=== PATIENT | male | born 1950 | race Caucasian/White ===

== ENCOUNTER 2019-07-07 12:21 | Emergency (ER) | payer MEDICARE, SELFPAY ==
--- NOTE | 2019-07-07 12:23 | ERPHSYRPT ---
- History of Present Illness Time Seen by Provider: 07/07/19 12:23 Physician History: This 68-year-old white gentleman who has a history of hypertension but has not been taking his medications for at least 2 months. In the last 5 to 6 days he had noticed some pain in the back of his head. He has had no trauma. He has had no visual changes. He has had bilateral earaches over the same 5 to 6 days. No flulike symptoms. His blood pressure on arrival was systolic over 170 and diastolic over 100. Patient denies shortness of breath, he denies chest pain, he denies abdominal pain. He is active and walks often. Allergies/Adverse Reactions: No Known Drug Allergies Allergy (Unverified 07/26/11 12:04) Hx Tetanus, Diphtheria Vaccination/Date Given: Yes Hx Influenza Vaccination/Date Given: No (2010) Hx Pneumococcal Vaccination/Date Given: No Travel Risk - International Travel Have you traveled outside of the country in past 3 weeks: No Have you or anyone close to you been diagnosed with or: No Do your reside in a community with a known COVID-19 case?: Yes If Yes where:: [facility] - Coronavirus Screening Has patient experienced Coronavirus symptoms: No - Review of Systems Constitutional: No Symptoms Eyes: No Symptoms Ears, Nose, & Throat: No Symptoms Respiratory: No Symptoms Cardiac: No Symptoms Abdominal/Gastrointestinal: No Symptoms Genitourinary Symptoms: No Symptoms Musculoskeletal: No Symptoms Skin: No Symptoms Neurological: Headache Psychological: No Symptoms Endocrine: No Symptoms Hematologic/Lymphatic: No Symptoms Immunological/Allergic: No Symptoms All Other Systems: Reviewed and Negative - Past Medical History Pertinent Past Medical History: Yes Neurological History: No Pertinent History ENT History: Macular Degeneration Cardiac History: Other Respiratory History: No Pertinent History Endocrine Medical History: No Pertinent History Musculoskeletal History: Arthritis GI Medical History: Diverticulitis, Diverticulosis History: Other Psycho-Social History: No Pertinent History Male Reproductive Disorders: No Pertinent History Other Medical History: kidney stone - Past Surgical History Past Surgical History: Yes Neuro Surgical History: No Pertinent History Cardiac: No Pertinent History Respiratory: No Pertinent History Gastrointestinal: Bowel Surgery Genitourinary: No Pertinent History Musculoskeletal: No Pertinent History, Orthopedic Surgery Male Surgical History: No Pertinent History Other Surgical History: CYSTOSCOPY TO REMOVE KIDNEY STONE. RIGHT BELOW ELBOW AMPUTEE. RIGHT LEG SURGERY - Social History Smoking Status: Current every day smoker How long have you smoked: 40 Exposure to second hand smoke: Yes Alcohol Use: Socially Drug Use: none Patient Lives Alone: No Significant Family History: no pertinent family hx - Nursing Vital Signs Nursing Vital Signs: Initial Vital Signs Temperature 97.8 F 07/07/19 12:26 Pulse Rate 66 07/07/19 12:26 Respiratory Rate 20 07/07/19 12:26 Blood Pressure 176/101 07/07/19 12:26 O2 Sat by Pulse Oximetry 99 07/07/19 12:26 Pain Scale Pain Intensity 8 - Physical Exam General Appearance: no apparent distress, alert, anxiety Eye Exam: PERRL/EOMI, eyes nml inspection Ears, Nose, Throat Exam: normal ENT inspection, moist mucous membranes Neck Exam: normal inspection, non-tender, supple, full range of motion Respiratory Exam: normal breath sounds, lungs clear, airway intact, No chest tenderness, No respiratory distress Cardiovascular Exam: regular rate/rhythm, normal heart sounds, normal peripheral pulses Gastrointestinal/Abdominal Exam: soft, No normal bowel sounds, No tenderness, No guarding, No rebound Back Exam: normal inspection, normal range of motion, No CVA tenderness Extremity Exam: normal inspection, normal range of motion, pelvis stable Mental Status Exam: alert, oriented x 3, 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 Exam: normal hearing, normal speech, PERRL, tongue midline Coordination/Gait Exam: normal finger to nose, normal gait, normal cerebellar function Motor/Sensory Exam: no motor deficit, no sensory deficit Skin Exam: normal color, warm, dry Lymphatic Exam: No adenopathy SpO2 Interpretation: normal O2 Delivery: Room Air - Course Nursing assessment & vital signs reviewed: Yes Ordered Tests: Active Orders 24 hr Category Date Time Status HEAD WITHOUT CONTRAST [CT] Stat Exams 07/07/19 12:41 Completed Medication Summary Discontinued Medications Generic Name Dose Route Start Last Admin Trade Name Freq PRN Reason Stop Dose Admin Hydrocodone Bitart/Acetaminophen 1 tab 07/07/19 12:41 07/07/19 12:55 [place] 7.5/325 Mg Tab PO 07/07/19 12:42 1 tab STAT ONE Administration Clonidine 0.1 mg 07/07/19 12:41 07/07/19 12:55 [place] 0.1 Mg PO 07/07/19 12:42 0.1 mg STAT ONE Administration Clonidine Confirm 07/07/19 12:48 [place]ap[place] 0.1 Mg Administered 07/07/19 12:49 Dose 0.1 mg .ROUTE .STK-MED ONE - Progress Progress: improved, re-examined Air Movement: good Progress Note: 07/07/19 13:24 CAT scan of his head reveals no evidence of any acute intracranial process. Patient symptoms have improved. His blood pressure at the time of discharge is 146/87. Blood Culture(s) Obtained: No Antibiotics given: No Counseled pt/family regarding: diagnosis, need for follow-up, rad results - Departure Departure Disposition: Home Clinical Impression: Hypertension, Headache Condition: Stable Critical Care Time: No Referrals: JONATHAN BOOGIE [Primary Care Provider] - Additional Instructions: Take your medication as prescribed. Follow-up with your primary care for persistent symptoms. Keep twice a day log of your blood pressure. Prescriptions: Hydrocodone/APAP 5-325 Tab^^^ [[place] 5-325 Tablet^^^] 1 tab PO Q12H PRN PRN #4 tablet MDD 2 PRN Reason: Pain
[2019-07-07] MEDS ORDERED: Catapres 0.1 MG PO ONE (12:41)
[2019-07-07] MEDS ORDERED: NORCO 7.5/325 MG TAB PO ONE (12:41)
[2019-07-07] MEDS ORDERED: Catapres 0.1 MG ONE (12:48)
--- NOTE | 2019-07-07 13:08 | XRAY ---
Indication: Occipital headache for 5-6 days. No known injury. Multiple contiguous axial images obtained through the head without contrast. Comparison: October 09, 2012. Again normal appearing brain parenchyma, ventricles, and bony calvarium. Incompletely visualized 1 cm right maxillary sinus polyp/retention cyst not previously imaged. Remaining visualized paranasal sinuses and mastoid air cells are clear. Impression: Small right maxillary sinus polyp/retention cyst. Remaining CT head without contrast exam is normal.
[2019-07-07 13:30] VITALS: BP 146/87; PULSE 56; O2SAT 98
== END 2019-07-07 13:45 | disposition home or self-care (01) ==
LOC: ED 12:21
DX: I10 Essential (primary) hypertension (principal); R51 Headache; Z91.14 Patient's other noncompliance with medication regimen; Z87.442 Personal history of urinary calculi
CPT/HCPCS: 70450; 99283; A9270-GY

== ENCOUNTER 2020-10-28 07:22 | Day surgery (SDC) | payer MEDICARE ==
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
[2020-10-28] MEDS ORDERED: Lactated Ringers 1,000 ML IV SCH (07:30)
[2020-10-28] MEDS ORDERED: Lactated Ringers 1,000 ML IV ONE (07:49)
[2020-10-28] MEDS ORDERED: DIPRIVAN 200 MG/20 ML IV ONE ×3 (10:42→11:01)
[2020-10-28 11:51] VITALS: BP 143/90; PULSE 62; O2SAT 98
--- NOTE | 2020-10-28 14:07 | OP ---
SURGERY DATE/TIME: 10/28/2020 1042 PREOPERATIVE DIAGNOSIS: Anemia. POSTOPERATIVE DIAGNOSES: 1) Mild antritis with very minimal blood loss. 2) Satisfactory colon with no blood loss. PROCEDURES: 1) EGD with antral biopsy. 2) Colonoscopy complete to the cecum with findings of moderate hemorrhoids. SURGEON: Marvel Aviles M.D. ANESTHESIA: MAC. COMPLICATIONS: None. CONDITION: Stable. INDICATION: The patient is anemic and presents for both upper and lower scope. DESCRIPTION OF PROCEDURE: Taken to endoscopy. Pharyngoesophageal junction normal. Esophagus normal down to gastroesophageal junction. Gastroesophageal junction Grade 2/4 gastroesophageal reflux disease. There is some antritis. Mid Level Business Analyst biopsy of the antritis. Duodenal bulb, second portion of duodenum satisfactory. Scope looped upon itself. There was some hiatal hernia. The scope was withdrawn. Anal digital examination satisfactory. Scope advanced to the cecum. There were moderate internal hemorrhoids. There was one prolapsing hemorrhoid/polyp looked totally benign. Circumferential withdrawal moderate internal and external hemorrhoids present. The patient tolerated the procedure satisfactorily.
== END 2020-10-28 12:06 | disposition home or self-care (01) ==
LOC: SDC 07:22
PROVIDERS: ATTEND Surgery
DX: K29.61 Other gastritis with bleeding (principal); D64.9 Anemia, unspecified; K64.8 Other hemorrhoids; Z79.899 Other long term (current) drug therapy
CPT/HCPCS: 99100; J2704

== ENCOUNTER 2021-03-20 11:33 | Observation (INO) | payer MEDICARE, SELFPAY ==
[2021-03-20] MEDS: Sodium Chloride 0.9% 1000 ML 1,000 ML IV SCH ×2 (11:57→18:38)
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
[2021-03-20 13:00] LABS: Hemoglobin 8.5 gm/dl (12.5-18.0); Mean Cell Volume 72.6 fl (78-100); Mean Corpuscular Hemoglobin 20.6 pg (26-32); Mean Corpuscular Hgb Concent. 28.3 g/dl (32-36); Mean Platelet Volume 9.6 fl (7.5-11.0); Platelet Count 164 K/mm3 (150-450); Red Blood Count 4.13 M/mm3 (4.1-5.6); Red Cell Distribution Width 17.2 % (11.5-14.0); White Blood Count 2.8 K/mm3 (4.0-10.5)
[2021-03-20 13:01] LABS: INR 1.1 (0.8-3.0)
[2021-03-20 13:11] LABS: COVID AG -BINAX NOW RAPID TEST NEGATIVE (NEGATIVE)
[2021-03-20 13:14] LABS: ALBUMIN 4.1 g/dL (3.5-5.0); ALKALINE PHOSPHATASE 60 U/L (38-126); AMYLASE 73 U/L (30-110); ANION GAP 10.4 MEQ/L (5-15); BLOOD UREA NITROGEN 22 mg/dL (9-20); CHLORIDE 109 mmol/L (98-107); Carbon Dioxide 27 mmol/L (22-30); Creatinine 1 0.82 mg/dL (0.66-1.25); EST GLOMERULAR FILTRATION RATE > 60.0 ML/MIN; Glucose 86 mg/dL (74-106); LIPASE 98 U/L (23-300); MAGNESIUM 1.9 mg/dL (1.6-2.3); NT PRO BNP 166 pg/mL (0-900); Potassium 4.5 mmol/L (3.5-5.1); SGOT/AST 23 U/L (17-59); SGPT/ALT 16 U/L (0-50); SODIUM 142 mmol/L (137-145); Total Protein 6.8 g/dL (6.3-8.2)
[2021-03-20 13:40] LABS: INFLUENZA A NEGATIVE (NEGATIVE); INFLUENZA B NEGATIVE (NEGATIVE)
[2021-03-20 15:23] LABS: Appearance CLEAR (CLEAR); Bilirubin NEGATIVE (NEGATIVE); Blood SMALL Ery/ul (0-5); Glucose NEGATIVE (NEGATIVE); Ketones NEGATIVE (NEGATIVE); Leukocyte Esterase NEGATIVE (NEGATIVE); Nitrite NEGATIVE (NEGATIVE); Protein,Urine Dip NEGATIVE (Negative); Urobilinogen NEGATIVE mg/dL (0-1)
[2021-03-20 15:23] LABS: Eosinophil 2 % (0.00-3.0); Lymphocytes 20 % (24-44); Monocyte 10 % (0.0-12.0); Neutrophils 68 % (36.-66.); Total Cells Counted 100
[2021-03-20 15:24] LABS: ANISOCYTOSIS 1+; Hypochromia 1+; Platelet Estimate NORMAL (NORMAL)
[2021-03-20] MEDS ORDERED: ROCEPHIN 1 Gm-D5w 50 ml Bag** 1 G/50 ML IVPB IV ONE (18:15)
[2021-03-20] MEDS ORDERED: solu-MEDROL ONE ×2 (18:15→23:25)
[2021-03-20] MEDS: solu-MEDROL 125 MG, Sterile H2O 10 ml 2 ML IV SCH ×4 (18:38→23:33)
[2021-03-20] MEDS: ROCEPHIN 1 Gm-D5w 50 ml Bag** 1 G/50 ML IVPB IV SCH (18:38)
--- NOTE | 2021-03-20 19:12 | XRAY ---
Indication: Short of breath. D-dimer 331. History emphysema. Multiple contiguous axial images obtained through the chest using 80 cc Isovue 370 contrast and PE protocol. Comparison: November 05, 2020. There is good opacification of the pulmonary arteries to include the lobar and segmental branches. No pulmonary embolus. Heart not enlarged. Aorta is normal in course and caliber without aneurysm. Stable chunky mediastinal and right hilar calcified nodes. No pathologic mediastinal/hilar lymphadenopathy. Stable small hiatal hernia. Lungs again demonstrates mild interstitial alveolar opacities in the peripheral right lower and lesser degree right upper lobes less than before. There is again moderate right pleural effusion more than before. Remaining lungs again demonstrates pulmonary emphysema and bilateral tiny calcified granulomas. Stable tiny metallic shrapnel in the right chest wall and right lower lobe. Bony thorax intact. Limited upper abdomen again demonstrates tiny calcified splenic granulomas. Impression: 1. Negative pulmonary embolus. 2. Right upper and right lower lobe interstitial alveolar opacities less than before. Increasing moderate right effusion. 3. Again incidental pulmonary emphysema, small hiatal hernia, metallic shrapnel, and old granulomatous disease. Comment: Preliminary interpretation made by [facility]. No critical discrepancy.
--- NOTE | 2021-03-20 19:14 | XRAY ---
Indication: Short of breath. History emphysema. Comparison: September 23, 2020. Portable chest again hyperinflated with CT proven small right effusion and mediastinal/hilar calcified nodes. Remaining heart and lungs are unremarkable. Bony thorax intact again with numerous right chest radiopaque foreign bodies.
[2021-03-20] MEDS ORDERED: Sterile H2O 10 ml IJ ONE (23:25)
[2021-03-20] MEDS: TYLENOL EXTRA STRENGTH 500 MG PO PRN (23:58)
[2021-03-21] MEDS ORDERED: Sterile H2O 10 ml IJ ONE (05:23)
[2021-03-21] MEDS ORDERED: solu-MEDROL ONE (05:23)
[2021-03-21] MEDS: solu-MEDROL 125 MG, Sterile H2O 10 ml 2 ML IV SCH ×2 (05:30)
[2021-03-21 05:56] LABS: Hematocrit 29.1 % (42-50); Hemoglobin 8.4 gm/dl (12.5-18.0); Mean Cell Volume 72.9 fl (78-100); Mean Corpuscular Hemoglobin 21.1 pg (26-32); Mean Corpuscular Hgb Concent. 28.9 g/dl (32-36); Mean Platelet Volume 10.6 fl (7.5-11.0); Platelet Count 169 K/mm3 (150-450); Red Blood Count 3.99 M/mm3 (4.1-5.6); Red Cell Distribution Width 16.8 % (11.5-14.0); White Blood Count 3.4 K/mm3 (4.0-10.5)
[2021-03-21 06:05] LABS: ALBUMIN 3.7 g/dL (3.5-5.0); ALKALINE PHOSPHATASE 51 U/L (38-126); ANION GAP 11.7 MEQ/L (5-15); BLOOD UREA NITROGEN 21 mg/dL (9-20); CHLORIDE 109 mmol/L (98-107); Calcium 8.4 mg/dL (8.4-10.2); Carbon Dioxide 22 mmol/L (22-30); Creatinine 1 0.66 mg/dL (0.66-1.25); EST GLOMERULAR FILTRATION RATE > 60.0 ML/MIN; Glucose 177 mg/dL (74-106); Potassium 4.1 mmol/L (3.5-5.1); SGOT/AST 27 U/L (17-59); SGPT/ALT 15 U/L (0-50); SODIUM 139 mmol/L (137-145); Total Protein 6.6 g/dL (6.3-8.2)
[2021-03-21 07:45] LABS: Slide Review YES
--- NOTE | 2021-03-21 08:50 | PCM.SSS ---
History of Present Illness - Chief Complaint Chief Complaint: COPD EXACERBATION History of Present Illness: is a 70 year old male pt of mined from [facility] with CAD, COPD, hx traumatic amputation who came in with STOREY and chest pain to ER. The CTA chest was neg for PE; did show some worsening R pleural effusion. Pt is a poor historian; he had increasing STOREY and [place], walked perhaps 1000 feet and when he came back was more short of breath than usual. He did c/o some chest pain recently, substernal and L sided with some radiation into the R shoulder. Says it was "just a soreness" then rates it 6-09/04. He attributes this to picking up large pieces of metal recently. Has not required O2. His hgb was 8.5 on admission; is 8.4 this morning. He denies any melena or hematochezia. Apparently he had an EGD/colonoscopy not long ago although I cannot find it in the EMR. Pt has a management aide, Dr. Pugh, but he has cancelled appointments with him and does not see him regularly. Pt c/o bilat LE pain worsening for the past 5 mo or so. - Review of Systems Cardiac: Chest Pain, Edema (chronic, LE bilat), Palpitations Musculoskeletal: Other (bilat calf pain, worsening over past 5 mo) Neurological: Dizziness (he says x 1 about 3 mo ago; says intermittently regardless of activity) All Other Systems: Reviewed and Negative Medications & Allergies Home Medications: Home Medication List No Reportable Medications [No Reported Medications] 03/20/21 [History Confirmed 03/20/21] Allergies/Adverse Reactions: Allergies Allergy/AdvReac Type Severity Reaction Status Date / Time No Known Drug Allergies Allergy Verified 03/20/21 11:55 - Past Medical History Past Medical History: Yes Neurological History: No Pertinent History ENT History: Macular Degeneration Cardiac History: Other Respiratory History: COPD Endocrine Medical History: No Pertinent History Musculoskelatal History: Arthritis GI Medical History: Diverticulitis, Diverticulosis History: Other Pyscho-Social History: No Pertinent History Male Reproductive Disorders: Prostate Problems Comment: kidney stone, mitral valve prolapse, heart starting to enlarge possibly from a bleed, anemia - Past Surgical History Past Surgical History: Yes Neuro Surgical History: No Pertinent History Cardiac History: No Pertinent History Respiratory Surgery: No Pertinent History GI Surgical History: Bowel Surgery Genitourinary Surgical Hx: No Pertinent History Musculskeletal Surgical Hx: Orthopedic Surgery Male Surgical History: No Pertinent History Other Surgical History: CYSTOSCOPY TO REMOVE KIDNEY STONE. RIGHT BELOW ELBOW AMPUTEE. RIGHT LEG SURGERY. portion of bowel and stomach removed - Social History Smoking Status: Current every day smoker How long have you smoked: 50 YEARS Exposure to second hand smoke: Yes Alcohol: None Drug Use: none Significant Family History: no pertinent family hx - Physical Exam Vital Signs: Vital Signs - 24 hr Temp Pulse Resp BP Pulse Ox 03/21/21 07:53 97.0 F 63 19 125/66 93 L 03/21/21 04:00 98.3 F 60 16 131/79 93 L 03/21/21 00:00 97.5 F 68 16 151/72 96 03/20/21 20:00 97.7 F 64 20 151/77 94 L 03/20/21 18:21 100 03/20/21 18:19 72 18 100 03/20/21 17:38 97.7 F 72 20 161/80 100 03/20/21 16:02 97 03/20/21 15:16 59 L 16 150/88 98 03/20/21 11:40 97.8 F 64 18 152/94 97 General Appearance: no apparent distress, alert Neurologic Exam: oriented x 3, cooperative Eye Exam: eyes nml inspection Ears, Nose, Throat Exam: moist mucous membranes Neck Exam: normal inspection, non-tender, No lymphadenopathy Respiratory Exam: lungs clear, diminished breath sounds (good air exchange), No crackles/rales, No rhonchi, No wheezing Cardiovascular Exam: regular rate/rhythm, normal heart sounds, No murmur Gastrointestinal/Abdomen Exam: soft, normal bowel sounds, No tenderness, No distention, No mass, No guarding, No rebound Back Exam: normal inspection, No CVA tenderness, No rash Extremity Exam: normal inspection, No pedal edema, No swelling Skin Exam: normal color, warm, dry, No rash Results - Labs Lab/Micro Results: Lab Results-Last 24 Hours 03/20/21 03/20/21 03/20/21 Range/Units 12:15 12:19 12:19 WBC (4.0-10.5) K/mm3 RBC (4.1-5.6) M/mm3 Hgb (12.5-18.0) gm/dl Hct (42-50) % MCV (78-100) fl MCH (26-32) pg MCHC (32-36) g/dl RDW (11.5-14.0) % Plt Count (150-450) K/mm3 MPV (7.5-11.0) fl Segmented Neutrophils (36.-66.) % Lymphocytes (Manual) (24-44) % Monocytes (Manual) (0.0-12.0) % Eosinophils (Manual) (0.00-3.0) % Hypochromia Platelet Estimate (NORMAL) RBC Morphology Anisocytosis PT (9.4-12.5) SECONDS INR (0.8-3.0) D-Dimer (215-500) ng/mL Sodium (137-145) mmol/L Potassium (3.5-5.1) mmol/L Chloride (98-107) mmol/L Carbon Dioxide (22-30) mmol/L Anion Gap (5-15) MEQ/L BUN (9-20) mg/dL Creatinine (0.66-1.25) mg/dL Estimated GFR ML/MIN Glucose (74-106) mg/dL Lactic Acid (0.4-2.0) Calcium (8.4-10.2) mg/dL Magnesium (1.6-2.3) mg/dL Total Bilirubin (0.2-1.3) mg/dL AST (17-59) U/L ALT (0-50) U/L Alkaline Phosphatase (38-126) U/L Troponin I (0.000-0.034) ng/mL NT-Pro-B Natriuret Pep (0-900) pg/mL Serum Total Protein (6.3-8.2) g/dL Albumin (3.5-5.0) g/dL Amylase (30-110) U/L Lipase (23-300) U/L Procalcitonin (0.030-0.080) ng/mL Urine Color YELLOW (YELLOW) Urine Appearance CLEAR (CLEAR) Urine pH 6.0 (5-6) Ur Specific [place] 1.020 (1.005-1.025) Urine Protein NEGATIVE (Negative) Urine Ketones NEGATIVE (NEGATIVE) Urine Blood SMALL (0-5) Juli[place]esar/ul Urine Nitrite NEGATIVE (NEGATIVE) Urine Bilirubin NEGATIVE (NEGATIVE) Urine Urobilinogen NEGATIVE (0-1) mg/dL Ur Leukocyte Esterase NEGATIVE (NEGATIVE) Urine WBC (Auto) NONE (0-5) /HPF Urine RBC (Auto) NONE (0-2) /HPF U Epithel Cells (Auto) NONE (FEW) /HPF Urine Bacteria (Auto) NONE (NEGATIVE) /HPF Urine Culture Reflexed NO (NO) Urine Glucose NEGATIVE (NEGATIVE) mg/dL Influenza Type A Ag NEGATIVE (NEGATIVE) Influenza Type B Ag NEGATIVE (NEGATIVE) SARS-CoV-2 Ag (Rapid) NEGATIVE (NEGATIVE) Slides for Path Review 03/20/21 03/20/21 03/20/21 Range/Units 12:29 12:29 12:29 WBC 2.8 L (4.0-10.5) K/mm3 RBC 4.13 (4.1-5.6) M/mm3 Hgb 8.5 L (12.5-18.0) gm/dl Hct 30.0 L (42-50) % MCV 72.6 L (78-100) fl MCH 20.6 L (26-32) pg MCHC 28.3 L (32-36) g/dl RDW 17.2 H (11.5-14.0) % Plt Count 164 (150-450) K/mm3 MPV 9.6 (7.5-11.0) fl Segmented Neutrophils 68 H (36.-66.) % Lymphocytes (Manual) 20 L (24-44) % Monocytes (Manual) 10 (0.0-12.0) % Eosinophils (Manual) 2 (0.00-3.0) % Hypochromia 1+ Platelet Estimate NORMAL (NORMAL) RBC Morphology ABNORMAL Anisocytosis 1+ PT 13.0 H (9.4-12.5) SECONDS INR 1.10 (0.8-3.0) D-Dimer 331 (215-500) ng/mL Sodium 142 (137-145) mmol/L Potassium 4.5 (3.5-5.1) mmol/L Chloride 109 H (98-107) mmol/L Carbon Dioxide 27 (22-30) mmol/L Anion Gap 10.4 (5-15) MEQ/L BUN 22 H (9-20) mg/dL Creatinine 0.82 (0.66-1.25) mg/dL Estimated GFR > 60.0 ML/MIN Glucose 86 (74-106) mg/dL Lactic Acid (0.4-2.0) Calcium 9.0 (8.4-10.2) mg/dL Magnesium 1.9 (1.6-2.3) mg/dL Total Bilirubin 0.60 (0.2-1.3) mg/dL AST 23 (17-59) U/L ALT 16 (0-50) U/L Alkaline Phosphatase 60 (38-126) U/L Troponin I (0.000-0.034) ng/mL NT-Pro-B Natriuret Pep 166 (0-900) pg/mL Serum Total Protein 6.8 (6.3-8.2) g/dL Albumin 4.1 (3.5-5.0) g/dL Amylase 73 (30-110) U/L Lipase 98 (23-300) U/L Procalcitonin (0.030-0.080) ng/mL Urine Color (YELLOW) Urine Appearance (CLEAR) Urine pH (5-6) Ur Specific [place] (1.005-1.025) Urine Protein (Negative) Urine Ketones (NEGATIVE) Urine Blood (0-5) Juliocesar/ul Urine Nitrite (NEGATIVE) Urine Bilirubin (NEGATIVE) Urine Urobilinogen (0-1) mg/dL Ur Leukocyte Esterase (NEGATIVE) Urine WBC (Auto) (0-5) /HPF Urine RBC (Auto) (0-2) /HPF U Epithel Cells (Auto) (FEW) /HPF Urine Bacteria (Auto) (NEGATIVE) /HPF Urine Culture Reflexed (NO) Urine Glucose (NEGATIVE) mg/dL Influenza Type A Ag (NEGATIVE) Influenza Type B Ag (NEGATIVE) SARS-CoV-2 Ag (Rapid) (NEGATIVE) Slides for Path Review 03/20/21 03/20/21 03/20/21 Range/Units 12:29 12:29 12:40 WBC (4.0-10.5) K/mm3 RBC (4.1-5.6) M/mm3 Hgb (12.5-18.0) gm/dl Hct (42-50) % MCV (78-100) fl MCH (26-32) pg MCHC (32-36) g/dl RDW (11.5-14.0) % Plt Count (150-450) K/mm3 MPV (7.5-11.0) fl Segmented Neutrophils (36.-66.) % Lymphocytes (Manual) (24-44) % Monocytes (Manual) (0.0-12.0) % Eosinophils (Manual) (0.00-3.0) % Hypochromia Platelet Estimate (NORMAL) RBC Morphology Anisocytosis PT (9.4-12.5) SECONDS INR (0.8-3.0) D-Dimer (215-500) ng/mL Sodium (137-145) mmol/L Potassium (3.5-5.1) mmol/L Chloride (98-107) mmol/L Carbon Dioxide (22-30) mmol/L Anion Gap (5-15) MEQ/L BUN (9-20) mg/dL Creatinine (0.66-1.25) mg/dL Estimated GFR ML/MIN Glucose (74-106) mg/dL Lactic Acid 0.7 (0.4-2.0) Calcium (8.4-10.2) mg/dL Magnesium (1.6-2.3) mg/dL Total Bilirubin (0.2-1.3) mg/dL AST (17-59) U/L ALT (0-50) U/L Alkaline Phosphatase (38-126) U/L Troponin I < 0.012 (0.000-0.034) ng/mL NT-Pro-B Natriuret Pep (0-900) pg/mL Serum Total Protein (6.3-8.2) g/dL Albumin (3.5-5.0) g/dL Amylase (30-110) U/L Lipase (23-300) U/L Procalcitonin 0.038 (0.030-0.080) ng/mL Urine Color (YELLOW) Urine Appearance (CLEAR) Urine pH (5-6) Ur Specific [place] (1.005-1.025) Urine Protein (Negative) Urine Ketones (NEGATIVE) Urine Blood (0-5) Juliocesar/ul Urine Nitrite (NEGATIVE) Urine Bilirubin (NEGATIVE) Urine Urobilinogen (0-1) mg/dL Ur Leukocyte Esterase (NEGATIVE) Urine WBC (Auto) (0-5) /HPF Urine RBC (Auto) (0-2) /HPF U Epithel Cells (Auto) (FEW) /HPF Urine Bacteria (Auto) (NEGATIVE) /HPF Urine Culture Reflexed (NO) Urine Glucose (NEGATIVE) mg/dL Influenza Type A Ag (NEGATIVE) Influenza Type B Ag (NEGATIVE) SARS-CoV-2 Ag (Rapid) (NEGATIVE) Slides for Path Review 03/20/21 03/20/21 03/21/21 Range/Units 14:16 18:45 04:30 WBC 3.4 L (4.0-10.5) K/mm3 RBC 3.99 L (4.1-5.6) M/mm3 Hgb 8.4 L (12.5-18.0) gm/dl Hct 29.1 L (42-50) % MCV 72.9 L (78-100) fl MCH 21.1 L (26-32) pg MCHC 28.9 L (32-36) g/dl RDW 16.8 H (11.5-14.0) % Plt Count 169 (150-450) K/mm3 MPV 10.6 (7.5-11.0) fl Segmented Neutrophils (36.-66.) % Lymphocytes (Manual) (24-44) % Monocytes (Manual) (0.0-12.0) % Eosinophils (Manual) (0.00-3.0) % Hypochromia Platelet Estimate (NORMAL) RBC Morphology Anisocytosis PT (9.4-12.5) SECONDS INR (0.8-3.0) D-Dimer (215-500) ng/mL Sodium (137-145) mmol/L Potassium (3.5-5.1) mmol/L Chloride (98-107) mmol/L Carbon Dioxide (22-30) mmol/L Anion Gap (5-15) MEQ/L BUN (9-20) mg/dL Creatinine (0.66-1.25) mg/dL Estimated GFR ML/MIN Glucose (74-106) mg/dL Lactic Acid (0.4-2.0) Calcium (8.4-10.2) mg/dL Magnesium (1.6-2.3) mg/dL Total Bilirubin (0.2-1.3) mg/dL AST (17-59) U/L ALT (0-50) U/L Alkaline Phosphatase (38-126) U/L Troponin I < 0.012 < 0.012 (0.000-0.034) ng/mL NT-Pro-B Natriuret Pep (0-900) pg/mL Serum Total Protein (6.3-8.2) g/dL Albumin (3.5-5.0) g/dL Amylase (30-110) U/L Lipase (23-300) U/L Procalcitonin (0.030-0.080) ng/mL Urine Color (YELLOW) Urine Appearance (CLEAR) Urine pH (5-6) Ur Specific [place] (1.005-1.025) Urine Protein (Negative) Urine Ketones (NEGATIVE) Urine Blood (0-5) Juliocesar/ul Urine Nitrite (NEGATIVE) Urine Bilirubin (NEGATIVE) Urine Urobilinogen (0-1) mg/dL Ur Leukocyte Esterase (NEGATIVE) Urine WBC (Auto) (0-5) /HPF Urine RBC (Auto) (0-2) /HPF U Epithel Cells (Auto) (FEW) /HPF Urine Bacteria (Auto) (NEGATIVE) /HPF Urine Culture Reflexed (NO) Urine Glucose (NEGATIVE) mg/dL Influenza Type A Ag (NEGATIVE) Influenza Type B Ag (NEGATIVE) SARS-CoV-2 Ag (Rapid) (NEGATIVE) Slides for Path Review YES 03/21/21 Range/Units 04:30 WBC (4.0-10.5) K/mm3 RBC (4.1-5.6) M/mm3 Hgb (12.5-18.0) gm/dl Hct (42-50) % MCV (78-100) fl MCH (26-32) pg MCHC (32-36) g/dl RDW (11.5-14.0) % Plt Count (150-450) K/mm3 MPV (7.5-11.0) fl Segmented Neutrophils (36.-66.) % Lymphocytes (Manual) (24-44) % Monocytes (Manual) (0.0-12.0) % Eosinophils (Manual) (0.00-3.0) % Hypochromia Platelet Estimate (NORMAL) RBC Morphology Anisocytosis PT (9.4-12.5) SECONDS INR (0.8-3.0) D-Dimer (215-500) ng/mL Sodium 139 (137-145) mmol/L Potassium 4.1 (3.5-5.1) mmol/L Chloride 109 H (98-107) mmol/L Carbon Dioxide 22 (22-30) mmol/L Anion Gap 11.7 (5-15) MEQ/L BUN 21 H (9-20) mg/dL Creatinine 0.66 (0.66-1.25) mg/dL Estimated GFR > 60.0 ML/MIN Glucose 177 H (74-106) mg/dL Lactic Acid (0.4-2.0) Calcium 8.4 (8.4-10.2) mg/dL Magnesium (1.6-2.3) mg/dL Total Bilirubin 0.60 (0.2-1.3) mg/dL AST 27 (17-59) U/L ALT 15 (0-50) U/L Alkaline Phosphatase 51 (38-126) U/L Troponin I (0.000-0.034) ng/mL NT-Pro-B Natriuret Pep (0-900) pg/mL Serum Total Protein 6.6 (6.3-8.2) g/dL Albumin 3.7 (3.5-5.0) g/dL Amylase (30-110) U/L Lipase (23-300) U/L Procalcitonin (0.030-0.080) ng/mL Urine Color (YELLOW) Urine Appearance (CLEAR) Urine pH (5-6) Ur Specific [place] (1.005-1.025) Urine Protein (Negative) Urine Ketones (NEGATIVE) Urine Blood (0-5) Juliocesar/ul Urine Nitrite (NEGATIVE) Urine Bilirubin (NEGATIVE) Urine Urobilinogen (0-1) mg/dL Ur Leukocyte Esterase (NEGATIVE) Urine WBC (Auto) (0-5) /HPF Urine RBC (Auto) (0-2) /HPF U Epithel Cells (Auto) (FEW) /HPF Urine Bacteria (Auto) (NEGATIVE) /HPF Urine Culture Reflexed (NO) Urine Glucose (NEGATIVE) mg/dL Influenza Type A Ag (NEGATIVE) Influenza Type B Ag (NEGATIVE) SARS-CoV-2 Ag (Rapid) (NEGATIVE) Slides for Path Review - Radiology Impressions Radiology Exams & Impressions: Radiology Procedures Category Date Time Status CHEST 1 VIEW (PORTABLE) Stat Exams 03/20/21 12:02 Completed CHEST WITH CONTRAST [CT] Stat Exams 03/20/21 14:38 Completed Assessment/Plan (1) Chest pain Current Visit: Yes Status: Acute Qualifiers: Chest pain type: other chest pain Qualified Code(s): R07.89 - Other chest pain; R07.8 - Other chest pain Assessment & Plan: Unsure if cardiac, but will have him do outpatient stress test. If troponins neg x 5, can d/c to home. Code(s): R07.9 - CHEST PAIN, UNSPECIFIED (2) COPD (chronic obstructive pulmonary disease) Current Visit: Yes Status: Chronic Qualifiers: COPD type: chronic bronchitis Chronic bronchitis type: unspecified Qualified Code(s): J42 - Unspecified chronic bronchitis Assessment & Plan: He was started on rocephin and IV steroids in ER. He does not endorse much improvement since then. Imaging does not support infectious process, so will stop IV rocephin but will continue steroid but po. He certainly does have COPD and although his lung exam is benign now, may be improved from ER exam due to steroids in the interim. (3) Anemia Current Visit: Yes Status: Acute Qualifiers: Anemia type: unspecified type Qualified Code(s): D64.9 - Anemia, unspecified Assessment & Plan: will f/u with hematology Code(s): D64.9 - ANEMIA, UNSPECIFIED (4) Leukopenia Current Visit: Yes Status: Acute Qualifiers: Leukopenia type: other Qualified Code(s): D72.818 - Other decreased white blood cell count Code(s): D72.819 - DECREASED WHITE BLOOD CELL COUNT, UNSPECIFIED (5) Bilateral leg pain Current Visit: Yes Status: Chronic Assessment & Plan: arterial and venous doppler today Code(s): M79.604 - PAIN IN RIGHT LEG; M79.605 - PAIN IN LEFT LEG (6) Tobacco abuse Current Visit: Yes Status: Acute Assessment & Plan: Says he currently smokes 1/2 PPD but "I don't even need to smoke." Discussed that he MUST stop smoking. Code(s): Z72.0 - TOBACCO USE Hospital Summary - Hospital Course Hospital Course: Pt is 70 yo male with COPD and CAD, TOB user, who was admitted through ER with CP/STOREY. His troponins are neg x 3; if all neg, will be discharged to home and will f/u outpatient with stress test. His CTA chest was neg for PE. He will be having arterial and venous dopplers of LE bilat for worsening bilat leg pain. He is also anemic, hgb at 8.5, with low WBC (3.4) - normal platelets - and will f/u outpatient with hematology. Joon and look at recent colonoscopy/EGD. F/u with me in 1 week. - Vitals & Intake/Output Vital Signs: Vital Signs Temperature 97.0 F 03/21/21 07:53 Pulse Rate 63 03/21/21 07:53 Respiratory Rate 19 03/21/21 07:53 Blood Pressure 125/66 03/21/21 07:53 O2 Sat by Pulse Oximetry 93 L 03/21/21 07:53 Intake & Output: Intake & Output 03/18/21 03/19/21 03/20/21 03/21/21 11:59 11:59 11:59 11:59 Intake Total 1296 Balance 1296 Weight 58.967 kg 62 kg - Lab Result Diagrams: 03/21/21 04:30 03/21/21 04:30 Lab Results-Last 24 Hrs: Lab Results-Last 24 Hours 03/20/21 03/20/21 03/20/21 Range/Units 12:15 12:19 12:19 WBC (4.0-10.5) K/mm3 RBC (4.1-5.6) M/mm3 Hgb (12.5-18.0) gm/dl Hct (42-50) % MCV (78-100) fl MCH (26-32) pg MCHC (32-36) g/dl RDW (11.5-14.0) % Plt Count (150-450) K/mm3 MPV (7.5-11.0) fl Segmented Neutrophils (36.-66.) % Lymphocytes (Manual) (24-44) % Monocytes (Manual) (0.0-12.0) % Eosinophils (Manual) (0.00-3.0) % Hypochromia Platelet Estimate (NORMAL) RBC Morphology Anisocytosis PT (9.4-12.5) SECONDS INR (0.8-3.0) D-Dimer (215-500) ng/mL Sodium (137-145) mmol/L Potassium (3.5-5.1) mmol/L Chloride (98-107) mmol/L Carbon Dioxide (22-30) mmol/L Anion Gap (5-15) MEQ/L BUN (9-20) mg/dL Creatinine (0.66-1.25) mg/dL Estimated GFR ML/MIN Glucose (74-106) mg/dL Lactic Acid (0.4-2.0) Calcium (8.4-10.2) mg/dL Magnesium (1.6-2.3) mg/dL Total Bilirubin (0.2-1.3) mg/dL AST (17-59) U/L ALT (0-50) U/L Alkaline Phosphatase (38-126) U/L Troponin I (0.000-0.034) ng/mL NT-Pro-B Natriuret Pep (0-900) pg/mL Serum Total Protein (6.3-8.2) g/dL Albumin (3.5-5.0) g/dL Amylase (30-110) U/L Lipase (23-300) U/L Procalcitonin (0.030-0.080) ng/mL Urine Color YELLOW (YELLOW) Urine Appearance CLEAR (CLEAR) Urine pH 6.0 (5-6) Ur Specific [place] 1.020 (1.005-1.025) Urine Protein NEGATIVE (Negative) Urine Ketones NEGATIVE (NEGATIVE) Urine Blood SMALL (0-5) Juliocesar/ul Urine Nitrite NEGATIVE (NEGATIVE) Urine Bilirubin NEGATIVE (NEGATIVE) Urine Urobilinogen NEGATIVE (0-1) mg/dL Ur Leukocyte Esterase NEGATIVE (NEGATIVE) Urine WBC (Auto) NONE (0-5) /HPF Urine RBC (Auto) NONE (0-2) /HPF U Epithel Cells (Auto) NONE (FEW) /HPF Urine Bacteria (Auto) NONE (NEGATIVE) /HPF Urine Culture Reflexed NO (NO) Urine Glucose NEGATIVE (NEGATIVE) mg/dL Influenza Type A Ag NEGATIVE (NEGATIVE) Influenza Type B Ag NEGATIVE (NEGATIVE) SARS-CoV-2 Ag (Rapid) NEGATIVE (NEGATIVE) Slides for Path Review 03/20/21 03/20/21 03/20/21 Range/Units 12:29 12:29 12:29 WBC 2.8 L (4.0-10.5) K/mm3 RBC 4.13 (4.1-5.6) M/mm3 Hgb 8.5 L (12.5-18.0) gm/dl Hct 30.0 L (42-50) % MCV 72.6 L (78-100) fl MCH 20.6 L (26-32) pg MCHC 28.3 L (32-36) g/dl RDW 17.2 H (11.5-14.0) % Plt Count 164 (150-450) K/mm3 MPV 9.6 (7.5-11.0) fl Segmented Neutrophils 68 H (36.-66.) % Lymphocytes (Manual) 20 L (24-44) % Monocytes (Manual) 10 (0.0-12.0) % Eosinophils (Manual) 2 (0.00-3.0) % Hypochromia 1+ Platelet Estimate NORMAL (NORMAL) RBC Morphology ABNORMAL Anisocytosis 1+ PT 13.0 H (9.4-12.5) SECONDS INR 1.10 (0.8-3.0) D-Dimer 331 (215-500) ng/mL Sodium 142 (137-145) mmol/L Potassium 4.5 (3.5-5.1) mmol/L Chloride 109 H (98-107) mmol/L Carbon Dioxide 27 (22-30) mmol/L Anion Gap 10.4 (5-15) MEQ/L BUN 22 H (9-20) mg/dL Creatinine 0.82 (0.66-1.25) mg/dL Estimated GFR > 60.0 ML/MIN Glucose 86 (74-106) mg/dL Lactic Acid (0.4-2.0) Calcium 9.0 (8.4-10.2) mg/dL Magnesium 1.9 (1.6-2.3) mg/dL Total Bilirubin 0.60 (0.2-1.3) mg/dL AST 23 (17-59) U/L ALT 16 (0-50) U/L Alkaline Phosphatase 60 (38-126) U/L Troponin I (0.000-0.034) ng/mL NT-Pro-B Natriuret Pep 166 (0-900) pg/mL Serum Total Protein 6.8 (6.3-8.2) g/dL Albumin 4.1 (3.5-5.0) g/dL Amylase 73 (30-110) U/L Lipase 98 (23-300) U/L Procalcitonin (0.030-0.080) ng/mL Urine Color (YELLOW) Urine Appearance (CLEAR) Urine pH (5-6) Ur Specific [place] (1.005-1.025) Urine Protein (Negative) Urine Ketones (NEGATIVE) Urine Blood (0-5) Juliocesar/ul Urine Nitrite (NEGATIVE) Urine Bilirubin (NEGATIVE) Urine Urobilinogen (0-1) mg/dL Ur Leukocyte Esterase (NEGATIVE) Urine WBC (Auto) (0-5) /HPF Urine RBC (Auto) (0-2) /HPF U Epithel Cells (Auto) (FEW) /HPF Urine Bacteria (Auto) (NEGATIVE) /HPF Urine Culture Reflexed (NO) Urine Glucose (NEGATIVE) mg/dL Influenza Type A Ag (NEGATIVE) Influenza Type B Ag (NEGATIVE) SARS-CoV-2 Ag (Rapid) (NEGATIVE) Slides for Path Review 03/20/21 03/20/21 03/20/21 Range/Units 12:29 12:29 12:40 WBC (4.0-10.5) K/mm3 RBC (4.1-5.6) M/mm3 Hgb (12.5-18.0) gm/dl Hct (42-50) % MCV (78-100) fl MCH (26-32) pg MCHC (32-36) g/dl RDW (11.5-14.0) % Plt Count (150-450) K/mm3 MPV (7.5-11.0) fl Segmented Neutrophils (36.-66.) % Lymphocytes (Manual) (24-44) % Monocytes (Manual) (0.0-12.0) % Eosinophils (Manual) (0.00-3.0) % Hypochromia Platelet Estimate (NORMAL) RBC Morphology Anisocytosis PT (9.4-12.5) SECONDS INR (0.8-3.0) D-Dimer (215-500) ng/mL Sodium (137-145) mmol/L Potassium (3.5-5.1) mmol/L Chloride (98-107) mmol/L Carbon Dioxide (22-30) mmol/L Anion Gap (5-15) MEQ/L BUN (9-20) mg/dL Creatinine (0.66-1.25) mg/dL Estimated GFR ML/MIN Glucose (74-106) mg/dL Lactic Acid 0.7 (0.4-2.0) Calcium (8.4-10.2) mg/dL Magnesium (1.6-2.3) mg/dL Total Bilirubin (0.2-1.3) mg/dL AST (17-59) U/L ALT (0-50) U/L Alkaline Phosphatase (38-126) U/L Troponin I < 0.012 (0.000-0.034) ng/mL NT-Pro-B Natriuret Pep (0-900) pg/mL Serum Total Protein (6.3-8.2) g/dL Albumin (3.5-5.0) g/dL Amylase (30-110) U/L Lipase (23-300) U/L Procalcitonin 0.038 (0.030-0.080) ng/mL Urine Color (YELLOW) Urine Appearance (CLEAR) Urine pH (5-6) Ur Specific [place] (1.005-1.025) Urine Protein (Negative) Urine Ketones (NEGATIVE) Urine Blood (0-5) [place]/ul Urine Nitrite (NEGATIVE) Urine Bilirubin (NEGATIVE) Urine Urobilinogen (0-1) mg/dL Ur Leukocyte Esterase (NEGATIVE) Urine WBC (Auto) (0-5) /HPF Urine RBC (Auto) (0-2) /HPF U Epithel Cells (Auto) (FEW) /HPF Urine Bacteria (Auto) (NEGATIVE) /HPF Urine Culture Reflexed (NO) Urine Glucose (NEGATIVE) mg/dL Influenza Type A Ag (NEGATIVE) Influenza Type B Ag (NEGATIVE) SARS-CoV-2 Ag (Rapid) (NEGATIVE) Slides for Path Review 03/20/21 03/20/21 03/21/21 Range/Units 14:16 18:45 04:30 WBC 3.4 L (4.0-10.5) K/mm3 RBC 3.99 L (4.1-5.6) M/mm3 Hgb 8.4 L (12.5-18.0) gm/dl Hct 29.1 L (42-50) % MCV 72.9 L (78-100) fl MCH 21.1 L (26-32) pg MCHC 28.9 L (32-36) g/dl RDW 16.8 H (11.5-14.0) % Plt Count 169 (150-450) K/mm3 MPV 10.6 (7.5-11.0) fl Segmented Neutrophils (36.-66.) % Lymphocytes (Manual) (24-44) % Monocytes (Manual) (0.0-12.0) % Eosinophils (Manual) (0.00-3.0) % Hypochromia Platelet Estimate (NORMAL) RBC Morphology Anisocytosis PT (9.4-12.5) SECONDS INR (0.8-3.0) D-Dimer (215-500) ng/mL Sodium (137-145) mmol/L Potassium (3.5-5.1) mmol/L Chloride (98-107) mmol/L Carbon Dioxide (22-30) mmol/L Anion Gap (5-15) MEQ/L BUN (9-20) mg/dL Creatinine (0.66-1.25) mg/dL Estimated GFR ML/MIN Glucose (74-106) mg/dL Lactic Acid (0.4-2.0) Calcium (8.4-10.2) mg/dL Magnesium (1.6-2.3) mg/dL Total Bilirubin (0.2-1.3) mg/dL AST (17-59) U/L ALT (0-50) U/L Alkaline Phosphatase (38-126) U/L Troponin I < 0.012 < 0.012 (0.000-0.034) ng/mL NT-Pro-B Natriuret Pep (0-900) pg/mL Serum Total Protein (6.3-8.2) g/dL Albumin (3.5-5.0) g/dL Amylase (30-110) U/L Lipase (23-300) U/L Procalcitonin (0.030-0.080) ng/mL Urine Color (YELLOW) Urine Appearance (CLEAR) Urine pH (5-6) Ur Specific [place] (1.005-1.025) Urine Protein (Negative) Urine Ketones (NEGATIVE) Urine Blood (0-5) [place]/ul Urine Nitrite (NEGATIVE) Urine Bilirubin (NEGATIVE) Urine Urobilinogen (0-1) mg/dL Ur Leukocyte Esterase (NEGATIVE) Urine WBC (Auto) (0-5) /HPF Urine RBC (Auto) (0-2) /HPF U Epithel Cells (Auto) (FEW) /HPF Urine Bacteria (Auto) (NEGATIVE) /HPF Urine Culture Reflexed (NO) Urine Glucose (NEGATIVE) mg/dL Influenza Type A Ag (NEGATIVE) Influenza Type B Ag (NEGATIVE) SARS-CoV-2 Ag (Rapid) (NEGATIVE) Slides for Path Review YES 03/21/21 Range/Units 04:30 WBC (4.0-10.5) K/mm3 RBC (4.1-5.6) M/mm3 Hgb (12.5-18.0) gm/dl Hct (42-50) % MCV (78-100) fl MCH (26-32) pg MCHC (32-36) g/dl RDW (11.5-14.0) % Plt Count (150-450) K/mm3 MPV (7.5-11.0) fl Segmented Neutrophils (36.-66.) % Lymphocytes (Manual) (24-44) % Monocytes (Manual) (0.0-12.0) % Eosinophils (Manual) (0.00-3.0) % Hypochromia Platelet Estimate (NORMAL) RBC Morphology Anisocytosis PT (9.4-12.5) SECONDS INR (0.8-3.0) D-Dimer (215-500) ng/mL Sodium 139 (137-145) mmol/L Potassium 4.1 (3.5-5.1) mmol/L Chloride 109 H (98-107) mmol/L Carbon Dioxide 22 (22-30) mmol/L Anion Gap 11.7 (5-15) MEQ/L BUN 21 H (9-20) mg/dL Creatinine 0.66 (0.66-1.25) mg/dL Estimated GFR > 60.0 ML/MIN Glucose 177 H (74-106) mg/dL Lactic Acid (0.4-2.0) Calcium 8.4 (8.4-10.2) mg/dL Magnesium (1.6-2.3) mg/dL Total Bilirubin 0.60 (0.2-1.3) mg/dL AST 27 (17-59) U/L ALT 15 (0-50) U/L Alkaline Phosphatase 51 (38-126) U/L Troponin I (0.000-0.034) ng/mL NT-Pro-B Natriuret Pep (0-900) pg/mL Serum Total Protein 6.6 (6.3-8.2) g/dL Albumin 3.7 (3.5-5.0) g/dL Amylase (30-110) U/L Lipase (23-300) U/L Procalcitonin (0.030-0.080) ng/mL Urine Color (YELLOW) Urine Appearance (CLEAR) Urine pH (5-6) Ur Specific [place] (1.005-1.025) Urine Protein (Negative) Urine Ketones (NEGATIVE) Urine Blood (0-5) [place]/ul Urine Nitrite (NEGATIVE) Urine Bilirubin (NEGATIVE) Urine Urobilinogen (0-1) mg/dL Ur Leukocyte Esterase (NEGATIVE) Urine WBC (Auto) (0-5) /HPF Urine RBC (Auto) (0-2) /HPF U Epithel Cells (Auto) (FEW) /HPF Urine Bacteria (Auto) (NEGATIVE) /HPF Urine Culture Reflexed (NO) Urine Glucose (NEGATIVE) mg/dL Influenza Type A Ag (NEGATIVE) Influenza Type B Ag (NEGATIVE) SARS-CoV-2 Ag (Rapid) (NEGATIVE) Slides for Path Review - Radiology Exams Ordered Rad Exams-Entire Visit: Radiology Procedures Category Date Time Status CHEST 1 VIEW (PORTABLE) Stat Exams 03/20/21 12:02 Completed CHEST WITH CONTRAST [CT] Stat Exams 03/20/21 14:38 Completed - Procedures and Test Procedures and Tests throughout Hospitalization: Therapy Orders & Screens 03/20/21 18:19 Respiratory Therapy Assessment DAILY Comment: Diagnosis: COPD EXACERBATION - Discharge Disposition: Home, Self-Care Condition: Stable Prescriptions: No Action No Reportable Medications [No Reported Medications] Follow up with: JONATHAN GOMEZ [Primary Care Provider] -
[2021-03-21] MEDS ORDERED: DELTASONE 20 MG PO SCH (10:00)
[2021-03-21] MEDS: ROCEPHIN 1 Gm-D5w 50 ml Bag** 1 G/50 ML IVPB IV SCH (10:13)
[2021-03-21] MEDS: TYLENOL EXTRA STRENGTH 500 MG PO PRN (10:26)
--- NOTE | 2021-03-21 10:58 | XRAY ---
Indication: Leg pain. Two-dimensional sonogram and color Doppler imaging of the major venous vessels of the left and right leg performed. Comparison: None No thrombus seen in the examined deep venous vessels of the left and right leg including greater saphenous vein. Veins demonstrate normal compressibility. Venous waveforms are normal with and without augmentation. Impression: Left and right legs negative for DVT.
--- NOTE | 2021-03-21 11:00 | XRAY ---
Indication: Leg pain. Two-dimensional sonogram and color Doppler imaging of the major arteries vessels of the left and right leg performed. Comparison: None Examination of the left leg demonstrates widely patent common femoral, deep femoral, superficial femoral, popliteal, posterior tibial, and dorsal pedal arteries. Arterial waveforms are multiphasic throughout the left leg. Left arm brachial pressure is 131. Left ankle pressure is 151. Ankle brachial index is 1.15, normal. Examination of the right leg demonstrates widely patent common femoral, deep femoral, superficial femoral, popliteal, posterior tibial, and dorsal pedal arteries. Arterial waveforms are multiphasic throughout the right leg. Right arm brachial pressure is 130. Right ankle pressure is 140. Ankle brachial index is 1.07, normal. Impression: Left and right leg arterial sonogram negative for critical stenosis/objection. Left and right ABIs are normal.
[2021-03-21 11:56] VITALS: PULSE 66
[2021-03-21 16:37] VITALS: BP 146/65; O2SAT 90
== END 2021-03-21 16:30 | disposition home or self-care (01) ==
LOC: ED 11:33 → MED SURG 17:15
PROVIDERS: ADMIT Family Medicine; ATTEND Family Medicine
DX: R07.89 Other chest pain (principal); J44.9 Chronic obstructive pulmonary disease, unspecified; D64.9 Anemia, unspecified; D72.819 Decreased white blood cell count, unspecified; M79.605 Pain in left leg; M79.604 Pain in right leg; Z72.0 Tobacco use; I25.10 Atherosclerotic heart disease of native coronary artery without angina pectoris; Z89.9 Acquired absence of limb, unspecified
CPT/HCPCS: 36000; 36415; 71045; 71260; 80053; 81001; 82150; 83605; 83690; 83735; 83880; 84145; 84484; 85025; 85027; 85379; 85610; 87040; 87400; 93005; 93041; 93268; 93925; 93970; 94760; 99000; 99285; G0378; J0696; J2930; A9270-GY

== ENCOUNTER 2021-05-06 08:54 | Observation (INO) | payer MEDICARE, SELFPAY ==
[2021-05-06] MEDS ORDERED: BABY ASPIRIN 81 MG CHEW PO ONE (09:05)
[2021-05-06] MEDS ORDERED: BABY ASPIRIN 81 MG CHEW ONE (09:12)
--- NOTE | 2021-05-06 09:32 | ERPHSYRPT ---
- History of Present Illness Historian: patient Exam Limitations: no limitations Patient Subjective Stated Complaint: pt c/o of burning in his left chest that began night which is causing some SOB, pain in his head and pain in his left arm and has some nausea Triage Nursing Assessment: Pt brought to the ER by his , hypertensive, rates the burning in his chest as 9/10, denies vomiting but feels nauseous, pulses normal, skin n/w/d, denies any diaphoresis, doesn't appear to be in any distress Physician History: 70 yo wm w L sub-sternal chest burning since 00:00 w radiation to L olecranon/neck accompanied by dyspnea/Nausea wo vomiting/diaphoresis. He denies h/o CAD/TX/HTN/DM/hyperlipidemia but does smoke 1/2 ppd. Pain rated 8/10 on scale. Timing/Duration: other (00:00) Activities at Onset: sleep Quality: burning Location: substernal (L sub-sternal) Chest Pain Radiation: neck, arm Severity of Pain-Max: severe Severity of Pain-Current: severe Modifying Factors: Improves With: nothing Associated Symptoms: nausea, shortness of breath, No vomiting, No palpitations, No heartburn, No abdominal pain, No cough, No hurts to breathe, No diaphoresis, No chills, No fever, No fatigue, No weakness, No swelling/lump in chest, No syncope, No rash, No headache, No dizziness, No edema, No back pain Prior Chest Pain/Cardiac Workup: no prior chest pain Nitro Today/Relief: no nitro taken today Aspirin Treatment Today: 81 mg x 4, provided by ED Allergies/Adverse Reactions: No Known Drug Allergies Allergy (Verified 05/06/21 09:07) Home Medications: Finasteride 5 mg [Proscar 5 MG] 5 mg PO DAILY 05/06/21 [History] Hx Tetanus, Diphtheria Vaccination/Date Given: Yes Hx Influenza Vaccination/Date Given: No (2010) Hx Pneumococcal Vaccination/Date Given: No Travel Risk - International Travel Have you traveled outside of the country in past 3 weeks: No - Coronavirus Screening Are you exhibiting any of the following symptoms?: No - Vaccine Status Have you recieved a Covid-19 vaccination: No - Review of Systems Constitutional: No Symptoms Eyes: No Symptoms Ears, Nose, & Throat: No Symptoms Respiratory: No Symptoms, Dyspnea Cardiac: No Symptoms, Chest Pain Abdominal/Gastrointestinal: No Symptoms, Nausea Genitourinary Symptoms: No Symptoms Musculoskeletal: No Symptoms Skin: No Symptoms Neurological: No Symptoms Psychological: No Symptoms Endocrine: No Symptoms Hematologic/Lymphatic: No Symptoms, Easy Bruising - Past Medical History Pertinent Past Medical History: Yes Neurological History: No Pertinent History ENT History: Macular Degeneration Cardiac History: Other Respiratory History: No Pertinent History Endocrine Medical History: No Pertinent History Musculoskeletal History: Arthritis GI Medical History: Diverticulitis, Diverticulosis History: Other Psycho-Social History: No Pertinent History Male Reproductive Disorders: Prostate Problems Other Medical History: kidney stone, mitral valve prolapse, heart starting to enlarge possibly from a bleed, anemia - Past Surgical History Past Surgical History: Yes Neuro Surgical History: No Pertinent History Cardiac: No Pertinent History Respiratory: No Pertinent History Gastrointestinal: Bowel Surgery Genitourinary: No Pertinent History Musculoskeletal: Orthopedic Surgery Male Surgical History: No Pertinent History Other Surgical History: CYSTOSCOPY TO REMOVE KIDNEY STONE. RIGHT BELOW ELBOW AMPUTEE. RIGHT LEG SURGERY. portion of bowel and stomach removed - Social History Smoking Status: Current every day smoker How long have you smoked: 50 YEARS Exposure to second hand smoke: Yes Alcohol Use: Socially Drug Use: none Patient Lives Alone: No Significant Family History: no pertinent family hx - Nursing Vital Signs Nursing Vital Signs: Initial Vital Signs Temperature 98.0 F 05/06/21 08:56 Pulse Rate 60 05/06/21 08:56 Respiratory Rate 18 05/06/21 08:56 Blood Pressure 178/109 05/06/21 08:56 O2 Sat by Pulse Oximetry 99 05/06/21 08:56 Pain Scale Pain Intensity 0 Hypertensive - Physical Exam General Appearance: no apparent distress Eye Exam: PERRL/EOMI, eyes nml inspection Ears, Nose, Throat Exam: normal ENT inspection, TMs normal, pharynx normal, moist mucous membranes Neck Exam: normal inspection, non-tender, supple, No full range of motion, No meningismus, No mass, No Brudzinski, No Kernig's Respiratory Exam: airway intact, rhonchi (Occ B but overall clear) Cardiovascular Exam: regular rate/rhythm, normal heart sounds, normal peripheral pulses Gastrointestinal/Abdomen Exam: soft, normal bowel sounds, No tenderness Back Exam: normal inspection, normal range of motion, No CVA tenderness, No vertebral tenderness Extremity Exam: normal inspection, normal range of motion Neurologic Exam: alert, oriented x 3, cooperative, equine intern II-XII nml as tested, normal mood/affect, nml cerebellar function, nml station & gait, sensation nml, No motor deficits, No sensory deficit Skin Exam: normal color, warm, dry Lymphatic Exam: No adenopathy SpO2 Interpretation: normal SpO2: 66 O2 Delivery: Room Air - Course Nursing assessment & vital signs reviewed: Yes EKG Interpreted by Me: RATE (NSR/R61/PVC's/Normal QT-QTc/RBBB/[place]/No acute ST segment changes/EKG#2 NSR/PAC's/PVC's/RBBB/[place]ornal QT-QTc) - Radiology Exams Chest X-ray Interpretation: Discussed w/ radiologist (Small R pleural effusion- thickening/Shrapnel/hyperinflation) Ordered Tests: Active Orders 24 hr Category Date Time Status EKG-ER Only STAT Care 05/06/21 08:59 Completed Heart-Healthy Diet Diet 05/06/21 Dinner Active CHEST 1 VIEW (PORTABLE) Stat Exams 05/06/21 09:00 Completed CBC W DIFF Stat Lab 05/06/21 09:15 Completed CMP Stat Lab 05/06/21 09:15 Completed LIPID PROFILE AM.LAB Lab 05/07/21 04:00 Ordered NT PRO BNP Stat Lab 05/06/21 09:15 Completed PROTIME WITH INR Stat Lab 05/06/21 09:15 Completed PTT Stat Lab 05/06/21 09:15 Completed TROPONIN Q3H Lab 05/06/21 09:15 Completed TROPONIN Q3H Lab 05/06/21 12:00 Completed TROPONIN Q3H Lab 05/06/21 14:30 Completed TROPONIN Q3H Lab 05/06/21 18:00 Ordered TROPONIN Q3H Lab 05/06/21 21:00 Ordered Transfer Order Routine Transfer 05/06/21 Completed Medication Summary Generic Name Dose Route Start Last Admin Trade Name Freq PRN Reason Stop Dose Admin Acetaminophen 650 mg 05/06/21 14:44 Acetaminophen 325 Mg Tablet PO 06/05/21 14:43 Q4H PRN PRN PAIN AND/OR FEVER Al Hydrox/Mg Hydrox/Simethicone 30 ml 05/06/21 14:44 Mag Hydrox/Al Hydrox/Simeth 30 Ml Udcup PO 06/05/21 14:43 Q4H PRN PRN INDIGESTION Aspirin 325 mg 05/07/21 10:00 Aspirin 325 Mg Tablet.Ec PO 06/06/21 09:59 DAILY [facility] Enoxaparin Sodium 40 mg 05/06/21 17:00 Enoxaparin Sodium 40 Mg/0.4 Ml Syringe SQ 06/05/21 16:59 DAILY [facility] Magnesium Hydroxide 30 - 60 ml 05/06/21 14:44 Magnesium Hydroxide 30 Ml Udcup PO 06/05/21 14:43 QDP PRN CONSTIPATION Nitroglycerin 0.4 mg 05/06/21 14:44 Nitroglycerin 0.4 Mg Tablet Bottle SL 06/05/21 14:43 .Q5MIN PRN CHEST PAIN Ondansetron HCl 4 mg 05/06/21 14:44 Ondansetron Hcl 4 Mg/2 Ml Vial IV 06/05/21 14:43 Q4H PRN PRN NAUSEA/VOMITING Senna/Docusate Sodium 2 udtab 05/06/21 14:44 Senna/Docusate Sodium 1 Udtab Tablet PO 06/05/21 14:43 BID PRN PRN CONSTIPATION Discontinued Medications Generic Name Dose Route Start Last Admin Trade Name Freq PRN Reason Stop Dose Admin Aspirin 324 mg 05/06/21 09:05 05/06/21 09:12 Aspirin 81 Mg Tab.Chew PO 05/06/21 09:06 324 mg STAT ONE Administration Aspirin Confirm 05/06/21 09:12 Aspirin 81 Mg Tab.Chew Administered 05/06/21 09:13 Dose 324 mg .ROUTE .STK-MED ONE Lisinopril 10 mg 05/06/21 14:49 05/06/21 14:59 Lisinopril 10 Mg Tablet PO 05/06/21 14:50 10 mg STAT STA Administration Metoprolol Tartrate 25 mg 05/06/21 22:00 Metoprolol Tartrate 25 Mg Tab PO 06/05/21 21:59 BID [facility] Nitroglycerin 0.4 mg 05/06/21 09:34 05/06/21 09:36 Nitroglycerin 0.4 Mg Tablet Bottle SL 06/05/21 09:33 0.4 mg PRN PRN Administration CHEST PAIN Lab/Rad Data: Laboratory Result Diagrams 05/06/21 09:15 05/06/21 09:15 Laboratory Results 05/06/21 05/06/21 05/06/21 Range/Units 14:44 14:30 12:00 WBC (4.0-10.5) K/mm3 RBC (4.1-5.6) M/mm3 Hgb (12.5-18.0) gm/dl Hct (42-50) % MCV (78-100) fl MCH (26-32) pg MCHC (32-36) g/dl Plt Count (150-450) K/mm3 MPV (7.5-11.0) fl Gran % (36.0-66.0) % Eos # (Auto) (0-0.5) Absolute Lymphs (auto) (1.0-4.6) Absolute Monos (auto) (0.0-1.3) Lymphocytes % (24.0-44.0) % Monocytes % (0.0-12.0) % Eosinophils % (0.00-5.0) % Basophils % (0.0-0.4) % Absolute Granulocytes (1.4-6.9) Basophils # (0-0.4) PT (9.4-12.5) SECONDS INR (0.8-3.0) APTT (25.1-36.5) SECONDS Sodium (137-145) mmol/L Potassium (3.5-5.1) mmol/L Chloride (98-107) mmol/L Carbon Dioxide (22-30) mmol/L Anion Gap (5-15) MEQ/L BUN (9-20) mg/dL Creatinine (0.66-1.25) mg/dL Estimated GFR ML/MIN Glucose (74-106) mg/dL Calcium (8.4-10.2) mg/dL Total Bilirubin (0.2-1.3) mg/dL AST (17-59) U/L ALT (0-50) U/L Alkaline Phosphatase (38-126) U/L Troponin I < 0.012 < 0.012 (0.000-0.034) ng/mL NT-Pro-B Natriuret Pep (0-900) pg/mL Serum Total Protein (6.3-8.2) g/dL Albumin (3.5-5.0) g/dL Influenza Type A Ag NEGATIVE (NEGATIVE) Influenza Type B Ag NEGATIVE (NEGATIVE) RSV (PCR) NEGATIVE (Negative) SARS-CoV-2 (PCR) NEGATIVE (NEGATIVE) Slides for Path Review 05/06/21 05/06/21 05/06/21 Range/Units 09:15 09:15 09:15 WBC (4.0-10.5) K/mm3 RBC (4.1-5.6) M/mm3 Hgb (12.5-18.0) gm/dl Hct (42-50) % MCV (78-100) fl MCH (26-32) pg MCHC (32-36) g/dl Plt Count (150-450) K/mm3 MPV (7.5-11.0) fl Gran % (36.0-66.0) % Eos # (Auto) (0-0.5) Absolute Lymphs (auto) (1.0-4.6) Absolute Monos (auto) (0.0-1.3) Lymphocytes % (24.0-44.0) % Monocytes % (0.0-12.0) % Eosinophils % (0.00-5.0) % Basophils % (0.0-0.4) % Absolute Granulocytes (1.4-6.9) Basophils # (0-0.4) PT 13.3 H (9.4-12.5) SECONDS INR 1.13 (0.8-3.0) APTT 34.6 (25.1-36.5) SECONDS Sodium 142 (137-145) mmol/L Potassium 4.1 (3.5-5.1) mmol/L Chloride 108 H (98-107) mmol/L Carbon Dioxide 28 (22-30) mmol/L Anion Gap 9.9 (5-15) MEQ/L BUN 17 (9-20) mg/dL Creatinine 0.74 (0.66-1.25) mg/dL Estimated GFR > 60.0 ML/MIN Glucose 88 (74-106) mg/dL Calcium 8.9 (8.4-10.2) mg/dL Total Bilirubin 0.60 (0.2-1.3) mg/dL AST 26 (17-59) U/L ALT 24 (0-50) U/L Alkaline Phosphatase 58 (38-126) U/L Troponin I < 0.012 (0.000-0.034) ng/mL NT-Pro-B Natriuret Pep 260 (0-900) pg/mL Serum Total Protein 6.8 (6.3-8.2) g/dL Albumin 4.1 (3.5-5.0) g/dL Influenza Type A Ag (NEGATIVE) Influenza Type B Ag (NEGATIVE) RSV (PCR) (Negative) SARS-CoV-2 (PCR) (NEGATIVE) Slides for Path Review 05/06/21 Range/Units 09:15 WBC 3.4 L (4.0-10.5) K/mm3 RBC 5.15 (4.1-5.6) M/mm3 Hgb 12.5 (12.5-18.0) gm/dl Hct 41.4 L (42-50) % MCV 80.4 (78-100) fl MCH 24.3 L (26-32) pg MCHC 30.2 L (32-36) g/dl Plt Count 131 L (150-450) K/mm3 MPV 9.9 (7.5-11.0) fl Gran % 67.3 H (36.0-66.0) % Eos # (Auto) 0.07 (0-0.5) Absolute Lymphs (auto) 0.68 L (1.0-4.6) Absolute Monos (auto) 0.34 (0.0-1.3) Lymphocytes % 20.2 L (24.0-44.0) % Monocytes % 10.1 (0.0-12.0) % Eosinophils % 2.1 (0.00-5.0) % Basophils % 0.3 (0.0-0.4) % Absolute Granulocytes 2.27 (1.4-6.9) Basophils # 0.01 (0-0.4) PT (9.4-12.5) SECONDS INR (0.8-3.0) APTT (25.1-36.5) SECONDS Sodium (137-145) mmol/L Potassium (3.5-5.1) mmol/L Chloride (98-107) mmol/L Carbon Dioxide (22-30) mmol/L Anion Gap (5-15) MEQ/L BUN (9-20) mg/dL Creatinine (0.66-1.25) mg/dL Estimated GFR ML/MIN Glucose (74-106) mg/dL Calcium (8.4-10.2) mg/dL Total Bilirubin (0.2-1.3) mg/dL AST (17-59) U/L ALT (0-50) U/L Alkaline Phosphatase (38-126) U/L Troponin I (0.000-0.034) ng/mL NT-Pro-B Natriuret Pep (0-900) pg/mL Serum Total Protein (6.3-8.2) g/dL Albumin (3.5-5.0) g/dL Influenza Type A Ag (NEGATIVE) Influenza Type B Ag (NEGATIVE) RSV (PCR) (Negative) SARS-CoV-2 (PCR) (NEGATIVE) Slides for Path Review YES - Progress Progress: improved Progress Note: 05/06/21 17:20 325mg ASA po SL NTG x 1 w improvement in pain/blood pressure Admit per Dr. Larson Discussed with : Chandan Counseled pt/family regarding: lab results, diagnosis, need for follow-up, rad results - Departure Departure Disposition: Observation Clinical Impression: Chest pain Condition: Stable Critical Care Time: No
[2021-05-06 09:33] LABS: INR 1.13 (0.8-3.0); PROTIME 13.3 SECONDS (9.4-12.5)
--- NOTE | 2021-05-06 09:33 | XRAY ---
Indication: Chest pain. Short of breath. Comparison: March 20, 2021. Portable chest unchanged again hyperinflated with mild right base pleural effusion/thickening, old granulomatous disease, and numerous right chest/abdomen radiopaque foreign bodies. Heart not enlarged. Bony thorax intact. No new/acute findings.
[2021-05-06] MEDS ORDERED: Nitrostat 0.4 MG Tablet SL PRN ×2 (09:34→14:44)
[2021-05-06 09:36] LABS: PTT 34.6 SECONDS (25.1-36.5)
[2021-05-06 09:46] LABS: ALBUMIN 4.1 g/dL (3.5-5.0); ALKALINE PHOSPHATASE 58 U/L (38-126); ANION GAP 9.9 MEQ/L (5-15); BLOOD UREA NITROGEN 17 mg/dL (9-20); CHLORIDE 108 mmol/L (98-107); Calcium 8.9 mg/dL (8.4-10.2); Carbon Dioxide 28 mmol/L (22-30); Creatinine 1 0.74 mg/dL (0.66-1.25); EST GLOMERULAR FILTRATION RATE > 60.0 ML/MIN; Glucose 88 mg/dL (74-106); NT PRO BNP 260 pg/mL (0-900); Potassium 4.1 mmol/L (3.5-5.1); SGOT/AST 26 U/L (17-59); SGPT/ALT 24 U/L (0-50); SODIUM 142 mmol/L (137-145); Total Protein 6.8 g/dL (6.3-8.2)
[2021-05-06 09:53] LABS: Absolute Neutrophil Ct (ANC) 2.27 (1.4-6.9); Basophil (Absolute #) 0.01 (0-0.4); Eosinophil % 2.1 % (0.00-5.0); Eosinophil (Absolute #) 0.07 (0-0.5); Hematocrit 41.4 % (42-50); Hemoglobin 12.5 gm/dl (12.5-18.0); Lymphocyte (Absolute #) 0.68 (1.0-4.6); Lymphocytes % 20.2 % (24.0-44.0); Mean Cell Volume 80.4 fl (78-100); Mean Corpuscular Hemoglobin 24.3 pg (26-32); Mean Corpuscular Hgb Concent. 30.2 g/dl (32-36); Mean Platelet Volume 9.9 fl (7.5-11.0); Monocyte (Absolute #) 0.34 (0.0-1.3); Monocytes % 10.1 % (0.0-12.0); Neutrophil % 67.3 % (36.0-66.0); Platelet Count 131 K/mm3 (150-450); Red Blood Count 5.15 M/mm3 (4.1-5.6); White Blood Count 3.4 K/mm3 (4.0-10.5)
[2021-05-06 10:31] LABS: Slide Review 1 YES
[2021-05-06] MEDS ORDERED: MILK OF MAGNESIA 30 ML PO PRN (14:44)
[2021-05-06] MEDS ORDERED: MAALOX ES 30 ML UNIT DOSE PO PRN (14:44)
[2021-05-06] MEDS ORDERED: Senokot-S Tablet PO PRN (14:44)
[2021-05-06] MEDS ORDERED: Zofran 4 MG/2 ML VIAL IV PRN (14:44)
[2021-05-06] MEDS ORDERED: Zestril 10 MG PO STA (14:49)
[2021-05-06 15:41] LABS: INFLUENZA A NEGATIVE (NEGATIVE); INFLUENZA B NEGATIVE (NEGATIVE); RESPIRATORY SYNCTIAL VIRUS NEGATIVE (Negative); SARS-CoV-2 Xpert Express NEGATIVE (NEGATIVE)
[2021-05-06] MEDS: ENOXAPARIN SODIUM SQ SCH (17:33)
[2021-05-06] MEDS: TYLENOL 325 MG PO PRN (17:33)
[2021-05-06] MEDS: Proscar 5 MG PO SCH (18:58)
[2021-05-06] MEDS ORDERED: Lopressor 25MG Tab PO SCH (22:00)
[2021-05-07] MEDS: TYLENOL 325 MG PO PRN ×2 (01:41→07:48)
[2021-05-07 06:47] LABS: Risk Ratio 3.3
[2021-05-07] MEDS ORDERED: Ecotrin 325 MG PO SCH (10:00)
[2021-05-07] MEDS ORDERED: Robaxin 500 MG PO PRN (10:43)
[2021-05-07] MEDS: Proscar 5 MG PO SCH (11:04)
[2021-05-07] MEDS: ENOXAPARIN SODIUM SQ SCH (11:06)
[2021-05-07 12:15] VITALS: BP 141/76; O2SAT 96
[2021-05-07] MEDS: PROVENTIL 2.5 MG/3 ML NEB IH SCH ×2 (12:48→12:51)
[2021-05-07 12:56] VITALS: PULSE 66
--- NOTE | 2021-05-07 15:01 | PCM.DCORD ---
- Discharge Disposition: Home, Self-Care Condition: Good Prescriptions: New Methocarbamol 500 mg [Robaxin 500 MG] 500 mg PO QHS #30 tablet No Action Finasteride 5 mg [Proscar 5 MG] 5 mg PO DAILY Additional Instructions: discuss Cardiology referral with Dr Soni Follow up with: LISHA WELLS [CONSULTING PHYSICIAN] - JONATHAN GOMEZ [Primary Care Provider] -
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
[2021-05-07 15:37] LABS: AMYLASE 84 U/L (30-110); LIPASE 63 U/L (23-300)
--- NOTE | 2021-05-07 20:08 | XRAY ---
Indication: Headache. No known injury. Comparison: None 3 view cervical spine demonstrates mild osteopenia, mild lordotic reversal centered at C3, and mild C3-C7 degenerative disc disease. No other bony, articular, or soft tissue abnormalities. Comment: Preliminary interpretation made by C. No critical discrepancy.
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
== END 2021-05-07 15:24 | disposition home or self-care (01) ==
LOC: ED 08:54 → MED SURG 16:25
PROVIDERS: ADMIT Family Medicine; ATTEND Family Medicine
DX: R07.9 Chest pain, unspecified (principal); R03.0 Elevated blood-pressure reading, without diagnosis of hypertension; J44.9 Chronic obstructive pulmonary disease, unspecified; M54.2 Cervicalgia; M47.812 Spondylosis without myelopathy or radiculopathy, cervical region; Z72.0 Tobacco use; Z79.899 Other long term (current) drug therapy; Z20.828 Contact with and (suspected) exposure to other viral communicable diseases
CPT/HCPCS: 0241U; 36415; 71045; 72040; 80053; 80061; 82150; 83690; 83721; 83880; 84484; 85025; 85610; 85730; 93005; 93268; 94640; 94760; 99285; G0378; J1650; J7609; A9270-GY

== ENCOUNTER 2021-07-09 01:26 | Emergency (ER) | payer MEDICARE ==
--- NOTE | 2021-07-09 01:51 | ERPHSYRPT ---
- History of Present Illness Time Seen by Provider: 07/09/21 01:50 Historian: patient Exam Limitations: no limitations Physician History: This is a 70-year-old white male who has a history of nephrolithiasis and ureterolithiasis in the past and 4 hours ago, he had sudden onset of right flank pain which radiated into his right lower quadrant and right groin area. The p ain is significant pain. He had associated nausea because of the pain. Patient denies chest pain. He denies shortness of breath. Timing/Duration: hour(s) (4) Activities at Onset: none Quality: aching, sharpness Abdominal Pain Onset Location: flank (Right flank) Pain Radiation: RLQ, groin (Right) Severity of Pain-Max: moderate Severity of Pain-Current: moderate Modifying Factors: Improves With: nothing Associated Symptoms: denies symptoms Previous symptoms: same symptoms as today, no recent treatment Allergies/Adverse Reactions: No Known Drug Allergies Allergy (Verified 07/09/21 02:43) Home Medications: Finasteride 5 mg [Proscar 5 MG] 5 mg PO DAILY 05/06/21 [History] Hx Tetanus, Diphtheria Vaccination/Date Given: Yes Hx Influenza Vaccination/Date Given: No (2010) Hx Pneumococcal Vaccination/Date Given: No Travel Risk - International Travel Have you traveled outside of the country in past 3 weeks: No - Coronavirus Screening Are you exhibiting any of the following symptoms?: No Close contact with a COVID-19 positive Pt in past 14-21 Days: No - Vaccine Status Have you recieved a Covid-19 vaccination: No - Review of Systems Constitutional: No Symptoms Eyes: No Symptoms Ears, Nose, & Throat: No Symptoms Respiratory: No Symptoms Cardiac: No Symptoms Genitourinary Symptoms: Flank Pain (Right flank) Musculoskeletal: No Symptoms Skin: No Symptoms Neurological: No Symptoms Psychological: No Symptoms Endocrine: No Symptoms Hematologic/Lymphatic: No Symptoms Immunological/Allergic: No Symptoms All Other Systems: Reviewed and Negative - Past Medical History Pertinent Past Medical History: Yes Neurological History: No Pertinent History ENT History: Macular Degeneration Cardiac History: Other Respiratory History: No Pertinent History Endocrine Medical History: No Pertinent History Musculoskeletal History: Arthritis GI Medical History: Diverticulitis, Diverticulosis History: Other Psycho-Social History: No Pertinent History Male Reproductive Disorders: Prostate Problems Other Medical History: kidney stone, mitral valve prolapse, heart starting to enlarge possibly from a bleed, anemia - Past Surgical History Past Surgical History: Yes Neuro Surgical History: No Pertinent History Cardiac: No Pertinent History Respiratory: No Pertinent History Gastrointestinal: Bowel Surgery Genitourinary: No Pertinent History Musculoskeletal: Orthopedic Surgery Male Surgical History: No Pertinent History Other Surgical History: CYSTOSCOPY TO REMOVE KIDNEY STONE. RIGHT BELOW ELBOW AMPUTEE. RIGHT LEG SURGERY. portion of bowel and stomach removed - Social History Smoking Status: Current every day smoker How long have you smoked: 50 YEARS Exposure to second hand smoke: Yes Alcohol Use: Socially Drug Use: none Patient Lives Alone: No Significant Family History: no pertinent family hx - Nursing Vital Signs Nursing Vital Signs: Initial Vital Signs Temperature 97.3 F 07/09/21 02:44 Pulse Rate 62 07/09/21 02:44 Respiratory Rate 16 07/09/21 02:44 Blood Pressure 167/97 07/09/21 02:44 O2 Sat by Pulse Oximetry 95 07/09/21 02:44 Pain Scale Pain Intensity 5 - Physical Exam General Appearance: no apparent distress, alert, anxiety, thin Eye Exam: PERRL/EOMI, eyes nml inspection Ears, Nose, Throat Exam: normal ENT inspection, moist mucous membranes Neck Exam: normal inspection, non-tender, supple, full range of motion Respiratory Exam: normal breath sounds, lungs clear, airway intact, No chest tenderness, No respiratory distress Cardiovascular Exam: regular rate/rhythm, normal heart sounds, normal peripheral pulses Gastrointestinal/Abdomen Exam: soft, normal bowel sounds, No tenderness Back Exam: normal inspection, normal range of motion, CVA tenderness (Right), No vertebral tenderness Extremity Exam: normal inspection, normal range of motion, pelvis stable Neurologic Exam: alert, oriented x 3, cooperative, smog technician II-XII nml as tested, normal mood/affect, nml cerebellar function, nml station & gait, sensation nml Skin Exam: normal color, warm, dry Lymphatic Exam: No adenopathy SpO2 Interpretation: normal O2 Delivery: Room Air - Course Nursing assessment & vital signs reviewed: Yes Ordered Tests: Active Orders 24 hr Category Date Time Status IV Insertion STAT Care 07/09/21 02:57 Active ABDOMEN AND PELVIS W/0 CONTRAS [CT] Stat Exams 07/09/21 02:58 Taken AMYLASE Stat Lab 07/09/21 03:10 Completed CBC W DIFF Stat Lab 07/09/21 03:10 Completed CMP Stat Lab 07/09/21 03:10 Completed CULTURE,URINE Stat Lab 07/09/21 03:10 Received LIPASE Stat Lab 07/09/21 03:10 Completed Lactic Acid Stat Lab 07/09/21 03:05 Completed UA W/RFX CULTURE Stat Lab 07/09/21 03:10 Completed Medication Summary Discontinued Medications Generic Name Dose Route Start Last Admin Trade Name Freq PRN Reason Stop Dose Admin Hydromorphone HCl 1 mg 07/09/21 02:57 07/09/21 04:08 Hydromorphone 1 Mg/1ml Inj 1 Mg/Ml Syringe IV 07/09/21 02:58 1 mg STAT ONE Administration Hydromorphone HCl Confirm 07/09/21 04:03 Hydromorphone 1 Mg/1ml Inj 1 Mg/Ml Syringe Administered 07/09/21 04:04 Dose 1 mg .ROUTE .STK-MED ONE Sodium Chloride 1,000 mls @ 999 mls/hr 07/09/21 02:57 07/09/21 05:18 Sodium Chloride 0.9% 1000 Ml IV 07/09/21 03:57 Infused .Q1H1M STA Infusion Sodium Chloride Confirm 07/09/21 04:03 Sodium Chloride 0.9% 1000 Ml Administered 07/09/21 04:04 Dose 1,000 mls @ ud .ROUTE .STK-MED ONE Ondansetron HCl 4 mg 07/09/21 02:57 07/09/21 04:05 Ondansetron Hcl 4 Mg/2 Ml Vial IV 07/09/21 02:58 4 mg STAT ONE Administration Ondansetron HCl Confirm 07/09/21 04:03 Ondansetron Hcl 4 Mg/2 Ml Vial Administered 07/09/21 04:04 Dose 4 mg .ROUTE .STK-MED ONE Lab/Rad Data: Laboratory Result Diagrams 07/09/21 03:10 07/09/21 03:10 Laboratory Results 07/09/21 07/09/21 07/09/21 Range/Units 03:10 03:10 03:10 WBC 4.1 (4.0-10.5) K/mm3 RBC 4.55 (4.1-5.6) M/mm3 Hgb 12.8 (12.5-18.0) gm/dl Hct 39.8 L (42-50) % MCV 87.5 (78-100) fl MCH 28.1 (26-32) pg MCHC 32.2 (32-36) g/dl RDW 18.2 H (11.5-14.0) % Plt Count 136 L (150-450) K/mm3 MPV 9.6 (7.5-11.0) fl Gran % 72.4 H (36.0-66.0) % Eos # (Auto) 0.07 (0-0.5) Absolute Lymphs (auto) 0.63 L (1.0-4.6) Absolute Monos (auto) 0.40 (0.0-1.3) Lymphocytes % 15.5 L (24.0-44.0) % Monocytes % 9.9 (0.0-12.0) % Eosinophils % 1.7 (0.00-5.0) % Basophils % 0.5 (0.0-0.4) % Absolute Granulocytes 2.94 (1.4-6.9) Basophils # 0.02 (0-0.4) Sodium 142 (137-145) mmol/L Potassium 4.2 (3.5-5.1) mmol/L Chloride 108 H (98-107) mmol/L Carbon Dioxide 30 (22-30) mmol/L Anion Gap 8.2 (5-15) MEQ/L BUN 29 H (9-20) mg/dL Creatinine 0.93 (0.66-1.25) mg/dL Estimated GFR > 60.0 ML/MIN Glucose 114 H (74-106) mg/dL Lactic Acid (0.4-2.0) Calcium 9.1 (8.4-10.2) mg/dL Total Bilirubin 0.60 (0.2-1.3) mg/dL AST 32 (17-59) U/L ALT 23 (0-50) U/L Alkaline Phosphatase 57 (38-126) U/L Serum Total Protein 6.2 L (6.3-8.2) g/dL Albumin 3.8 (3.5-5.0) g/dL Amylase 86 (30-110) U/L Lipase 171 (23-300) U/L Urinalys Dipstick Clnc MAIN LAB Urine Color YELLOW (YELLOW) Urine Appearance SLIGHTLY CLOUDY (CLEAR) Urine pH 6.0 (5-6) Ur Specific [place] 1.025 (1.005-1.025) POC Urine Protein Conf NEGATIVE (Negative) Urine Ketones NEGATIVE (NEGATIVE) Urine Nitrite NEGATIVE (NEGATIVE) Urine Bilirubin NEGATIVE (NEGATIVE) Urine Urobilinogen 0.2 (0-1) mg/dL Urine Leukocytes NEGATIVE (NEGATIVE) Urine WBC (Auto) 11-15 (0-5) /HPF Urine RBC (Auto) >101 (0-2) /HPF U Hyaline Cast (Auto) 0-2 (0-2) /LPF U Epithel Cells (Auto) NONE (FEW) /HPF Urine Bacteria (Auto) NONE SEEN (NEGATIVE) /HPF Urine RBC LARGE (0-5) Juliocesar/ul Unidentified Crystals 25-50 (NEGATIVE) /HPF Urine Mucus (Auto) SLIGHT (NEGATIVE) /HPF Ur Culture Indicated? YES Urine Glucose NEGATIVE (NEGATIVE) mg/dL 07/09/21 Range/Units 03:05 WBC (4.0-10.5) K/mm3 RBC (4.1-5.6) M/mm3 Hgb (12.5-18.0) gm/dl Hct (42-50) % MCV (78-100) fl MCH (26-32) pg MCHC (32-36) g/dl RDW (11.5-14.0) % Plt Count (150-450) K/mm3 MPV (7.5-11.0) fl Gran % (36.0-66.0) % Eos # (Auto) (0-0.5) Absolute Lymphs (auto) (1.0-4.6) Absolute Monos (auto) (0.0-1.3) Lymphocytes % (24.0-44.0) % Monocytes % (0.0-12.0) % Eosinophils % (0.00-5.0) % Basophils % (0.0-0.4) % Absolute Granulocytes (1.4-6.9) Basophils # (0-0.4) Sodium (137-145) mmol/L Potassium (3.5-5.1) mmol/L Chloride (98-107) mmol/L Carbon Dioxide (22-30) mmol/L Anion Gap (5-15) MEQ/L BUN (9-20) mg/dL Creatinine (0.66-1.25) mg/dL Estimated GFR ML/MIN Glucose (74-106) mg/dL Lactic Acid 0.4 (0.4-2.0) Calcium (8.4-10.2) mg/dL Total Bilirubin (0.2-1.3) mg/dL AST (17-59) U/L ALT (0-50) U/L Alkaline Phosphatase (38-126) U/L Serum Total Protein (6.3-8.2) g/dL Albumin (3.5-5.0) g/dL Amylase (30-110) U/L Lipase (23-300) U/L Urinalys Dipstick Clnc Urine Color (YELLOW) Urine Appearance (CLEAR) Urine pH (5-6) Ur Specific [place] (1.005-1.025) POC Urine Protein Conf (Negative) Urine Ketones (NEGATIVE) Urine Nitrite (NEGATIVE) Urine Bilirubin (NEGATIVE) Urine Urobilinogen (0-1) mg/dL Urine Leukocytes (NEGATIVE) Urine WBC (Auto) (0-5) /HPF Urine RBC (Auto) (0-2) /HPF U Hyaline Cast (Auto) (0-2) /LPF U Epithel Cells (Auto) (FEW) /HPF Urine Bacteria (Auto) (NEGATIVE) /HPF Urine RBC (0-5) Juliocesar/ul Unidentified Crystals (NEGATIVE) /HPF Urine Mucus (Auto) (NEGATIVE) /HPF Ur Culture Indicated? Urine Glucose (NEGATIVE) mg/dL - Progress Progress: improved Progress Note: 07/09/21 05:20 CAT scan of the abdomen and pelvis shows bilateral renal hydronephrosis that is mild. There is a right ureterovesicular stone that measures 2.6 mm in size Counseled pt/family regarding: lab results, diagnosis, need for follow-up, rad results - Departure Departure Disposition: Home Clinical Impression: Ureterolithiasis Condition: Stable Critical Care Time: No Referrals: JONATHAN GOMEZ [Primary Care Provider] - Follow up/PCP as directed Additional Instructions: Drink plenty fluids. Use Tylenol and ibuprofen for pain control. Follow-up with urologist if symptoms persist. Return to the emergency department if symptoms worsen.
[2021-07-09] MEDS ORDERED: Hydromorphone 1 mg/ml Injection IV ONE (02:57)
[2021-07-09] MEDS ORDERED: Zofran 4 MG/2 ML VIAL IV ONE (02:57)
[2021-07-09] MEDS ORDERED: Sodium Chloride 0.9% 1000 ML 1,000 ML IV STA (02:57)
[2021-07-09 03:14] LABS: Absolute Neutrophil Ct (ANC) 2.94 (1.4-6.9); Basophil (Absolute #) 0.02 (0-0.4); Eosinophil % 1.7 % (0.00-5.0); Eosinophil (Absolute #) 0.07 (0-0.5); Hematocrit 39.8 % (42-50); Hemoglobin 12.8 gm/dl (12.5-18.0); Lymphocyte (Absolute #) 0.63 (1.0-4.6); Lymphocytes % 15.5 % (24.0-44.0); Mean Cell Volume 87.5 fl (78-100); Mean Corpuscular Hemoglobin 28.1 pg (26-32); Mean Corpuscular Hgb Concent. 32.2 g/dl (32-36); Mean Platelet Volume 9.6 fl (7.5-11.0); Monocytes % 9.9 % (0.0-12.0); Neutrophil % 72.4 % (36.0-66.0); Platelet Count 136 K/mm3 (150-450); Red Blood Count 4.55 M/mm3 (4.1-5.6); Red Cell Distribution Width 18.2 % (11.5-14.0); White Blood Count 4.1 K/mm3 (4.0-10.5)
[2021-07-09 03:31] LABS: Crystals Unidentified 25-50 /HPF (NEGATIVE); Hyaline Casts 0-2 /LPF (0-2); Mucus SLIGHT /HPF (NEGATIVE)
[2021-07-09 03:32] LABS: ALBUMIN 3.8 g/dL (3.5-5.0); ALKALINE PHOSPHATASE 57 U/L (38-126); AMYLASE 86 U/L (30-110); ANION GAP 8.2 MEQ/L (5-15); Appearance SLIGHTLY CLOUDY (CLEAR); BLOOD UREA NITROGEN 29 mg/dL (9-20); Bilirubin NEGATIVE (NEGATIVE); CHLORIDE 108 mmol/L (98-107); Calcium 9.1 mg/dL (8.4-10.2); Carbon Dioxide 30 mmol/L (22-30); Creatinine 1 0.93 mg/dL (0.66-1.25); EST GLOMERULAR FILTRATION RATE > 60.0 ML/MIN; Glucose 114 mg/dL (74-106); Glucose NEGATIVE (NEGATIVE); Ketones NEGATIVE (NEGATIVE); LIPASE 171 U/L (23-300); Potassium 4.2 mmol/L (3.5-5.1); RBC LARGE Ery/ul (0-5); SGOT/AST 32 U/L (17-59); SGPT/ALT 23 U/L (0-50); SODIUM 142 mmol/L (137-145); Specific Gravity 1.025 (1.005-1.025); Total Protein 6.2 g/dL (6.3-8.2)
[2021-07-09 03:33] LABS: Dipstick done @ ? MAIN LAB; Nitrite NEGATIVE (NEGATIVE); Protein,Urine Dip NEGATIVE (Negative); Urobilinogen 0.2 mg/dL (0-1)
[2021-07-09 03:34] LABS: Bacteria NONE SEEN /HPF (NEGATIVE); RBC >101 /HPF (0-2); Urine Cultured Indicated? YES
[2021-07-09] MEDS ORDERED: Sodium Chloride 0.9% 1000 ML 1,000 ML ONE (04:03)
[2021-07-09] MEDS ORDERED: Zofran 4 MG/2 ML VIAL ONE (04:03)
[2021-07-09] MEDS ORDERED: Hydromorphone 1 mg/ml Injection ONE (04:03)
[2021-07-09] MEDS ORDERED: TORAdol 30 mg Injection IV ONE (05:21)
[2021-07-09] MEDS ORDERED: Sodium Chloride 0.9% 500 ML 500 ML IV ONE ×2 (05:21→05:24)
[2021-07-09] MEDS ORDERED: TORAdol 30 mg Injection ONE (05:24)
[2021-07-09 06:37] VITALS: BP 136/66; PULSE 64; O2SAT 97
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
== END 2021-07-09 06:40 | disposition home or self-care (01) ==
LOC: ED 01:26
DX: N13.2 Hydronephrosis with renal and ureteral calculous obstruction (principal); Z87.442 Personal history of urinary calculi; R10.31 Right lower quadrant pain; R11.0 Nausea; Z79.899 Other long term (current) drug therapy
CPT/HCPCS: 36000; 36415; 74176; 80053; 81015; 82150; 83605; 83690; 85025; 87086; 96360; 96361; 96374; 96375; 99284; J1170; J1885; J2405

== ENCOUNTER 2021-07-11 00:51 | Emergency (ER) | payer MEDICARE ==
[2021-07-11 01:16] VITALS: BP 167/97
[2021-07-11] MEDS ORDERED: TORAdol 30 mg Injection IM ONE (01:31)
[2021-07-11] MEDS ORDERED: Hydromorphone 1 mg/ml Injection IM ONE (01:31)
--- NOTE | 2021-07-11 01:31 | ERPHSYRPT ---
- History of Present Illness Time Seen by Provider: 07/11/21 01:20 Historian: patient Exam Limitations: no limitations Patient Subjective Stated Complaint: pt states he was diagnosed with a kidney stone and has been having increased pain on his rt side since. Triage Nursing Assessment: pt alert and oriented, answers questions approp. pt ambulatory with steady gait noted. respirations nonlabored. skin warm and dry. bowel sounds x4 quads wnl. Physician History: This is a 70-year-old white male who I saw approximately his ago who was diagnosed with a right ureterovesical stone measuring approximately 2-1/2 to 3 mm with mild bilateral hydronephrosis. There is also presence of bilateral renal stones. Patient was discharged to home with good pain relief. There is no evidence of any urinary tract infection. However the next day he began to have increased pain and he received a prescription of [place] by his primary care physician. Late this past evening his pain increased and he could not find pain relief so he read presented to the emergency department. Timing/Duration: yesterday, worse Abdominal Pain Onset Location: RLQ, flank (Right flank) Pain Radiation: flank (Right flank) Severity of Pain-Max: moderate Severity of Pain-Current: moderate Modifying Factors: Improves With: nothing Associated Symptoms: denies symptoms Previous symptoms: same symptoms as today, recently seen, recently treated Allergies/Adverse Reactions: No Known Drug Allergies Allergy (Verified 07/11/21 01:16) Home Medications: Finasteride 5 mg [Proscar 5 MG] 5 mg PO DAILY 05/06/21 [History] Hx Tetanus, Diphtheria Vaccination/Date Given: Yes Hx Influenza Vaccination/Date Given: No Hx Pneumococcal Vaccination/Date Given: No Immunizations Up to Date: Yes Travel Risk - International Travel Have you traveled outside of the country in past 3 weeks: No - Coronavirus Screening Are you exhibiting any of the following symptoms?: No Close contact with a COVID-19 positive Pt in past 14-21 Days: No - Vaccine Status Have you recieved a Covid-19 vaccination: No - Review of Systems Constitutional: No Symptoms Eyes: No Symptoms Ears, Nose, & Throat: No Symptoms Respiratory: No Symptoms Cardiac: No Symptoms Abdominal/Gastrointestinal: Abdominal Pain (Lower quadrant to right flank pain) Genitourinary Symptoms: Flank Pain (Right) Musculoskeletal: No Symptoms Skin: No Symptoms Neurological: No Symptoms Psychological: No Symptoms Endocrine: No Symptoms Hematologic/Lymphatic: No Symptoms Immunological/Allergic: No Symptoms - Past Medical History Pertinent Past Medical History: Yes Neurological History: No Pertinent History ENT History: Macular Degeneration Cardiac History: Other Respiratory History: No Pertinent History Endocrine Medical History: No Pertinent History Musculoskeletal History: Arthritis GI Medical History: Diverticulitis, Diverticulosis History: Other Psycho-Social History: No Pertinent History Male Reproductive Disorders: Prostate Problems Other Medical History: kidney stone, mitral valve prolapse, heart starting to enlarge possibly from a bleed, anemia - Past Surgical History Past Surgical History: Yes Neuro Surgical History: No Pertinent History Cardiac: No Pertinent History Respiratory: No Pertinent History Gastrointestinal: Bowel Surgery Genitourinary: No Pertinent History Musculoskeletal: Orthopedic Surgery Male Surgical History: No Pertinent History Other Surgical History: CYSTOSCOPY TO REMOVE KIDNEY STONE. RIGHT BELOW ELBOW AMPUTEE. RIGHT LEG SURGERY. portion of bowel and stomach removed - Social History Smoking Status: Current every day smoker How long have you smoked: 50 YEARS Exposure to second hand smoke: Yes Alcohol Use: Socially Drug Use: none Patient Lives Alone: No Significant Family History: no pertinent family hx - Nursing Vital Signs Nursing Vital Signs: Initial Vital Signs Temperature 98.8 F 07/11/21 01:04 Pulse Rate 69 07/11/21 01:04 Respiratory Rate 16 07/11/21 01:04 Blood Pressure 167/97 07/11/21 01:04 O2 Sat by Pulse Oximetry 95 07/11/21 01:04 Pain Scale Pain Intensity 5 - Physical Exam General Appearance: mild distress, alert, anxiety, thin Eye Exam: PERRL/EOMI, eyes nml inspection Ears, Nose, Throat Exam: normal ENT inspection, moist mucous membranes Neck Exam: normal inspection, non-tender, supple, full range of motion Respiratory Exam: normal breath sounds, lungs clear, airway intact, No chest tenderness, No respiratory distress Cardiovascular Exam: regular rate/rhythm, normal heart sounds, normal peripheral pulses Gastrointestinal/Abdomen Exam: soft, normal bowel sounds, tenderness (Right lower quadrant) Rectal Exam: not done Back Exam: normal inspection, normal range of motion, CVA tenderness (Right side), No vertebral tenderness Neurologic Exam: alert, oriented x 3, cooperative, supervisor paper coating II-XII nml as tested, normal mood/affect, nml cerebellar function, nml station & gait, sensation nml Skin Exam: normal color, warm, dry Lymphatic Exam: No adenopathy SpO2 Interpretation: normal SpO2: 95 O2 Delivery: Room Air Ordered Tests: Active Orders 24 hr Category Date Time Status ABDOMEN AND PELVIS W/0 CONTRAS [CT] Stat Exams 07/11/21 01:32 Taken Medication Summary Discontinued Medications Generic Name Dose Route Start Last Admin Trade Name Merritt PRN Reason Stop Dose Admin Hydromorphone HCl 1 mg 07/11/21 01:31 07/11/21 01:42 Hydromorphone 1 Mg/1ml Inj 1 Mg/Ml Syringe IM 07/11/21 01:32 1 mg STAT ONE Administration Hydromorphone HCl Confirm 07/11/21 01:37 Hydromorphone 1 Mg/1ml Inj 1 Mg/Ml Syringe Administered 07/11/21 01:38 Dose 1 mg .ROUTE .STK-MED ONE Ketorolac Tromethamine 60 mg 07/11/21 01:31 07/11/21 01:40 Ketorolac Tromethamine 30 Mg/Ml Inj IM 07/11/21 01:32 60 mg STAT ONE Administration Ketorolac Tromethamine Confirm 07/11/21 01:37 Ketorolac Tromethamine 30 Mg/Ml Inj Administered 07/11/21 01:38 Dose 30 mg .ROUTE .STK-MED ONE Ketorolac Tromethamine Confirm 07/11/21 01:40 Ketorolac Tromethamine 30 Mg/Ml Inj Administered 07/11/21 01:41 Dose 30 mg .ROUTE .STK-MED ONE Ondansetron HCl 4 mg 07/11/21 01:32 07/11/21 01:42 Zofran 4 Mg/Udtablet Orally Disintegrating PO 07/11/21 01:33 4 mg STAT ONE Administration Ondansetron HCl Confirm 07/11/21 01:38 Zofran 4 Mg/Udtablet Orally Disintegrating Administered 07/11/21 01:39 Dose 4 mg .ROUTE .STK-MED ONE - Progress Progress: improved, pain not gone completely Progress Note: 07/11/21 02:55 CAT scan of the abdomen pelvis without contrast shows no significant change from a prior CAT scan of the abdomen pelvis. There is a 3 mm ureterovesical junction ureteral stone present. There is mild ureteral dilatation and mild hydronephrosis. There is no other acute intra-abdominal or intrapelvic findings. - Departure Departure Disposition: Home Clinical Impression: Ureteral stone with hydronephrosis Condition: Stable Critical Care Time: No Referrals: JONATHAN GOMEZ [Primary Care Provider] - Follow up/PCP as directed Additional Instructions: Drink plenty of fluids. Use ibuprofen and 600 mg orally with food 3 times a day. Call the urologist this morning (07/11/2021) to make arrangements for further evaluation and management. We will provide you with the phone number. You can continue your [place] and the Flomax as prescribed.
[2021-07-11] MEDS ORDERED: ZOFRAN ODT 4 MG PO ONE (01:32)
[2021-07-11] MEDS ORDERED: Hydromorphone 1 mg/ml Injection ONE (01:37)
[2021-07-11] MEDS ORDERED: TORAdol 30 mg Injection ONE ×2 (01:37→01:40)
[2021-07-11] MEDS ORDERED: ZOFRAN ODT 4 MG ONE (01:38)
[2021-07-11 02:35] VITALS: PULSE 64
[2021-07-11 02:57] VITALS: O2SAT 95
--- NOTE | 2021-07-11 09:05 | XRAY ---
Indication: Right flank and bilateral pelvic pain. Right UVJ calculus seen 2 days ago. Multiple contiguous images obtained through the abdomen and pelvis without contrast using renal stone protocol. Comparison: July 09, 2021. Lung bases again demonstrates pulmonary emphysema an tiny right base calcified granuloma. Heart not enlarged. Stable 3 mm right UVJ calculus with moderate hydronephrosis and hydroureter. No perinephric fluid. Also stable micro-calculus in each kidney and enlarged prostate gland. Noncontrasted stomach and bowel loops remain nonobstructed. Right abdomen again demonstrates multiple metallic shrapnel. No free fluid/air. Stable hepatic/splenic calcified granulomas. Remaining liver, gallbladder, pancreas, spleen, adrenal glands, kidneys, ureters, and bladder are unremarkable for noncontrast exam. Stable mild aortoiliac calcifications without AAA. Impression: 1. Stable 3 mm right UVJ calculus with obstructive uropathy and bilateral renal micro-calculi. 2. Again chronic findings including metallic shrapnel, enlarged prostate gland, and old granulomatous disease. Comment: Preliminary interpretation made by C. No critical discrepancy.
== END 2021-07-11 03:00 | disposition home or self-care (01) ==
LOC: ED 00:51
DX: N13.2 Hydronephrosis with renal and ureteral calculous obstruction (principal); Z87.442 Personal history of urinary calculi; Z72.0 Tobacco use; Z79.899 Other long term (current) drug therapy
CPT/HCPCS: 74176; 96372; 99284; J1170; J1885; Q0162

== ENCOUNTER 2021-11-07 00:31 | Emergency (ER) | payer MEDICARE ==
[2021-11-07 00:38] VITALS: O2SAT 95
[2021-11-07] MEDS ORDERED: solu-MEDROL 125 MG, Sterile H2O 10 ml 2 ML IV ONE ×2 (01:20)
[2021-11-07] MEDS ORDERED: Sterile H2O 10 ml IJ ONE (01:20)
[2021-11-07] MEDS ORDERED: solu-MEDROL ONE (01:20)
[2021-11-07] MEDS ORDERED: DUONEB 0.5-3 MG/3 ml Neb IH ONE ×2 (01:21→01:22)
[2021-11-07 01:24] LABS: Absolute Neutrophil Ct (ANC) 12.47 x10^3/uL (1.4-6.9); Basophil (Absolute #) 0.02 x10^3/uL (0-0.4); Eosinophil % 0.2 % (0.00-5.0); Eosinophil (Absolute #) 0.03 x10^3/uL (0-0.5); Hematocrit 33.7 % (42-50); Hemoglobin 10.5 g/dL (12.5-18.0); Lymphocyte (Absolute #) 0.52 x10^3/uL (1.0-4.6); Lymphocytes % 3.7 % (24.0-44.0); Mean Cell Volume 90.8 fL (78-100); Mean Corpuscular Hemoglobin 28.3 pg (26-32); Mean Corpuscular Hgb Concent. 31.2 g/dL (32-36); Mean Platelet Volume 10.1 fL (7.5-11.0); Monocyte (Absolute #) 0.96 x10^3/uL (0.0-1.3); Monocytes % 6.8 % (0.0-12.0); Neutrophil % 88.8 % (36.0-66.0); Platelet Count 207 x10^3/uL (150-450); Red Blood Count 3.71 x10^6/uL (4.1-5.6); Red Cell Distribution Width 13.1 % (11.5-14.0); White Blood Count 14.1 x10^3/uL (4.0-10.5)
--- NOTE | 2021-11-07 01:30 | ERPHSYRPT ---
- History of Present Illness Time Seen by Provider: 11/07/21 01:06 Source: patient Exam Limitations: no limitations Patient Subjective Stated Complaint: I have felt bad x2 weeks and not getting any better, cough, sob, chest congestion. Triage Nursing Assessment: pt ambulated into ER with his . Pt has been feeling bad x2 weeks and was seen in quick care and given doxyclycline and prednisone. Pt denies feeling any better. Pt has prod cough with thick white sputum, sob, chest congestion and headache. Lung mobley clear, no distress noted. Physician History: 70-year-old male with multiple medical problems including chronic anemia on iron infusions, COPD, tobacco abuse, mitral valve prolapse, hypertension presented in the ER with chief complaint of increasing shortness of breath for the last couple of weeks. Patient was seen at urgent care and has finished a course of steroid and doxycycline few days ago but for the last couple of days again having increasing symptoms. Patient reports cough productive of clear frothy takes sputum with pain on the right side of the chest because of repeated coughing. No fever or chills reported but has decreased/loss of taste and smell with loss of appetite, generalized weakness fatigue and tiredness. Patient states "I feel like crap". Patient is out of his inhalers. Timing/Duration: week(s) (2), gradual onset, worse Activities at Onset: activity, rest Severity of Dyspnea-Max: moderate Severity of Dyspnea-Current: moderate Possible Cause: frequent episodes Modifying Factors: Improves With: albuterol nebulizer. Worsens With: coughing, exertion Associated Symptoms: cough, chest pain/discomfort, edema, loss of appetite, wheezing, ankle swelling, productive cough, No heaviness, No heart racing, No lightheadedness Allergies/Adverse Reactions: No Known Drug Allergies Allergy (Verified 11/07/21 00:49) Hx Tetanus, Diphtheria Vaccination/Date Given: Yes Hx Influenza Vaccination/Date Given: No Hx Pneumococcal Vaccination/Date Given: No Immunizations Up to Date: Yes Travel Risk - International Travel Have you traveled outside of the country in past 3 weeks: No - Coronavirus Screening Symptoms: Cough: New Onset, Shortness of Breath, Headaches/Body Aches/Fatigue Close contact with a COVID-19 positive Pt in past 14-21 Days: No - Vaccine Status Have you recieved a Covid-19 vaccination: No - Review of Systems Constitutional: Fatigue, Weakness Eyes: No Symptoms Ears, Nose, & Throat: No Symptoms Respiratory: Cough, Dyspnea, Wheezing Cardiac: Edema Abdominal/Gastrointestinal: No Symptoms Genitourinary Symptoms: No Symptoms Musculoskeletal: No Symptoms Skin: No Symptoms Neurological: No Symptoms Psychological: No Symptoms Endocrine: No Symptoms Hematologic/Lymphatic: No Symptoms Immunological/Allergic: No Symptoms - Past Medical History Pertinent Past Medical History: Yes Neurological History: No Pertinent History ENT History: Macular Degeneration Cardiac History: Other Respiratory History: No Pertinent History Endocrine Medical History: No Pertinent History Musculoskeletal History: Arthritis GI Medical History: Diverticulitis, Diverticulosis History: Other Psycho-Social History: No Pertinent History Male Reproductive Disorders: Prostate Problems Other Medical History: kidney stone, mitral valve prolapse, heart starting to enlarge possibly from a bleed, anemia - Past Surgical History Past Surgical History: Yes Neuro Surgical History: No Pertinent History Cardiac: No Pertinent History Respiratory: No Pertinent History Gastrointestinal: Bowel Surgery Genitourinary: No Pertinent History Musculoskeletal: Orthopedic Surgery Male Surgical History: No Pertinent History Other Surgical History: CYSTOSCOPY TO REMOVE KIDNEY STONE. RIGHT BELOW ELBOW AMPUTEE. RIGHT LEG SURGERY. portion of bowel and stomach removed - Social History Smoking Status: Current every day smoker How long have you smoked: 50 yrs Exposure to second hand smoke: Yes Alcohol Use: Socially Drug Use: none Patient Lives Alone: No Significant Family History: no pertinent family hx - Nursing Vital Signs Nursing Vital Signs: Initial Vital Signs Temperature 98.4 F 11/07/21 00:32 Pulse Rate 78 11/07/21 00:32 Respiratory Rate 18 11/07/21 00:32 Blood Pressure 149/66 11/07/21 00:32 O2 Sat by Pulse Oximetry 95 11/07/21 00:32 Pain Scale Pain Intensity 8 - Physical Exam General Appearance: no apparent distress, alert Eye Exam: PERRL/EOMI, eyes nml inspection Ears, Nose, Throat Exam: hearing grossly normal, normal ENT inspection, normal pharynx Neck Exam: normal inspection, non-tender, supple, full range of motion Respiratory Exam: diminished breath sounds, crackles/rales, rhonchi, No respiratory distress Cardiovascular/Chest Exam: normal heart sounds, regular rate/rhythm Abdominal/Gastrointestinal Exam: soft, normal bowel sounds, No tenderness Extremity Exam: non-tender, normal range of motion, No normal inspection (Right forearm amputation) Neurologic Exam: alert, oriented x 3, cooperative SpO2 Interpretation: normal SpO2: 95 O2 Delivery: Room Air Ordered Tests: Active Orders 24 hr Category Date Time Status CHEST 1 VIEW (PORTABLE) Stat Exams 11/07/21 00:56 Taken BNP [NT PRO BNP] Stat Lab 11/07/21 01:20 Completed CBC W DIFF Stat Lab 11/07/21 01:20 Completed CMP Stat Lab 11/07/21 01:20 Completed TROPONIN Q4H Lab 11/07/21 01:00 Ordered TROPONIN Q4H Lab 11/07/21 05:00 Ordered TROPONIN Q4H Lab 11/07/21 09:00 Ordered Respiratory Therapy Assessment DAILY RT 11/07/21 01:38 Active Medication Summary Discontinued Medications Generic Name Dose Route Start Last Admin Trade Name Freq PRN Reason Stop Dose Admin Albuterol/Ipratropium 3 ml 11/07/21 01:21 11/07/21 01:23 Ipratropium/Albuterol Sulfate 3 Ml Ampul.Neb IH 11/07/21 01:22 3 ml STAT ONE Administration Albuterol/Ipratropium Confirm 11/07/21 01:22 Ipratropium/Albuterol Sulfate 3 Ml Ampul.Neb Administered 11/07/21 01:23 Dose 3 ml IH .STK-MED ONE Methylprednisolone Sodium 0 mg 11/07/21 01:20 11/07/21 01:22 Succinate 125 mg/ Sterile IV 11/07/21 01:21 125 mg Water 2 ml STAT ONE Administration Levofloxacin 500 mg 11/07/21 02:05 Levofloxacin 500 Mg Tablet PO 11/07/21 02:06 STAT ONE Methylprednisolone Sodium Succinate Confirm 11/07/21 01:20 Methylprednis Sod Succ 125 Mg/2 Ml Vial Administered 11/07/21 01:21 Dose 125 mg .ROUTE .STK-MED ONE Sterile Water Confirm 11/07/21 01:20 Water For Injection,Sterile 10 Ml Vial Administered 11/07/21 01:21 Dose 10 ml IJ .STK-MED ONE Lab/Rad Data: Laboratory Result Diagrams 11/07/21 01:20 11/07/21 01:20 Laboratory Results 11/07/21 11/07/21 11/07/21 Range/Units 01:20 01:20 01:20 WBC 14.1 H (4.0-10.5) x10^3/uL RBC 3.71 L (4.1-5.6) x10^6/uL Hgb 10.5 L (12.5-18.0) g/dL Hct 33.7 L (42-50) % MCV 90.8 (78-100) fL MCH 28.3 (26-32) pg MCHC 31.2 L (32-36) g/dL RDW 13.1 (11.5-14.0) % Plt Count 207 (150-450) x10^3/uL MPV 10.1 (7.5-11.0) fL Gran % 88.8 H (36.0-66.0) % Immature Gran % (Auto) 0.4 (0.00-0.4) % Nucleat RBC Rel Count 0.0 (0.00-0.1) % Eos # (Auto) 0.03 (0-0.5) x10^3/uL Immature Gran # (Auto) 0.05 H (0.00-0.03) x10^3u/L Absolute Lymphs (auto) 0.52 L (1.0-4.6) x10^3/uL Absolute Monos (auto) 0.96 (0.0-1.3) x10^3/uL Absolute Nucleated RBC 0.00 (0.00-0.01) x10^3u/L Lymphocytes % 3.7 L (24.0-44.0) % Monocytes % 6.8 (0.0-12.0) % Eosinophils % 0.2 (0.00-5.0) % Basophils % 0.1 (0.0-0.4) % Absolute Granulocytes 12.47 H (1.4-6.9) x10^3/uL Basophils # 0.02 (0-0.4) x10^3/uL Sodium 138 (137-145) mmol/L Potassium 3.9 (3.5-5.1) mmol/L Chloride 106 (98-107) mmol/L Carbon Dioxide 28 (22-30) mmol/L Anion Gap 7.6 (5-15) MEQ/L BUN 28 H (9-20) mg/dL Creatinine 0.80 (0.66-1.25) mg/dL Estimated GFR > 60.0 ML/MIN Glucose 110 H (74-106) mg/dL Calcium 8.4 (8.4-10.2) mg/dL Total Bilirubin 1.30 (0.2-1.3) mg/dL AST 22 (17-59) U/L ALT 18 (0-50) U/L Alkaline Phosphatase 69 (38-126) U/L NT-Pro-B Natriuret Pep (0-900) pg/mL Serum Total Protein 6.0 L (6.3-8.2) g/dL Albumin 3.4 L (3.5-5.0) g/dL Influenza Type A Ag NEGATIVE (NEGATIVE) Influenza Type B Ag NEGATIVE (NEGATIVE) RSV (PCR) NEGATIVE (Negative) SARS-CoV-2 (PCR) POSITIVE A (NEGATIVE) 11/07/21 Range/Units 01:20 WBC (4.0-10.5) x10^3/uL RBC (4.1-5.6) x10^6/uL Hgb (12.5-18.0) g/dL Hct (42-50) % MCV (78-100) fL MCH (26-32) pg MCHC (32-36) g/dL RDW (11.5-14.0) % Plt Count (150-450) x10^3/uL MPV (7.5-11.0) fL Gran % (36.0-66.0) % Immature Gran % (Auto) (0.00-0.4) % Nucleat RBC Rel Count (0.00-0.1) % Eos # (Auto) (0-0.5) x10^3/uL Immature Gran # (Auto) (0.00-0.03) x10^3u/L Absolute Lymphs (auto) (1.0-4.6) x10^3/uL Absolute Monos (auto) (0.0-1.3) x10^3/uL Absolute Nucleated RBC (0.00-0.01) x10^3u/L Lymphocytes % (24.0-44.0) % Monocytes % (0.0-12.0) % Eosinophils % (0.00-5.0) % Basophils % (0.0-0.4) % Absolute Granulocytes (1.4-6.9) x10^3/uL Basophils # (0-0.4) x10^3/uL Sodium (137-145) mmol/L Potassium (3.5-5.1) mmol/L Chloride (98-107) mmol/L Carbon Dioxide (22-30) mmol/L Anion Gap (5-15) MEQ/L BUN (9-20) mg/dL Creatinine (0.66-1.25) mg/dL Estimated GFR ML/MIN Glucose (74-106) mg/dL Calcium (8.4-10.2) mg/dL Total Bilirubin (0.2-1.3) mg/dL AST (17-59) U/L ALT (0-50) U/L Alkaline Phosphatase (38-126) U/L NT-Pro-B Natriuret Pep 188 (0-900) pg/mL Serum Total Protein (6.3-8.2) g/dL Albumin (3.5-5.0) g/dL Influenza Type A Ag (NEGATIVE) Influenza Type B Ag (NEGATIVE) RSV (PCR) (Negative) SARS-CoV-2 (PCR) (NEGATIVE) - Progress Progress: improved, re-examined Air Movement: good Progress Note: 11/07/21 02:11 70-year-old is evaluated for cough congestion along with other flulike symptoms. Patient is given DuoNeb and Solu-Medrol, on reevaluation feeling some improvement. Chest x-ray showed right-sided infiltrative process and given Levaquin. Has a white count of 14, grossly unremarkable chemistries, negative troponin. COVID-19 is positive. I have discussed with patient and in detail about Paxilovid, went over risk and benefits and he does not want at this point. Patient is not tachypneic or tachycardic and maintaining oxygen saturation around 96% on room air. I would give him albuterol inhaler along with steroids and Levaquin to go home. Outpatient follow-up recommended. Discussed signs symptoms of worsening needing return to ER which she seems understanding. Blood Culture(s) Obtained: No Antibiotics given: Yes Counseled pt/family regarding: lab results, diagnosis, need for follow-up, rad results, smoking cessation - Departure Departure Disposition: Home Clinical Impression: COVID-19, COPD with acute bronchitis Condition: Stable Critical Care Time: No Referrals: JONATHAN GOMEZ [Primary Care Provider] - Follow up/PCP as directed (1-2 days for reevaluation) Instructions: Chronic Obstructive Pulmonary Disease, Exacerbation of COPD (DC), COVID-19 (DC) Additional Instructions: Follow contact/droplet precautions. Do not smoke. Drink plenty of fluids to keep yourself well-hydrated. Follow-up with primary care for reevaluation. Use inhaler as needed for difficulty breathing. Return to ER for worsening difficulty breathing, fever, worsening weakness, chest pain etc. Prescriptions: Albuterol Sulfate [Albuterol Sulfate Hfa] 8.5 gm IH Q6H PRN 7 Days #1 inh PRN Reason: Cough Dexamethasone [Decadron] 6 mg PO DAILY #5 tablet Levofloxacin [Levaquin 500 MG Tablet] 500 mg PO DAILY #7 tablet
[2021-11-07 01:40] LABS: ALBUMIN 3.4 g/dL (3.5-5.0); ALKALINE PHOSPHATASE 69 U/L (38-126); ANION GAP 7.6 MEQ/L (5-15); BLOOD UREA NITROGEN 28 mg/dL (9-20); CHLORIDE 106 mmol/L (98-107); Calcium 8.4 mg/dL (8.4-10.2); Carbon Dioxide 28 mmol/L (22-30); EST GLOMERULAR FILTRATION RATE > 60.0 ML/MIN; Glucose 110 mg/dL (74-106); Potassium 3.9 mmol/L (3.5-5.1); SGOT/AST 22 U/L (17-59); SGPT/ALT 18 U/L (0-50); SODIUM 138 mmol/L (137-145)
[2021-11-07 02:02] LABS: INFLUENZA A NEGATIVE (NEGATIVE); INFLUENZA B NEGATIVE (NEGATIVE); RESPIRATORY SYNCTIAL VIRUS NEGATIVE (Negative)
[2021-11-07] MEDS ORDERED: Levofloxacin 500 MG Tablet PO ONE (02:05)
[2021-11-07 02:07] LABS: SARS-CoV-2 Xpert Express POSITIVE (NEGATIVE)
[2021-11-07 02:15] VITALS: BP 130/72; PULSE 80
[2021-11-07] MEDS ORDERED: Levofloxacin 500 MG Tablet ONE (02:15)
[2021-11-07 02:20] LABS: Slide Review 1 YES
--- NOTE | 2021-11-07 20:03 | XRAY ---
Exam: AP portable chest film from 11/07/2021. Comparison: AP upright portable chest film from 10/26/2021. Indication: Shortness of breath; not feeling well as of late. Findings: The transverse heart size appears borderline to slightly enlarged. Moderate tortuosity of the descending thoracic aorta is seen. Right subcarinal and right perihilar granulomatous calcifications are again seen. Metallic shrapnel is seen projected over the lateral right lower chest. The lungs are mildly hyperinflated. I note some increasing airspace disease at the lateral right lung base and new mild airspace disease at the left lung base, the latter partially obscuring the lateral aspect of the left hemidiaphragm. There is probably a small amount of pleural fluid or pleural scarring blunting the right lateral lung sulcus. This is unchanged. The remainder of the lung mobley appears clear. No acute osseous process is seen. Impression: 1. Bibasilar air space infiltrates, right greater than left, are seen representing an unfavorable change from 10/26/2021. This is suggestive of bibasilar pneumonia. 2. There is again noted to be mild blunting the right lateral lung sulcus consistent with a small amount of pleural fluid or pleural scarring. 3. Borderline to slight cardiomegaly, old healed granulomatous disease, and metallic shrapnel overlying the lateral lower right chest are again seen.
== END 2021-11-07 02:27 | disposition home or self-care (01) ==
LOC: ED 00:31
DX: U07.1 COVID-19 (principal); J44.0 Chronic obstructive pulmonary disease with (acute) lower respiratory infection; J20.9 Acute bronchitis, unspecified; R06.02 Shortness of breath; R05.9 Cough, unspecified; R43.8 Other disturbances of smell and taste; R53.1 Weakness; I10 Essential (primary) hypertension; Z72.0 Tobacco use; Z79.52 Long term (current) use of systemic steroids; Z28.310 Unvaccinated for COVID-19
CPT/HCPCS: 0241U; 36000; 36415; 71045; 80053; 83880; 84484; 85025; 93005; 94640; 96374; 99284; J2930; A9270-GY

== ENCOUNTER 2021-11-19 20:54 | Inpatient (IN) | payer MEDICARE, SELFPAY ==
[2021-11-19] MEDS ORDERED: solu-MEDROL 125 MG, Sterile H2O 10 ml 2 ML IV ONE ×2 (22:04)
[2021-11-19] MEDS ORDERED: DUONEB 0.5-3 MG/3 ml Neb IH ONE ×2 (22:04→22:22)
[2021-11-19] MEDS ORDERED: Sterile H2O 10 ml IJ ONE (22:19)
[2021-11-19] MEDS ORDERED: solu-MEDROL ONE (22:19)
[2021-11-19 22:38] LABS: Absolute Neutrophil Ct (ANC) 9.05 x10^3/uL (1.4-6.9); Basophil (Absolute #) 0.01 x10^3/uL (0-0.4); Eosinophil % 0.6 % (0.00-5.0); Eosinophil (Absolute #) 0.06 x10^3/uL (0-0.5); Hemoglobin 9.2 g/dL (12.5-18.0); Lymphocyte (Absolute #) 0.52 x10^3/uL (1.0-4.6); Lymphocytes % 4.9 % (24.0-44.0); Mean Cell Volume 90.9 fL (78-100); Mean Corpuscular Hemoglobin 27.9 pg (26-32); Mean Corpuscular Hgb Concent. 30.7 g/dL (32-36); Mean Platelet Volume 10.1 fL (7.5-11.0); Monocyte (Absolute #) 0.86 x10^3/uL (0.0-1.3); Monocytes % 8.2 % (0.0-12.0); Neutrophil % 85.7 % (36.0-66.0); Platelet Count 247 x10^3/uL (150-450); Red Cell Distribution Width 13.4 % (11.5-14.0); White Blood Count 10.6 x10^3/uL (4.0-10.5)
[2021-11-19 22:56] LABS: ALBUMIN 3.4 g/dL (3.5-5.0); ALKALINE PHOSPHATASE 89 U/L (38-126); ANION GAP 7.9 MEQ/L (5-15); BLOOD UREA NITROGEN 22 mg/dL (9-20); CHLORIDE 105 mmol/L (98-107); Calcium 8.1 mg/dL (8.4-10.2); Carbon Dioxide 29 mmol/L (22-30); Creatinine 1 0.76 mg/dL (0.66-1.25); EST GLOMERULAR FILTRATION RATE > 60.0 ML/MIN; Glucose 132 mg/dL (74-106); NT PRO BNP 236 pg/mL (0-900); Potassium 3.7 mmol/L (3.5-5.1); SGOT/AST 24 U/L (17-59); SGPT/ALT 22 U/L (0-50); SODIUM 139 mmol/L (137-145); Total Protein 6.5 g/dL (6.3-8.2)
[2021-11-20] LABS: Slide Review 1 YES
--- NOTE | 2021-11-20 00:31 | ERPHSYRPT ---
- History of Present Illness Time Seen by Provider: 11/19/21 21:00 Source: patient Exam Limitations: no limitations Patient Subjective Stated Complaint: pt states "For the past month I haven't been able to breath. Last night, I couldn't lay down." Triage Nursing Assessment: pt ambulated into the er; pt is axo x4; c/o SOB; pt states 9/10 left ribs; pt states hx of covid 2 weeks ago; coarse lung sounds in all lobes; audible wheezing present; skin PDW; vitals wnl Physician History: 70-year-old male with history of COPD, tobacco abuse, BPH, recent COVID-19 almost a month ago presented in the ER with shortness of breath which is progressively worsening over a month time. He has taken couple of courses of steroid and antibiotics with no significant relief. Patient reports getting worsening shortness of breath with lying down and activity, has to sit on a recliner for sleeping. Patient is not in any distress and oxygen saturation around 97% with heart rate in 70s but reports feeling short of breath even now. No fever or chills reported but does have cough productive of yellow-green sputum moderate in amount. Because of repeated coughing having generalized chest soreness. Timing/Duration: week(s) (4), gradual onset, worse Activities at Onset: activity, rest Severity of Dyspnea-Max: moderate Severity of Dyspnea-Current: moderate Possible Cause: illness exposure Modifying Factors: Worsens With: coughing, exertion, lying down Associated Symptoms: cough, chest pain/discomfort, painful breathing, productive cough, tightness, No weakness, No heaviness Allergies/Adverse Reactions: No Known Drug Allergies Allergy (Unverified 11/19/21 21:22) Home Medications: Finasteride [Proscar] 5 mg PO DAILY 11/19/21 [History] Hx Tetanus, Diphtheria Vaccination/Date Given: No Hx Influenza Vaccination/Date Given: No Hx Pneumococcal Vaccination/Date Given: No Travel Risk - International Travel Have you traveled outside of the country in past 3 weeks: No - Coronavirus Screening Are you exhibiting any of the following symptoms?: Yes Symptoms: Fever, Cough: New Onset, Shortness of Breath Close contact with a COVID-19 positive Pt in past 14-21 Days: Yes - Vaccine Status Have you recieved a Covid-19 vaccination: No - Review of Systems Constitutional: Fatigue Eyes: No Symptoms Ears, Nose, & Throat: No Symptoms Respiratory: Cough, Dyspnea, Dyspnea on Exertion (STOREY), Wheezing Cardiac: Chest Pain Abdominal/Gastrointestinal: No Symptoms Genitourinary Symptoms: No Symptoms Musculoskeletal: Arthralgias, Deformity (Right forearm amputation) Skin: No Symptoms Neurological: No Symptoms Psychological: No Symptoms Hematologic/Lymphatic: No Symptoms Immunological/Allergic: No Symptoms - Past Medical History Pertinent Past Medical History: Yes Cardiac History: Other Respiratory History: COPD Musculoskeletal History: Arthritis GI Medical History: Hemorrhoids History: No Pertinent History Psycho-Social History: No Pertinent History Male Reproductive Disorders: Prostate Cancer - Past Surgical History Past Surgical History: Yes Musculoskeletal: Amputation, Orthopedic Surgery - Social History Smoking Status: Smoker, status unknown Exposure to second hand smoke: Yes Drug Use: none Patient Lives Alone: No - Nursing Vital Signs Nursing Vital Signs: Initial Vital Signs Temperature 100 F 11/19/21 21:23 Pulse Rate 83 11/19/21 21:23 Respiratory Rate 20 11/19/21 21:23 Blood Pressure 131/77 11/19/21 21:23 O2 Sat by Pulse Oximetry 97 11/19/21 21:23 Pain Scale Pain Intensity 0 - Physical Exam General Appearance: no apparent distress, alert Eye Exam: PERRL/EOMI, eyes nml inspection Ears, Nose, Throat Exam: hearing grossly normal, normal ENT inspection Neck Exam: normal inspection, non-tender, supple, full range of motion Respiratory Exam: crackles/rales, rhonchi, wheezing, No respiratory distress, No accessory muscle use Cardiovascular/Chest Exam: normal heart sounds, regular rate/rhythm Abdominal/Gastrointestinal Exam: soft, normal bowel sounds, No tenderness Extremity Exam: non-tender, normal range of motion, No normal inspection (Right forearm amputation) Neurologic Exam: alert, oriented x 3, cooperative Skin Exam: normal color SpO2 Interpretation: normal SpO2: 98 O2 Delivery: Room Air - Course Nursing assessment & vital signs reviewed: Yes EKG Interpreted by Me: RATE ([id number]), Sinus Rhythm, NORMAL AXIS, NORMAL INTERVALS, Right Bundle Branch Block, Non-specific ST Changes, Other (LVH) Ordered Tests: Active Orders 24 hr Category Date Time Status Bedrest ROUTINE Activity 11/20/21 02:27 Active Up With Assistance ROUTINE Activity 11/20/21 02:27 Active Code Status Order ROUTINE Care 11/20/21 02:27 Active Fall Protocol Q1H Care 11/20/21 02:27 Active IV Care Q6H Care 11/20/21 02:[address] in Observation ROUTINE Care 11/20/21 02:27 Active Weight,Daily 0600 Care 11/20/21 02:27 Active Heart-Healthy Diet Diet 11/20/21 Breakfast Active BLOOD CULTURE Stat Lab 11/20/21 01:30 Received CBC W DIFF AM.LAB Lab 11/20/21 05:59 Completed CMP AM.LAB Lab 11/20/21 05:59 Completed TROPONIN Q4H Lab 11/20/21 01:27 Completed TROPONIN Q4H Lab 11/20/21 05:59 Completed Oxygen Nasal Cannula 2 lpm RT 11/20/21 02:27 Active Transfer Order Routine Transfer 11/20/21 Completed Medication Summary Generic Name Dose Route Start Last Admin Trade Name Freq PRN Reason Stop Dose Admin Acetaminophen 650 mg 11/20/21 02:27 Acetaminophen 325 Mg Tablet PO 12/20/21 02:26 Q4H PRN PRN PAIN AND/OR FEVER Albuterol/Ipratropium 3 ml 11/20/21 07:00 11/20/21 19:05 Ipratropium/Albuterol Sulfate 3 Ml Ampul.Neb IH 12/20/21 06:59 3 ml Q6HRT ONEIL Administration Methylprednisolone Sodium 0 mg 11/20/21 06:00 11/20/21 23:12 Succinate 60 mg/ Sterile Water IV 12/20/21 05:59 60 mg 2 ml Q6HT ONEIL Administration Finasteride 5 mg 11/20/21 10:00 11/20/21 09:32 Finasteride 5 Mg Tablet PO 12/20/21 09:59 5 mg DAILY ONEIL Administration Azithromycin 500 mg in 250 mls @ 250 mls/hr 11/20/21 22:00 11/20/21 21:25 Zithromax 500 Mg/ 250 Ml Nacl Premix IV 12/20/21 21:59 250 mls/hr Q24H22 ONEIL Administration Piperacillin Sod/Tazobactam 100 mls @ 200 mls/hr 11/20/21 08:00 11/20/21 20:31 Sod 3.375 gm/ Sodium Chloride IV 11/23/21 07:59 200 mls/hr Q6H ONEIL Administration Morphine Sulfate 2 mg 11/20/21 02:27 Morphine Sulfate 2 Mg/Ml Inj IV 11/25/21 02:26 Q4H PRN PRN PAIN Ondansetron HCl 4 mg 11/20/21 02:27 Ondansetron Hcl 4 Mg/2 Ml Vial IV 12/20/21 02:26 Q6H PRN PRN NAUSEA/VOMITING Pantoprazole Sodium 40 mg 11/20/21 10:00 11/20/21 09:32 Pantoprazole 40 Mg Vial IV 12/20/21 09:59 40 mg Q24H10 ONEIL Administration Discontinued Medications Generic Name Dose Route Start Last Admin Trade Name Freq PRN Reason Stop Dose Admin Albuterol/Ipratropium 3 ml 11/19/21 22:04 11/19/21 22:23 Ipratropium/Albuterol Sulfate 3 Ml Ampul.Neb IH 11/19/21 22:05 3 ml STAT ONE Administration Albuterol/Ipratropium Confirm 11/19/21 22:22 Ipratropium/Albuterol Sulfate 3 Ml Ampul.Neb Administered 11/19/21 22:23 Dose 3 ml IH .STK-MED ONE Methylprednisolone Sodium 0 mg 11/19/21 22:04 11/19/21 22:21 Succinate 125 mg/ Sterile IV 11/19/21 22:05 125 mg Water 2 ml STAT ONE Administration Piperacillin Sod/Tazobactam 100 mls @ 200 mls/hr 11/20/21 00:50 11/20/21 01:38 Sod 3.375 gm/ Sodium Chloride IV 11/20/21 01:19 200 mls/hr STAT ONE Administration Azithromycin 500 mg in 250 mls @ 250 mls/hr 11/20/21 00:50 11/20/21 01:57 Zithromax 500 Mg/ 250 Ml Nacl Premix IV 11/20/21 01:49 250 mls/hr STAT STA 250 mls/hr Administration Sodium Chloride Confirm 11/20/21 01:35 Sodium Chloride 100ml Mini-Bag Plus Administered 11/20/21 01:36 Dose 100 mls @ ud IV .STK-MED ONE Azithromycin Confirm 11/20/21 01:56 Zithromax 500 Mg/ 250 Ml Nacl Premix Administered 11/20/21 01:57 Dose 500 mg in 250 mls @ ud IV .STK-MED ONE Piperacillin Sod/Tazobactam 100 mls @ 200 mls/hr 11/20/21 06:00 11/20/21 06:01 Sod 3.375 gm/ Sodium Chloride IV 11/23/21 05:59 Not Given Q6HT ONEIL Methylprednisolone Sodium Succinate Confirm 11/19/21 22:19 Methylprednis Sod Succ 125 Mg/2 Ml Vial Administered 11/19/21 22:20 Dose 125 mg .ROUTE .STK-MED ONE Methylprednisolone Sodium Succinate Confirm 11/20/21 05:49 Methylprednis Sod Succ 125 Mg/2 Ml Vial Administered 11/20/21 05:50 Dose 125 mg .ROUTE .STK-MED ONE Piperacillin Sod/Tazobactam Sod Confirm 11/20/21 01:35 Piperacillin/Tazobactam Sodium 3.375 Gm Vial Administered 11/20/21 01:36 Dose 3.375 gm IV .STK-MED ONE Sterile Water Confirm 11/19/21 22:19 Water For Injection,Sterile 10 Ml Vial Administered 11/19/21 22:20 Dose 10 ml IJ .STK-MED ONE Lab/Rad Data: Laboratory Result Diagrams 11/19/21 22:35 11/19/21 22:35 Laboratory Results 11/20/21 11/19/21 11/19/21 Range/Units 01:27 22:35 22:35 WBC (4.0-10.5) x10^3/uL RBC (4.1-5.6) x10^6/uL Hgb (12.5-18.0) g/dL Hct (42-50) % MCV (78-100) fL MCH (26-32) pg MCHC (32-36) g/dL RDW (11.5-14.0) % Plt Count (150-450) x10^3/uL MPV (7.5-11.0) fL Gran % (36.0-66.0) % Immature Gran % (Auto) (0.00-0.4) % Nucleat RBC Rel Count (0.00-0.1) % Eos # (Auto) (0-0.5) x10^3/uL Immature Gran # (Auto) (0.00-0.03) x10^3u/L Absolute Lymphs (auto) (1.0-4.6) x10^3/uL Absolute Monos (auto) (0.0-1.3) x10^3/uL Absolute Nucleated RBC (0.00-0.01) x10^3u/L Lymphocytes % (24.0-44.0) % Monocytes % (0.0-12.0) % Eosinophils % (0.00-5.0) % Basophils % (0.0-0.4) % Absolute Granulocytes (1.4-6.9) x10^3/uL Basophils # (0-0.4) x10^3/uL Sodium 139 (137-145) mmol/L Potassium 3.7 (3.5-5.1) mmol/L Chloride 105 (98-107) mmol/L Carbon Dioxide 29 (22-30) mmol/L Anion Gap 7.9 (5-15) MEQ/L BUN 22 H (9-20) mg/dL Creatinine 0.76 (0.66-1.25) mg/dL Estimated GFR > 60.0 ML/MIN Glucose 132 H (74-106) mg/dL Lactic Acid (0.4-2.0) Calcium 8.1 L (8.4-10.2) mg/dL Magnesium 2.0 (1.6-2.3) mg/dL Total Bilirubin 0.60 (0.2-1.3) mg/dL AST 24 (17-59) U/L ALT 22 (0-50) U/L Alkaline Phosphatase 89 (38-126) U/L Troponin I < 0.012 < 0.012 (0.000-0.034) ng/mL NT-Pro-B Natriuret Pep 236 (0-900) pg/mL Serum Total Protein 6.5 (6.3-8.2) g/dL Albumin 3.4 L (3.5-5.0) g/dL Influenza Type A Ag (NEGATIVE) Influenza Type B Ag (NEGATIVE) RSV (PCR) (Negative) SARS-CoV-2 (PCR) (NEGATIVE) Slides for Path Review 11/19/21 11/19/21 11/19/21 Range/Units 22:35 22:04 00:27 WBC 10.6 H (4.0-10.5) x10^3/uL RBC 3.30 L (4.1-5.6) x10^6/uL Hgb 9.2 L (12.5-18.0) g/dL Hct 30.0 L (42-50) % MCV 90.9 (78-100) fL MCH 27.9 (26-32) pg MCHC 30.7 L (32-36) g/dL RDW 13.4 (11.5-14.0) % Plt Count 247 (150-450) x10^3/uL MPV 10.1 (7.5-11.0) fL Gran % 85.7 H (36.0-66.0) % Immature Gran % (Auto) 0.5 H (0.00-0.4) % Nucleat RBC Rel Count 0.0 (0.00-0.1) % Eos # (Auto) 0.06 (0-0.5) x10^3/uL Immature Gran # (Auto) 0.05 H (0.00-0.03) x10^3u/L Absolute Lymphs (auto) 0.52 L (1.0-4.6) x10^3/uL Absolute Monos (auto) 0.86 (0.0-1.3) x10^3/uL Absolute Nucleated RBC 0.00 (0.00-0.01) x10^3u/L Lymphocytes % 4.9 L (24.0-44.0) % Monocytes % 8.2 (0.0-12.0) % Eosinophils % 0.6 (0.00-5.0) % Basophils % 0.1 (0.0-0.4) % Absolute Granulocytes 9.05 H (1.4-6.9) x10^3/uL Basophils # 0.01 (0-0.4) x10^3/uL Sodium (137-145) mmol/L Potassium (3.5-5.1) mmol/L Chloride (98-107) mmol/L Carbon Dioxide (22-30) mmol/L Anion Gap (5-15) MEQ/L BUN (9-20) mg/dL Creatinine (0.66-1.25) mg/dL Estimated GFR ML/MIN Glucose (74-106) mg/dL Lactic Acid 1.7 (0.4-2.0) Calcium (8.4-10.2) mg/dL Magnesium (1.6-2.3) mg/dL Total Bilirubin (0.2-1.3) mg/dL AST (17-59) U/L ALT (0-50) U/L Alkaline Phosphatase (38-126) U/L Troponin I (0.000-0.034) ng/mL NT-Pro-B Natriuret Pep (0-900) pg/mL Serum Total Protein (6.3-8.2) g/dL Albumin (3.5-5.0) g/dL Influenza Type A Ag NEGATIVE (NEGATIVE) Influenza Type B Ag NEGATIVE (NEGATIVE) RSV (PCR) NEGATIVE (Negative) SARS-CoV-2 (PCR) POSITIVE A (NEGATIVE) Slides for Path Review YES - Progress Progress: re-examined Air Movement: fair Progress Note: 11/20/21 01:46 70-year-old is evaluated for worsening shortness of breath for 1 month. Although patient does not seem to be short of breath and maintaining vital but patient complaining a lot, looks miserable and cannot lie flat, given DuoNeb and Solu-Medrol, feeling mild improvement. Baseline work-up showed normal white count, grossly unremarkable chemistries, obtain CTA chest because of him having recent COVID-19 and it showed no acute pulmonary embolism but has multifocal pneumonia. Patient has taken outpatient antibiotics with no significant relief. I believe he would benefit with IV antibiotics and steroids with neb treatments. Started on Zosyn and Zithromax, discussed with Dr. Koenig and patient is excepted for admission. Blood Culture(s) Obtained: Yes Antibiotics given: Yes Discussed with : Jasmyn Will see patient in: hospital (observation) Counseled pt/family regarding: lab results, diagnosis, rad results, smoking cessation - Departure Departure Disposition: Home Clinical Impression: Multifocal pneumonia Condition: Stable Critical Care Time: No
[2021-11-20] MEDS ORDERED: Zithromax 500 MG/ 250 ML NaCl Premix 500 MG/250 ML IVPB IV STA (00:50)
[2021-11-20] MEDS ORDERED: PIPERACILLIN/TAZOBACTAM 3.375 GM in Sodium Chloride 100ML MINI-BAG PLUS 100 ML IV ONE (00:50)
[2021-11-20 01:06] LABS: INFLUENZA A NEGATIVE (NEGATIVE); INFLUENZA B NEGATIVE (NEGATIVE); RESPIRATORY SYNCTIAL VIRUS NEGATIVE (Negative)
[2021-11-20] MEDS ORDERED: Sodium Chloride 100ML MINI-BAG PLUS 100 ML IV ONE (01:35)
[2021-11-20] MEDS ORDERED: PIPERACILLIN/TAZOBACTAM IV ONE (01:35)
[2021-11-20 01:52] LABS: SARS-CoV-2 Xpert Express POSITIVE (NEGATIVE)
[2021-11-20] MEDS ORDERED: Zithromax 500 MG/ 250 ML NaCl Premix 500 MG/250 ML IVPB IV ONE (01:56)
[2021-11-20] MEDS ORDERED: TYLENOL 325 MG PO PRN (02:27)
[2021-11-20] MEDS ORDERED: MORPHINE SULFATE 2 MG INJ IV PRN (02:27)
[2021-11-20] MEDS ORDERED: Zofran 4 MG/2 ML VIAL IV PRN (02:27)
[2021-11-20] MEDS ORDERED: solu-MEDROL ONE (05:49)
[2021-11-20] MEDS: solu-MEDROL 60 MG, Sterile H2O 10 ml 2 ML IV SCH ×8 (05:53→23:12)
[2021-11-20 06:00] LABS: Absolute Neutrophil Ct (ANC) 8.18 x10^3/uL (1.4-6.9); Basophil (Absolute #) 0.01 x10^3/uL (0-0.4); Eosinophil (Absolute #) 0 x10^3/uL (0-0.5); Hematocrit 25.7 % (42-50); Lymphocytes % 2.3 % (24.0-44.0); Mean Cell Volume 89.2 fL (78-100); Mean Corpuscular Hemoglobin 27.8 pg (26-32); Mean Corpuscular Hgb Concent. 31.1 g/dL (32-36); Mean Platelet Volume 9.6 fL (7.5-11.0); Monocyte (Absolute #) 0.13 x10^3/uL (0.0-1.3); Monocytes % 1.5 % (0.0-12.0); Neutrophil % 95.7 % (36.0-66.0); Platelet Count 206 x10^3/uL (150-450); Red Blood Count 2.88 x10^6/uL (4.1-5.6); Red Cell Distribution Width 13.6 % (11.5-14.0); White Blood Count 8.6 x10^3/uL (4.0-10.5)
[2021-11-20] MEDS ORDERED: PIPERACILLIN/TAZOBACTAM 3.375 GM in Sodium Chloride 100ML MINI-BAG PLUS 100 ML IV SCH ×2 (06:00→08:00)
[2021-11-20 06:21] LABS: ALKALINE PHOSPHATASE 68 U/L (38-126); ANION GAP 7.1 MEQ/L (5-15); BLOOD UREA NITROGEN 20 mg/dL (9-20); CHLORIDE 107 mmol/L (98-107); Calcium 7.7 mg/dL (8.4-10.2); Carbon Dioxide 27 mmol/L (22-30); Creatinine 1 0.71 mg/dL (0.66-1.25); EST GLOMERULAR FILTRATION RATE > 60.0 ML/MIN; Glucose 268 mg/dL (74-106); SGOT/AST 18 U/L (17-59); SGPT/ALT 21 U/L (0-50); SODIUM 138 mmol/L (137-145); Total Protein 5.7 g/dL (6.3-8.2)
--- NOTE | 2021-11-20 06:33 | XRAY ---
Indication: Short of breath. Recent Covid 19. Multiple contiguous axial images obtained through the chest using 100 cc Isovue 370 contrast and PE protocol. Comparison: None Good opacification of the pulmonary arteries to include the lobar and segmental branches. No pulmonary embolus. Heart not enlarged. Aorta is normal in course and caliber. [place] subcarinal and tiny right hilar calcified nodes. No pathologic mediastinal/hilar lymphadenopathy. Lungs demonstrates patchy consolidating bilateral lower lobe and lesser degree lingula airspace disease. Also small bilateral effusions, right greater than left. Elsewhere pulmonary emphysema and small right lung calcified granulomas. Bony thorax intact. Limited upper abdomen demonstrates multiple hepatic/splenic calcified granulomas. Also right upper quadrant metallic shrapnel. Impression: 1. Negative pulmonary embolus. 2. Bilateral lower lobe and lingula airspace disease with bilateral effusions. 3. Chronic findings including pulmonary emphysema and old granulomatous disease. Comment: Preliminary interpretation made by [facility]. No critical discrepancy.
[2021-11-20] MEDS: DUONEB 0.5-3 MG/3 ml Neb IH SCH ×3 (06:41→19:05)
--- NOTE | 2021-11-20 07:58 | PCM.HP ---
History of Present Illness - Chief Complaint Chief Complaint: Multifocal pneumonia History of Present Illness: is a 70 year old male with shortness of breath and cough, he was ill 1 month ago and diagnosed with covid. he has been treated with several courses of steroids and antibiotics, persists with cough and mostly short of breath. he has a history of tobacco use, he is feeling some better since admission. - Review of Systems Constitutional: No Fever, No Chills Respiratory: Cough, Short Of Breath Cardiac: No Chest Pain, No Edema, No Syncope Abdominal/Gastrointestinal: No Abdominal Pain, No Nausea, No Vomiting, No Diarrhea Genitourinary Symptoms: No Dysuria Skin: No Rash All Other Systems: Reviewed and Negative Medications & Allergies Home Medications: Home Medication List Finasteride [Proscar] 5 mg PO 11/19/21 [History] Allergies/Adverse Reactions: Allergies Allergy/AdvReac Type Severity Reaction Status Date / Time No Known Drug Allergies Allergy Unverified 11/19/21 21:22 - Past Medical History Past Medical History: Yes Cardiac History: Other Respiratory History: COPD Musculoskelatal History: Arthritis GI Medical History: Hemorrhoids History: No Pertinent History Pyscho-Social History: No Pertinent History Male Reproductive Disorders: Prostate Cancer - Past Surgical History Past Surgical History: Yes Musculskeletal Surgical Hx: Amputation, Orthopedic Surgery - Social History Smoking Status: Former smoker How long have you smoked: 50 Exposure to second hand smoke: Yes Alcohol: None Drug Use: none - Physical Exam Vital Signs: Vital Signs - 24 hr Temp Pulse Resp BP Pulse Ox 11/20/21 06:57 93 L 11/20/21 06:47 68 16 97 11/20/21 04:00 97.7 F 80 18 122/73 98 11/20/21 03:59 80 18 98 11/20/21 03:00 97.7 F 80 18 122/73 98 11/20/21 02:46 97.7 F 96 H 20 122/73 93 L 11/20/21 02:18 88 133/75 99 11/20/21 01:49 98 11/20/21 01:00 91 H 138/77 97 11/20/21 00:00 80 118/89 96 11/19/21 23:37 83 16 128/70 98 11/19/21 22:23 84 18 97 11/19/21 22:00 99 F 79 22 125/77 100 11/19/21 21:23 100 F 83 22 131/77 97 General Appearance: no apparent distress Neurologic Exam: alert, oriented x 3 Respiratory Exam: prolonged expirations, crackles/rales, rhonchi Cardiovascular Exam: regular rate/rhythm, normal heart sounds, normal peripheral pulses Gastrointestinal/Abdomen Exam: soft, normal bowel sounds, No tenderness, No mass Extremity Exam: normal inspection, normal range of motion, pelvis stable Skin Exam: normal color, warm, dry, No rash Results - Labs Lab/Micro Results: Lab Results-Last 24 Hours 11/19/21 11/19/21 11/19/21 Range/Units 00:27 22:04 22:35 WBC 10.6 H (4.0-10.5) x10^3/uL RBC 3.30 L (4.1-5.6) x10^6/uL Hgb 9.2 L (12.5-18.0) g/dL Hct 30.0 L (42-50) % MCV 90.9 (78-100) fL MCH 27.9 (26-32) pg MCHC 30.7 L (32-36) g/dL RDW 13.4 (11.5-14.0) % Plt Count 247 (150-450) x10^3/uL MPV 10.1 (7.5-11.0) fL Gran % 85.7 H (36.0-66.0) % Immature Gran % (Auto) 0.5 H (0.00-0.4) % Nucleat RBC Rel Count 0.0 (0.00-0.1) % Eos # (Auto) 0.06 (0-0.5) x10^3/uL Immature Gran # (Auto) 0.05 H (0.00-0.03) x10^3u/L Absolute Lymphs (auto) 0.52 L (1.0-4.6) x10^3/uL Absolute Monos (auto) 0.86 (0.0-1.3) x10^3/uL Absolute Nucleated RBC 0.00 (0.00-0.01) x10^3u/L Lymphocytes % 4.9 L (24.0-44.0) % Monocytes % 8.2 (0.0-12.0) % Eosinophils % 0.6 (0.00-5.0) % Basophils % 0.1 (0.0-0.4) % Absolute Granulocytes 9.05 H (1.4-6.9) x10^3/uL Basophils # 0.01 (0-0.4) x10^3/uL Sodium (137-145) mmol/L Potassium (3.5-5.1) mmol/L Chloride (98-107) mmol/L Carbon Dioxide (22-30) mmol/L Anion Gap (5-15) MEQ/L BUN (9-20) mg/dL Creatinine (0.66-1.25) mg/dL Estimated GFR ML/MIN Glucose (74-106) mg/dL Lactic Acid 1.7 (0.4-2.0) Calcium (8.4-10.2) mg/dL Magnesium (1.6-2.3) mg/dL Total Bilirubin (0.2-1.3) mg/dL AST (17-59) U/L ALT (0-50) U/L Alkaline Phosphatase (38-126) U/L Troponin I (0.000-0.034) ng/mL NT-Pro-B Natriuret Pep (0-900) pg/mL Serum Total Protein (6.3-8.2) g/dL Albumin (3.5-5.0) g/dL Influenza Type A Ag NEGATIVE (NEGATIVE) Influenza Type B Ag NEGATIVE (NEGATIVE) RSV (PCR) NEGATIVE (Negative) SARS-CoV-2 (PCR) POSITIVE A (NEGATIVE) Slides for Path Review YES 11/19/21 11/19/21 11/20/21 Range/Units 22:35 22:35 01:27 WBC (4.0-10.5) x10^3/uL RBC (4.1-5.6) x10^6/uL Hgb (12.5-18.0) g/dL Hct (42-50) % MCV (78-100) fL MCH (26-32) pg MCHC (32-36) g/dL RDW (11.5-14.0) % Plt Count (150-450) x10^3/uL MPV (7.5-11.0) fL Gran % (36.0-66.0) % Immature Gran % (Auto) (0.00-0.4) % Nucleat RBC Rel Count (0.00-0.1) % Eos # (Auto) (0-0.5) x10^3/uL Immature Gran # (Auto) (0.00-0.03) x10^3u/L Absolute Lymphs (auto) (1.0-4.6) x10^3/uL Absolute Monos (auto) (0.0-1.3) x10^3/uL Absolute Nucleated RBC (0.00-0.01) x10^3u/L Lymphocytes % (24.0-44.0) % Monocytes % (0.0-12.0) % Eosinophils % (0.00-5.0) % Basophils % (0.0-0.4) % Absolute Granulocytes (1.4-6.9) x10^3/uL Basophils # (0-0.4) x10^3/uL Sodium 139 (137-145) mmol/L Potassium 3.7 (3.5-5.1) mmol/L Chloride 105 (98-107) mmol/L Carbon Dioxide 29 (22-30) mmol/L Anion Gap 7.9 (5-15) MEQ/L BUN 22 H (9-20) mg/dL Creatinine 0.76 (0.66-1.25) mg/dL Estimated GFR > 60.0 ML/MIN Glucose 132 H (74-106) mg/dL Lactic Acid (0.4-2.0) Calcium 8.1 L (8.4-10.2) mg/dL Magnesium 2.0 (1.6-2.3) mg/dL Total Bilirubin 0.60 (0.2-1.3) mg/dL AST 24 (17-59) U/L ALT 22 (0-50) U/L Alkaline Phosphatase 89 (38-126) U/L Troponin I < 0.012 < 0.012 (0.000-0.034) ng/mL NT-Pro-B Natriuret Pep 236 (0-900) pg/mL Serum Total Protein 6.5 (6.3-8.2) g/dL Albumin 3.4 L (3.5-5.0) g/dL Influenza Type A Ag (NEGATIVE) Influenza Type B Ag (NEGATIVE) RSV (PCR) (Negative) SARS-CoV-2 (PCR) (NEGATIVE) Slides for Path Review 11/20/21 11/20/21 11/20/21 Range/Units 05:59 05:59 05:59 WBC 8.6 (4.0-10.5) x10^3/uL RBC 2.88 L (4.1-5.6) x10^6/uL Hgb 8.0 L (12.5-18.0) g/dL Hct 25.7 L (42-50) % MCV 89.2 (78-100) fL MCH 27.8 (26-32) pg MCHC 31.1 L (32-36) g/dL RDW 13.6 (11.5-14.0) % Plt Count 206 (150-450) x10^3/uL MPV 9.6 (7.5-11.0) fL Gran % 95.7 H (36.0-66.0) % Immature Gran % (Auto) 0.4 (0.00-0.4) % Nucleat RBC Rel Count 0.0 (0.00-0.1) % Eos # (Auto) 0 (0-0.5) x10^3/uL Immature Gran # (Auto) 0.03 (0.00-0.03) x10^3u/L Absolute Lymphs (auto) 0.20 L (1.0-4.6) x10^3/uL Absolute Monos (auto) 0.13 (0.0-1.3) x10^3/uL Absolute Nucleated RBC 0.00 (0.00-0.01) x10^3u/L Lymphocytes % 2.3 L (24.0-44.0) % Monocytes % 1.5 (0.0-12.0) % Eosinophils % 0.0 (0.00-5.0) % Basophils % 0.1 (0.0-0.4) % Absolute Granulocytes 8.18 H (1.4-6.9) x10^3/uL Basophils # 0.01 (0-0.4) x10^3/uL Sodium 138 (137-145) mmol/L Potassium 4.0 (3.5-5.1) mmol/L Chloride 107 (98-107) mmol/L Carbon Dioxide 27 (22-30) mmol/L Anion Gap 7.1 (5-15) MEQ/L BUN 20 (9-20) mg/dL Creatinine 0.71 (0.66-1.25) mg/dL Estimated GFR > 60.0 ML/MIN Glucose 268 H (74-106) mg/dL Lactic Acid (0.4-2.0) Calcium 7.7 L (8.4-10.2) mg/dL Magnesium (1.6-2.3) mg/dL Total Bilirubin 0.40 (0.2-1.3) mg/dL AST 18 (17-59) U/L ALT 21 (0-50) U/L Alkaline Phosphatase 68 (38-126) U/L Troponin I < 0.012 (0.000-0.034) ng/mL NT-Pro-B Natriuret Pep (0-900) pg/mL Serum Total Protein 5.7 L (6.3-8.2) g/dL Albumin 3.0 L (3.5-5.0) g/dL Influenza Type A Ag (NEGATIVE) Influenza Type B Ag (NEGATIVE) RSV (PCR) (Negative) SARS-CoV-2 (PCR) (NEGATIVE) Slides for Path Review - Radiology Impressions Radiology Exams & Impressions: Radiology Procedures Category Date Time Status CHEST WITH CONTRAST [CT] Stat Exams 11/19/21 23:02 Completed - Other Procedures and Tests Respiratory Therapy 11/19/21 23:15 Respiratory Therapy Assessment DAILY 11/20/21 02:27 Oxygen Nasal Cannula 2 lpm Assessment/Plan (1) Multifocal pneumonia Current Visit: Yes Status: Acute Assessment & Plan: continue zosyn and zithromax Code(s): J18.9 - PNEUMONIA, UNSPECIFIED ORGANISM (2) COPD with exacerbation Current Visit: Yes Status: Acute Assessment & Plan: IV solumedrol and abx coverage cont Code(s): J44.1 - CHRONIC OBSTRUCTIVE PULMONARY DISEASE W (ACUTE) EXACERBATION
[2021-11-20] MEDS: PIPERACILLIN/TAZOBACTAM 3.375 GM in Sodium Chloride 100ML MINI-BAG PLUS 100 ML IV SCH ×3 (08:11→20:31)
[2021-11-20] MEDS: PROTONIX 40 MG IV IV SCH (09:32)
[2021-11-20] MEDS: Proscar 5 MG PO SCH (09:32)
[2021-11-20 10:17] LABS: Slide Review 1 YES
[2021-11-20] MEDS: Zithromax 500 MG/ 250 ML NaCl Premix 500 MG/250 ML IVPB IV SCH (21:25)
[2021-11-21] MEDS: DUONEB 0.5-3 MG/3 ml Neb IH SCH ×4 (00:49→19:45)
[2021-11-21] MEDS: PIPERACILLIN/TAZOBACTAM 3.375 GM in Sodium Chloride 100ML MINI-BAG PLUS 100 ML IV SCH ×4 (01:55→20:30)
[2021-11-21 05:09] LABS: Absolute Neutrophil Ct (ANC) 17.21 x10^3/uL (1.4-6.9); Basophil (Absolute #) 0.02 x10^3/uL (0-0.4); Eosinophil (Absolute #) 0 x10^3/uL (0-0.5); Hemoglobin 7.8 g/dL (12.5-18.0); Lymphocyte (Absolute #) 0.14 x10^3/uL (1.0-4.6); Lymphocytes % 0.8 % (24.0-44.0); Mean Cell Volume 87.3 fL (78-100); Mean Corpuscular Hemoglobin 28.4 pg (26-32); Mean Corpuscular Hgb Concent. 32.5 g/dL (32-36); Mean Platelet Volume 9.8 fL (7.5-11.0); Monocyte (Absolute #) 0.49 x10^3/uL (0.0-1.3); Monocytes % 2.7 % (0.0-12.0); Platelet Count 221 x10^3/uL (150-450); Red Blood Count 2.75 x10^6/uL (4.1-5.6); Red Cell Distribution Width 13.5 % (11.5-14.0); White Blood Count 17.9 x10^3/uL (4.0-10.5)
[2021-11-21 05:35] LABS: ANION GAP 7.1 MEQ/L (5-15); BLOOD UREA NITROGEN 23 mg/dL (9-20); CHLORIDE 108 mmol/L (98-107); Calcium 8.1 mg/dL (8.4-10.2); Carbon Dioxide 28 mmol/L (22-30); Creatinine 1 0.57 mg/dL (0.66-1.25); EST GLOMERULAR FILTRATION RATE > 60.0 ML/MIN; Glucose 189 mg/dL (74-106); Potassium 3.9 mmol/L (3.5-5.1); SODIUM 139 mmol/L (137-145)
[2021-11-21] MEDS: solu-MEDROL 60 MG, Sterile H2O 10 ml 2 ML IV SCH ×8 (05:41→23:54)
[2021-11-21 06:43] LABS: Slide Review 1 YES
[2021-11-21] MEDS: Proscar 5 MG PO SCH (09:51)
[2021-11-21] MEDS: PROTONIX 40 MG IV IV SCH (09:51)
[2021-11-21] MEDS: Senokot-S Tablet PO PRN ×2 (10:01→21:17)
--- NOTE | 2021-11-21 11:40 | PCM.NOTE ---
Date and Time: 11/21/21 1137 Subjective Assessment: patient reports he feels a little better today but not a lot. still has cough and feels short of breath. not requiring oxygen Objective Exam General Appearance: no apparent distress Neurologic Exam: alert Respiratory Exam: rhonchi Cardiovascular Exam: regular rate/rhythm, normal heart sounds Gastrointestinal/Abdomen Exam: soft, No tenderness, No mass Extremity Exam: normal inspection, normal range of motion OBJECTIVE DATA Vital Signs: Vital Signs - 24 hr Temp Pulse Resp BP Pulse Ox 11/21/21 07:41 97.5 F 70 12 110/67 94 L 11/21/21 07:22 71 18 96 11/21/21 04:00 97.1 F 79 21 102/61 95 11/21/21 00:49 78 21 95 11/21/21 00:38 98 11/20/21 23:23 97.9 F 77 18 111/60 92 L 11/20/21 20:00 98.0 F 76 20 109/54 94 L 11/20/21 19:05 77 18 94 L 11/20/21 16:00 97.7 F 66 20 134/63 97 11/20/21 13:48 73 18 97 Pain Assessment - Last Documented Pain Intensity 0 Intake and Output: Intake & Output 11/18/21 11/19/21 11/20/21 11/21/21 11:59 11:59 11:59 11:59 Intake Total 800 1203 Output Total 800 Balance 0 1203 Weight 59.421 kg Lab Results: Lab Results-Last 24 Hours 11/21/21 11/21/21 11/21/21 Range/Units 04:45 04:45 04:45 WBC 17.9 H (4.0-10.5) x10^3/uL RBC 2.75 L (4.1-5.6) x10^6/uL Hgb 7.8 L (12.5-18.0) g/dL Hct 24.0 L (42-50) % MCV 87.3 (78-100) fL MCH 28.4 (26-32) pg MCHC 32.5 (32-36) g/dL RDW 13.5 (11.5-14.0) % Plt Count 221 (150-450) x10^3/uL MPV 9.8 (7.5-11.0) fL Gran % 96.0 H (36.0-66.0) % Immature Gran % (Auto) 0.4 (0.00-0.4) % Nucleat RBC Rel Count 0.0 (0.00-0.1) % Eos # (Auto) 0 (0-0.5) x10^3/uL Immature Gran # (Auto) 0.08 H (0.00-0.03) x10^3u/L Absolute Lymphs (auto) 0.14 L (1.0-4.6) x10^3/uL Absolute Monos (auto) 0.49 (0.0-1.3) x10^3/uL Absolute Nucleated RBC 0.00 (0.00-0.01) x10^3u/L Lymphocytes % 0.8 L (24.0-44.0) % Monocytes % 2.7 (0.0-12.0) % Eosinophils % 0.0 (0.00-5.0) % Basophils % 0.1 (0.0-0.4) % Absolute Granulocytes 17.21 H (1.4-6.9) x10^3/uL Basophils # 0.02 (0-0.4) x10^3/uL Sodium 139 (137-145) mmol/L Potassium 3.9 (3.5-5.1) mmol/L Chloride 108 H (98-107) mmol/L Carbon Dioxide 28 (22-30) mmol/L Anion Gap 7.1 (5-15) MEQ/L BUN 23 H (9-20) mg/dL Creatinine 0.57 L (0.66-1.25) mg/dL Estimated GFR > 60.0 ML/MIN Glucose 189 H (74-106) mg/dL Calcium 8.1 L (8.4-10.2) mg/dL Procalcitonin 0.172 H (0.030-0.080) ng/mL Slides for Path Review YES Radiology Exams: Radiology Procedures Category Date Time Status CHEST WITH CONTRAST [CT] Stat Exams 11/19/21 23:02 Completed Assessment/Plan (1) Multifocal pneumonia Current Visit: Yes Status: Acute Assessment & Plan: continue zosyn, shows some improvement. Code(s): J18.9 - PNEUMONIA, UNSPECIFIED ORGANISM (2) COPD with exacerbation Current Visit: Yes Status: Acute Code(s): J44.1 - CHRONIC OBSTRUCTIVE PULMONARY DISEASE W (ACUTE) EXACERBATION
[2021-11-21] MEDS ORDERED: Venofer 100 MG/5 ML*** 200 MG in Sodium Chloride 0.9% 100 ML IV SCH (13:00)
[2021-11-21 15:49] LABS: Free T4 1.76 ng/dL (0.76-1.46)
[2021-11-21 15:52] LABS: Iron < 10 ug/dL (49-181)
[2021-11-21 16:31] LABS: Folate (Folic Acid) 5.33 ng/mL (2.76 - >20); TSH, 3RD Generation 0.044 mIU/L (0.47-4.68)
[2021-11-21] MEDS: Zithromax 500 MG/ 250 ML NaCl Premix 500 MG/250 ML IVPB IV SCH (21:17)
[2021-11-22] MEDS: DUONEB 0.5-3 MG/3 ml Neb IH SCH ×4 (01:10→18:57)
[2021-11-22] MEDS: PIPERACILLIN/TAZOBACTAM 3.375 GM in Sodium Chloride 100ML MINI-BAG PLUS 100 ML IV SCH ×4 (03:05→21:44)
[2021-11-22 04:42] LABS: Absolute Neutrophil Ct (ANC) 16.91 x10^3/uL (1.4-6.9); Basophil (Absolute #) 0.01 x10^3/uL (0-0.4); Eosinophil (Absolute #) 0 x10^3/uL (0-0.5); Hematocrit 27.8 % (42-50); Hemoglobin 8.5 g/dL (12.5-18.0); Lymphocyte (Absolute #) 0.12 x10^3/uL (1.0-4.6); Lymphocytes % 0.7 % (24.0-44.0); Mean Cell Volume 90.8 fL (78-100); Mean Corpuscular Hemoglobin 27.8 pg (26-32); Mean Corpuscular Hgb Concent. 30.6 g/dL (32-36); Mean Platelet Volume 9.2 fL (7.5-11.0); Monocyte (Absolute #) 0.42 x10^3/uL (0.0-1.3); Monocytes % 2.4 % (0.0-12.0); Neutrophil % 95.7 % (36.0-66.0); Platelet Count 255 x10^3/uL (150-450); Red Blood Count 3.06 x10^6/uL (4.1-5.6); Red Cell Distribution Width 13.3 % (11.5-14.0); White Blood Count 17.7 x10^3/uL (4.0-10.5)
[2021-11-22 04:51] LABS: ALBUMIN 3.3 g/dL (3.5-5.0); ALKALINE PHOSPHATASE 76 U/L (38-126); ANION GAP 7.2 MEQ/L (5-15); BLOOD UREA NITROGEN 24 mg/dL (9-20); CHLORIDE 107 mmol/L (98-107); Calcium 8.3 mg/dL (8.4-10.2); Carbon Dioxide 31 mmol/L (22-30); Creatinine 1 0.73 mg/dL (0.66-1.25); EST GLOMERULAR FILTRATION RATE > 60.0 ML/MIN; Glucose 165 mg/dL (74-106); Potassium 4.1 mmol/L (3.5-5.1); SGOT/AST 26 U/L (17-59); SGPT/ALT 34 U/L (0-50); SODIUM 140 mmol/L (137-145); Total Protein 6.2 g/dL (6.3-8.2)
[2021-11-22 05:40] LABS: Slide Review 1 YES
[2021-11-22] MEDS: solu-MEDROL 60 MG, Sterile H2O 10 ml 2 ML IV SCH ×2 (06:06)
[2021-11-22] MEDS: Protonix 40MG Tablet PO SCH (08:56)
[2021-11-22] MEDS: Senokot-S Tablet PO PRN (08:56)
[2021-11-22] MEDS: Proscar 5 MG PO SCH (08:57)
--- NOTE | 2021-11-22 09:05 | PCM.NOTE ---
Date and Time: 11/22/21 0856 Subjective Assessment: Pt is better than at admission, but still SOB. Desmond po well. Tried lying down flat all night but thinks it made it harder to breathe. sometimes producing white sputum. - Review of Systems Constitutional: No Fever Respiratory: Cough, Short Of Breath Objective Exam General Appearance: no apparent distress, alert Neurologic Exam: oriented x 3, cooperative Skin Exam: normal color, warm, dry, No rash Eye Exam: eyes nml inspection Ears, Nose, Throat Exam: moist mucous membranes Neck Exam: normal inspection Respiratory Exam: diminished breath sounds (good air exchange), prolonged expirations, No crackles/rales, No rhonchi, No wheezing Cardiovascular Exam: regular rate/rhythm, normal heart sounds, No murmur Gastrointestinal/Abdomen Exam: soft, normal bowel sounds, No tenderness, No distention, No mass, No guarding, No rebound Extremity Exam: other (RUE s/p remote amputation as usual), No pedal edema, No swelling Back Exam: normal inspection, No rash OBJECTIVE DATA Vital Signs: Vital Signs - 24 hr Temp Pulse Resp BP Pulse Ox 11/22/21 07:13 65 18 95 11/22/21 04:00 98.2 F 89 16 132/65 93 L 11/22/21 01:10 88 16 93 L 11/22/21 00:00 99.1 F 84 18 133/68 92 L 11/21/21 19:45 76 18 92 L 11/21/21 19:13 97.6 F 74 16 119/68 92 L 11/21/21 16:00 98.9 F 77 26 H 117/59 90 L 11/21/21 13:24 84 18 96 11/21/21 12:00 98.2 F 75 12 112/60 93 L Pain Assessment - Last Documented Pain Intensity 0 Intake and Output: Intake & Output 11/19/21 11/20/21 11/21/21 11/22/21 11:59 11:59 11:59 11:59 Intake Total 800 1203 1979 Output Total 800 Balance 0 1203 1979 Weight 59.421 kg 62.3 kg Lab Results: Lab Results-Last 24 Hours 11/21/21 11/21/21 11/21/21 Range/Units 04:45 05:30 05:30 WBC (4.0-10.5) x10^3/uL RBC (4.1-5.6) x10^6/uL Hgb (12.5-18.0) g/dL Hct (42-50) % MCV (78-100) fL MCH (26-32) pg MCHC (32-36) g/dL RDW (11.5-14.0) % Plt Count (150-450) x10^3/uL MPV (7.5-11.0) fL Gran % (36.0-66.0) % Immature Gran % (Auto) (0.00-0.4) % Reticulocyte % (Auto) (0.6-2.6) % Nucleat RBC Rel Count (0.00-0.1) % Eos # (Auto) (0-0.5) x10^3/uL Immature Gran # (Auto) (0.00-0.03) x10^3u/L Absolute Lymphs (auto) (1.0-4.6) x10^3/uL Absolute Monos (auto) (0.0-1.3) x10^3/uL Absolute Nucleated RBC (0.00-0.01) x10^3u/L Lymphocytes % (24.0-44.0) % Monocytes % (0.0-12.0) % Eosinophils % (0.00-5.0) % Basophils % (0.0-0.4) % Absolute Granulocytes (1.4-6.9) x10^3/uL Basophils # (0-0.4) x10^3/uL Retic Hgb Content (28-38) pg Sodium (137-145) mmol/L Potassium (3.5-5.1) mmol/L Chloride (98-107) mmol/L Carbon Dioxide (22-30) mmol/L Anion Gap (5-15) MEQ/L BUN (9-20) mg/dL Creatinine (0.66-1.25) mg/dL Estimated GFR ML/MIN Glucose (74-106) mg/dL Calcium (8.4-10.2) mg/dL Iron < 10 L (49-181) ug/dL Ferritin 81.0 (17.9-464) ng/mL Total Bilirubin (0.2-1.3) mg/dL AST (17-59) U/L ALT (0-50) U/L Alkaline Phosphatase (38-126) U/L Serum Total Protein (6.3-8.2) g/dL Albumin (3.5-5.0) g/dL Vitamin B12 349 (239-931) pg/mL Folic Acid 5.33 (2.76 - >20) ng/mL Procalcitonin 0.172 H (0.030-0.080) ng/mL Free T4 1.76 H (0.76-1.46) ng/dL TSH 3rd Generation 0.044 L (0.47-4.68) mIU/L Slides for Path Review 11/21/21 11/22/21 11/22/21 Range/Units 05:30 04:35 04:35 WBC 17.7 H (4.0-10.5) x10^3/uL RBC 3.06 L (4.1-5.6) x10^6/uL Hgb 8.5 L (12.5-18.0) g/dL Hct 27.8 L (42-50) % MCV 90.8 (78-100) fL MCH 27.8 (26-32) pg MCHC 30.6 L (32-36) g/dL RDW 13.3 (11.5-14.0) % Plt Count 255 (150-450) x10^3/uL MPV 9.2 (7.5-11.0) fL Gran % 95.7 H (36.0-66.0) % Immature Gran % (Auto) 1.1 H (0.00-0.4) % Reticulocyte % (Auto) 1.7 (0.6-2.6) % Nucleat RBC Rel Count 0.0 (0.00-0.1) % Eos # (Auto) 0 (0-0.5) x10^3/uL Immature Gran # (Auto) 0.19 H (0.00-0.03) x10^3u/L Absolute Lymphs (auto) 0.12 L (1.0-4.6) x10^3/uL Absolute Monos (auto) 0.42 (0.0-1.3) x10^3/uL Absolute Nucleated RBC 0.00 (0.00-0.01) x10^3u/L Lymphocytes % 0.7 L (24.0-44.0) % Monocytes % 2.4 (0.0-12.0) % Eosinophils % 0.0 (0.00-5.0) % Basophils % 0.1 (0.0-0.4) % Absolute Granulocytes 16.91 H (1.4-6.9) x10^3/uL Basophils # 0.01 (0-0.4) x10^3/uL Retic Hgb Content 23.0 L (28-38) pg Sodium 140 (137-145) mmol/L Potassium 4.1 (3.5-5.1) mmol/L Chloride 107 (98-107) mmol/L Carbon Dioxide 31 H (22-30) mmol/L Anion Gap 7.2 (5-15) MEQ/L BUN 24 H (9-20) mg/dL Creatinine 0.73 (0.66-1.25) mg/dL Estimated GFR > 60.0 ML/MIN Glucose 165 H (74-106) mg/dL Calcium 8.3 L (8.4-10.2) mg/dL Iron (49-181) ug/dL Ferritin (17.9-464) ng/mL Total Bilirubin 0.40 (0.2-1.3) mg/dL AST 26 (17-59) U/L ALT 34 (0-50) U/L Alkaline Phosphatase 76 (38-126) U/L Serum Total Protein 6.2 L (6.3-8.2) g/dL Albumin 3.3 L (3.5-5.0) g/dL Vitamin B12 (239-931) pg/mL Folic Acid (2.76 - >20) ng/mL Procalcitonin (0.030-0.080) ng/mL Free T4 (0.76-1.46) ng/dL TSH 3rd Generation (0.47-4.68) mIU/L Slides for Path Review YES Radiology Exams: Radiology Procedures Category Date Time Status CHEST 2 VIEWS (PA AND LAT) Routine Exams 11/22/21 Ordered Assessment/Plan (1) Multifocal pneumonia Current Visit: Yes Status: Acute Assessment & Plan: Continue zosyn and zithromax, day #4. Decrease steroid to 40mg IV q12 from 60mg IV q6h. Code(s): J18.9 - PNEUMONIA, UNSPECIFIED ORGANISM (2) COPD with exacerbation Current Visit: Yes Status: Acute Code(s): J44.1 - CHRONIC OBSTRUCTIVE PULMONARY DISEASE W (ACUTE) EXACERBATION (3) Anemia Current Visit: No Status: Acute Qualifiers: Anemia type: unspecified type Qualified Code(s): D64.9 - Anemia, unspecified Assessment & Plan: Will see in EMR when this started; had colonoscopy last year with Dr. Aviles (will get records). WIll need EGD, likely with Dr. Marvel Aviles. Code(s): D64.9 - ANEMIA, UNSPECIFIED (4) Hypertension Current Visit: No Status: Chronic Qualifiers: Hypertension type: primary hypertension Qualified Code(s): I10 - Essential (primary) hypertension Code(s): I10 - ESSENTIAL (PRIMARY) HYPERTENSION
--- NOTE | 2021-11-22 11:53 | XRAY ---
Indication: Follow-up pneumonia. Comparison: November 15, 2021 PA/lateral chest demonstrates worsening recurring mild bibasilar infiltrates/atelectasis. Also new small left and minimally worsening right effusions. Remaining chest unchanged again demonstrates COPD, mediastinal/pulmonary calcified granulomas, and right chest wall metallic shrapnel. Heart not enlarged.
[2021-11-22] MEDS: Senokot-S Tablet PO SCH (18:27)
[2021-11-22] MEDS: solu-MEDROL 40 MG, Sterile H2O 10 ml 1 ML IV SCH ×2 (18:27)
[2021-11-22] MEDS: Zithromax 500 MG/ 250 ML NaCl Premix 500 MG/250 ML IVPB IV SCH (22:33)
[2021-11-23] MEDS: DUONEB 0.5-3 MG/3 ml Neb IH SCH ×4 (01:10→18:38)
[2021-11-23] MEDS: PIPERACILLIN/TAZOBACTAM 3.375 GM in Sodium Chloride 100ML MINI-BAG PLUS 100 ML IV SCH ×3 (01:45→14:10)
[2021-11-23] MEDS: Dulcolax 10 MG SUPP PR ONE ×2 (01:46→04:08)
[2021-11-23] MEDS: solu-MEDROL 40 MG, Sterile H2O 10 ml 1 ML IV SCH ×4 (06:44→18:15)
[2021-11-23] MEDS ORDERED: CITROMA 296 ML PO ONE (08:49)
--- NOTE | 2021-11-23 08:55 | PCM.NOTE ---
Date and Time: 11/23/21 0849 Subjective Assessment: Pt had a small BM but would very much like to pass more stool (had dulcolax suppository and Fleet's enema). Having LE edema that is uncomfortable. Produced some sputum for sputum sample. Still on room air. Tolerating po. - Review of Systems Constitutional: No Fever Respiratory: Short Of Breath Cardiac: Edema Abdominal/Gastrointestinal: Constipation Objective Exam General Appearance: no apparent distress, alert Neurologic Exam: oriented x 3, cooperative Skin Exam: normal color, warm, dry, No rash Eye Exam: eyes nml inspection Ears, Nose, Throat Exam: moist mucous membranes Respiratory Exam: diminished breath sounds (good air exchange), No crackles/rales, No rhonchi, No wheezing Cardiovascular Exam: regular rate/rhythm, normal heart sounds, No murmur Gastrointestinal/Abdomen Exam: soft, normal bowel sounds Extremity Exam: other (RUE (s/p remote amputation) with distal edema. bilat LE with 1+ pitting edema distally.) OBJECTIVE DATA Vital Signs: Vital Signs - 24 hr Temp Pulse Resp BP Pulse Ox 11/23/21 06:48 98.9 F 75 16 144/81 97 11/23/21 06:43 90 18 97 11/23/21 04:00 98.6 F 74 20 158/76 94 L 11/23/21 01:10 85 18 93 L 11/22/21 23:37 97.8 F 76 18 137/70 93 L 11/22/21 19:06 97.5 F 77 19 128/73 94 L 11/22/21 18:58 76 18 95 11/22/21 16:00 97.9 F 81 16 181/71 96 11/22/21 13:18 87 18 96 11/22/21 12:00 98.6 F 85 15 152/73 96 Pain Assessment - Last Documented Pain Intensity 0 Intake and Output: Intake & Output 11/20/21 11/21/21 11/22/21 11/23/21 11:59 11:59 11:59 11:59 Intake Total 800 1203 1979 1460 Output Total 800 Balance 0 1203 1979 1460 Weight 59.421 kg 62.3 kg 63.5 kg 66.8 kg Radiology Exams: Radiology Procedures Category Date Time Status CHEST 2 VIEWS (PA AND LAT) Routine Exams 11/22/21 11:41 Completed Multi-Disciplinary Progress Notes: Multi-Disciplinary Progress Notes 11/22/21 09:16 Case Management Note by Shelli Melendrez S/W PATIENT- HE CONTINUES TO DENY ANY NEW NEEDS AT TIME OF DC. HE PLANS TO RETURN HOME TO HIS PRIOR LEVEL OF FUNCTIONING AT TIME OF DC Initialized on 11/22/21 09:16 - END OF NOTE Assessment/Plan (1) Multifocal pneumonia Current Visit: Yes Status: Acute Assessment & Plan: on zosyn and zithromax day #5. Still on RA. May be able to d/c to home today or tomorrow if feeling better. Code(s): J18.9 - PNEUMONIA, UNSPECIFIED ORGANISM (2) Leg edema Current Visit: Yes Status: Acute Assessment & Plan: Bilat - lasix today. Echo 04/19 with EF 58%. Code(s): R60.0 - LOCALIZED EDEMA (3) COPD with exacerbation Current Visit: Yes Status: Acute Assessment & Plan: on IV steroid 40mg q12h. home on prednisone. Code(s): J44.1 - CHRONIC OBSTRUCTIVE PULMONARY DISEASE W (ACUTE) EXACERBATION (4) Anemia Current Visit: No Status: Chronic Qualifiers: Anemia type: unspecified type Qualified Code(s): D64.9 - Anemia, unspecified Assessment & Plan: First noted 08/2020. Had EGD/colonoscopy with Maldonado Aviles in Oct 2020, mild gastritis otherwise nl. Had 5 doses venofer in April 2021; hgb nl until Sep 2021 when noted to be 11.7. By yesterday was 8.5. Will check hemoccult. May just need to f/u outpatient with surgery to ensure no more scopes needed at this time, but if hemoccult is positive would ask surgery to re-scope the patient. Code(s): D64.9 - ANEMIA, UNSPECIFIED (5) Hypertension Current Visit: No Status: Chronic Qualifiers: Hypertension type: primary hypertension Qualified Code(s): I10 - Essential (primary) hypertension Code(s): I10 - ESSENTIAL (PRIMARY) HYPERTENSION (6) Constipation Current Visit: Yes Status: Acute Qualifiers: Constipation type: slow transit constipation Qualified Code(s): K59.01 - Slow transit constipation Assessment & Plan: Mag citrate today. Code(s): K59.00 - CONSTIPATION, UNSPECIFIED
[2021-11-23] MEDS: Lasix 40 MG/4 ML IV SCH ×2 (09:19→16:15)
[2021-11-23] MEDS: Protonix 40MG Tablet PO SCH (10:53)
[2021-11-23] MEDS: Proscar 5 MG PO SCH (10:54)
[2021-11-23] MEDS: Miralax Powder 17GM PACKET PO SCH (10:58)
[2021-11-23] MEDS: Senokot-S Tablet PO SCH (18:15)
[2021-11-23 21:46] LABS: Appearance CLEAR (CLEAR)
[2021-11-23 21:47] LABS: Bilirubin NEGATIVE (NEGATIVE); Dipstick done @ ? MAIN LAB; Glucose NEGATIVE (NEGATIVE); Ketones NEGATIVE (NEGATIVE); Nitrite NEGATIVE (NEGATIVE); Ph 5.5 (5-6); Protein,Urine Dip NEGATIVE (Negative); RBC TRACE-INTACT Ery/ul (0-5); Specific Gravity 1.015 (1.005-1.025); Urobilinogen 0.2 mg/dL (0-1)
[2021-11-23 21:56] LABS: Hyaline Casts 0-2 /LPF (0-2); Mucus SLIGHT /HPF (NEGATIVE); RBC 0-2 /HPF (0-2)
[2021-11-23 22:00] LABS: Urine Cultured Indicated? NO
[2021-11-24] MEDS: DUONEB 0.5-3 MG/3 ml Neb IH SCH ×2 (01:19→06:34)
[2021-11-24] MEDS: solu-MEDROL 40 MG, Sterile H2O 10 ml 1 ML IV SCH ×2 (05:00)
[2021-11-24 05:15] LABS: Absolute Neutrophil Ct (ANC) 7.44 x10^3/uL (1.4-6.9); Basophil (Absolute #) 0.02 x10^3/uL (0-0.4); Eosinophil % 0.1 % (0.00-5.0); Eosinophil (Absolute #) 0.01 x10^3/uL (0-0.5); Hematocrit 25.8 % (42-50); Lymphocytes % 4.5 % (24.0-44.0); Mean Corpuscular Hemoglobin 27.6 pg (26-32); Mean Platelet Volume 9.3 fL (7.5-11.0); Monocyte (Absolute #) 0.59 x10^3/uL (0.0-1.3); Monocytes % 6.7 % (0.0-12.0); Neutrophil % 83.9 % (36.0-66.0); Platelet Count 261 x10^3/uL (150-450); Red Cell Distribution Width 13.5 % (11.5-14.0); White Blood Count 8.9 x10^3/uL (4.0-10.5)
[2021-11-24 05:46] LABS: ALBUMIN 2.9 g/dL (3.5-5.0); ALKALINE PHOSPHATASE 61 U/L (38-126); ANION GAP 5.5 MEQ/L (5-15); BLOOD UREA NITROGEN 31 mg/dL (9-20); CHLORIDE 100 mmol/L (98-107); Calcium 7.9 mg/dL (8.4-10.2); Carbon Dioxide 36 mmol/L (22-30); Creatinine 1 0.75 mg/dL (0.66-1.25); EST GLOMERULAR FILTRATION RATE > 60.0 ML/MIN; Glucose 113 mg/dL (74-106); Potassium 3.8 mmol/L (3.5-5.1); SGOT/AST 19 U/L (17-59); SGPT/ALT 35 U/L (0-50); SODIUM 138 mmol/L (137-145); Total Protein 5.4 g/dL (6.3-8.2)
[2021-11-24 05:55] LABS: Slide Review 1 YES
[2021-11-24] MEDS: Proscar 5 MG PO SCH (08:40)
[2021-11-24] MEDS: Protonix 40MG Tablet PO SCH (08:40)
[2021-11-24] MEDS: Lasix 40 MG/4 ML IV SCH (08:41)
[2021-11-24] MEDS: Miralax Powder 17GM PACKET PO SCH (08:45)
--- NOTE | 2021-11-24 09:08 | PCM.DS ---
Discharge Summary Date of Admission: 11/20/21 07:54 Admitting Physician: SUMEET DE LA CRUZ Consults: Consults on Case 11/23/21 07:02 Consult Surgery ROUTINE Primary Care Provider: JONATHAN GOMEZ Allergies Allergies No Known Drug Allergies Allergy (Verified 11/21/21 07:42) Hospital Summary - Hospital Course Hospital Course: Pt is 70 yo patient of mine with BPH and CAD with mitral valve regurgitation who was admitted through ER with mutifocal pna. He had been seen in office by me and was being evaluated for SOB; CXR was neg and echo was done. He was found to have pna on CT scan in ER. WBC were nl. Neg for PE. He was admitted on IV zosyn and zithromax, with IV steroids. He never required O2. Improved with respect to breathing, but had constipation which required enema and senna, dulcolax suppository, and miralax. He started having increased edema yesterday, which not only affected the LE and buttocks but his penis. He was given 40mg IV lasix x 2 yesterday with improvement. He was not on any IV fluids during this time. In the evening he had not urinated and was having abd pain with palpable bladder per RN so mills catheter was placed with 400 cc out. Hgb has been stable around 8. Staff discussed surgery consult with Dr. Soto but he deferred EGD/colonoscopy for now. Pt's anemia started August 2020, EGD/colonoscopy done by Maldonado Aviles on Oct 2020. Hgb improved in April 2021 with venofer infusions but was only normal through June 2021 and is now stable around 8.0. Today the swelling has improved. Pt is concerned about the cause of the swelling. We did stop the steroid and the antibiotics. Will keep the mills in due to concerns about urinary retention; will f/u with urology outpatient. No echo result is back yet, but will have him f/u with cardiology soon. F/u with me on Sunday. - Vitals & Intake/Output Vital Signs: Vital Signs Temperature 98.6 F 11/24/21 07:11 Pulse Rate 76 11/24/21 07:11 Respiratory Rate 16 11/24/21 07:11 Blood Pressure 138/73 11/24/21 07:11 O2 Sat by Pulse Oximetry 96 11/24/21 07:11 Intake & Output: Intake & Output 11/21/21 11/22/21 11/23/21 11/24/21 11:59 11:59 11:59 11:59 Intake Total 1203 1979 1460 1293 Output Total 1200 Balance 1203 1979 1460 93 Weight 62.3 kg 63.5 kg 66.8 kg 63.3 kg - Lab Result Diagrams: 11/24/21 04:55 11/24/21 04:55 Lab Results-Last 24 Hrs: Lab Results-Last 24 Hours 11/21/21 11/23/21 11/23/21 Range/Units 19:53 08:00 21:15 WBC (4.0-10.5) x10^3/uL RBC (4.1-5.6) x10^6/uL Hgb (12.5-18.0) g/dL Hct (42-50) % MCV (78-100) fL MCH (26-32) pg MCHC (32-36) g/dL RDW (11.5-14.0) % Plt Count (150-450) x10^3/uL MPV (7.5-11.0) fL Gran % (36.0-66.0) % Immature Gran % (Auto) (0.00-0.4) % Nucleat RBC Rel Count (0.00-0.1) % Eos # (Auto) (0-0.5) x10^3/uL Immature Gran # (Auto) (0.00-0.03) x10^3u/L Absolute Lymphs (auto) (1.0-4.6) x10^3/uL Absolute Monos (auto) (0.0-1.3) x10^3/uL Absolute Nucleated RBC (0.00-0.01) x10^3u/L Lymphocytes % (24.0-44.0) % Monocytes % (0.0-12.0) % Eosinophils % (0.00-5.0) % Basophils % (0.0-0.4) % Absolute Granulocytes (1.4-6.9) x10^3/uL Basophils # (0-0.4) x10^3/uL Sodium (137-145) mmol/L Potassium (3.5-5.1) mmol/L Chloride (98-107) mmol/L Carbon Dioxide (22-30) mmol/L Anion Gap (5-15) MEQ/L BUN (9-20) mg/dL Creatinine (0.66-1.25) mg/dL Estimated GFR ML/MIN Glucose (74-106) mg/dL Calcium (8.4-10.2) mg/dL Magnesium (1.6-2.3) mg/dL Total Bilirubin (0.2-1.3) mg/dL AST (17-59) U/L ALT (0-50) U/L Alkaline Phosphatase (38-126) U/L NT-Pro-B Natriuret Pep (0-900) pg/mL Serum Total Protein (6.3-8.2) g/dL Albumin (3.5-5.0) g/dL Total T3 70 L (71-180) ng/dL Urinalys Dipstick Clnc MAIN LAB Urine Color YELLOW (YELLOW) Urine Appearance CLEAR (CLEAR) Urine pH 5.5 (5-6) Ur Specific [place] 1.015 (1.005-1.025) POC Urine Protein Conf NEGATIVE (Negative) Urine Ketones NEGATIVE (NEGATIVE) Urine Nitrite NEGATIVE (NEGATIVE) Urine Bilirubin NEGATIVE (NEGATIVE) Urine Urobilinogen 0.2 (0-1) mg/dL Urine Leukocytes NEGATIVE (NEGATIVE) Urine WBC (Auto) NONE (0-5) /HPF Urine RBC (Auto) 0-2 (0-2) /HPF U Hyaline Cast (Auto) 0-2 (0-2) /LPF U Epithel Cells (Auto) NONE (FEW) /HPF Urine Bacteria (Auto) NONE (NEGATIVE) /HPF Urine RBC TRACE-INTACT (0-5) [place]esar/ul Urine Mucus (Auto) SLIGHT (NEGATIVE) /HPF Ur Culture Indicated? NO Urine Glucose NEGATIVE (NEGATIVE) mg/dL Stool Occult Blood NEGATIVE (NEGATIVE) Slides for Path Review 11/24/21 11/24/21 11/24/21 Range/Units 04:55 04:55 04:55 WBC 8.9 (4.0-10.5) x10^3/uL RBC 2.90 L (4.1-5.6) x10^6/uL Hgb 8.0 L (12.5-18.0) g/dL Hct 25.8 L (42-50) % MCV 89.0 (78-100) fL MCH 27.6 (26-32) pg MCHC 31.0 L (32-36) g/dL RDW 13.5 (11.5-14.0) % Plt Count 261 (150-450) x10^3/uL MPV 9.3 (7.5-11.0) fL Gran % 83.9 H (36.0-66.0) % Immature Gran % (Auto) 4.6 H (0.00-0.4) % Nucleat RBC Rel Count 0.3 H (0.00-0.1) % Eos # (Auto) 0.01 (0-0.5) x10^3/uL Immature Gran # (Auto) 0.41 H (0.00-0.03) x10^3u/L Absolute Lymphs (auto) 0.40 L (1.0-4.6) x10^3/uL Absolute Monos (auto) 0.59 (0.0-1.3) x10^3/uL Absolute Nucleated RBC 0.03 H (0.00-0.01) x10^3u/L Lymphocytes % 4.5 L (24.0-44.0) % Monocytes % 6.7 (0.0-12.0) % Eosinophils % 0.1 (0.00-5.0) % Basophils % 0.2 (0.0-0.4) % Absolute Granulocytes 7.44 H (1.4-6.9) x10^3/uL Basophils # 0.02 (0-0.4) x10^3/uL Sodium 138 (137-145) mmol/L Potassium 3.8 (3.5-5.1) mmol/L Chloride 100 (98-107) mmol/L Carbon Dioxide 36 H (22-30) mmol/L Anion Gap 5.5 (5-15) MEQ/L BUN 31 H (9-20) mg/dL Creatinine 0.75 (0.66-1.25) mg/dL Estimated GFR > 60.0 ML/MIN Glucose 113 H (74-106) mg/dL Calcium 7.9 L (8.4-10.2) mg/dL Magnesium 2.0 (1.6-2.3) mg/dL Total Bilirubin 0.30 (0.2-1.3) mg/dL AST 19 (17-59) U/L ALT 35 (0-50) U/L Alkaline Phosphatase 61 (38-126) U/L NT-Pro-B Natriuret Pep 1050 H (0-900) pg/mL Serum Total Protein 5.4 L (6.3-8.2) g/dL Albumin 2.9 L (3.5-5.0) g/dL Total T3 (71-180) ng/dL Urinalys Dipstick Clnc Urine Color (YELLOW) Urine Appearance (CLEAR) Urine pH (5-6) Ur Specific [place] (1.005-1.025) POC Urine Protein Conf (Negative) Urine Ketones (NEGATIVE) Urine Nitrite (NEGATIVE) Urine Bilirubin (NEGATIVE) Urine Urobilinogen (0-1) mg/dL Urine Leukocytes (NEGATIVE) Urine WBC (Auto) (0-5) /HPF Urine RBC (Auto) (0-2) /HPF U Hyaline Cast (Auto) (0-2) /LPF U Epithel Cells (Auto) (FEW) /HPF Urine Bacteria (Auto) (NEGATIVE) /HPF Urine RBC (0-5) Jul[place]esar/ul Urine Mucus (Auto) (NEGATIVE) /HPF Ur Culture Indicated? Urine Glucose (NEGATIVE) mg/dL Stool Occult Blood (NEGATIVE) Slides for Path Review YES Micro Results-Entire Visit: Microbiology 11/20/21 01:30 Blood Culture Gram Stain - Final Blood Not Reportable Blood Culture - Final NO GROWTH 11/20/21 00:00 Blood Culture Gram Stain - Final Blood Not Reportable Blood Culture - Final NO GROWTH - Radiology Exams Ordered Rad Exams-Entire Visit: Radiology Procedures Category Date Time Status CHEST 2 VIEWS (PA AND LAT) Routine Exams 11/22/21 11:41 Completed - Procedures and Test Procedures and Tests throughout Hospitalization: Therapy Orders & Screens 11/19/21 23:15 Respiratory Therapy Assessment DAILY Comment: 11/20/21 02:27 Oxygen Nasal Cannula 2 lpm Comment: 11/20/21 04:52 Smoking Cessation Education ONCE Comment: Diagnosis: Multifocal pneumonia Smoking Status: Former smoker How long have you smoked: 50 Have you smoked in the past 12 months: Yes Do you dip or chew tobacco: No If,Former Smoker,when did you quit: 1 week 11/22/21 13:40 Flutter Therapy UD Comment: Diagnosis: Multifocal pneumonia Discharge Exam General Appearance: no apparent distress, alert Neurologic Exam: oriented x 3, cooperative Eye Exam: eyes nml inspection Neck Exam: normal inspection Respiratory Exam: normal breath sounds, lungs clear, No crackles/rales, No rhonchi, No wheezing Cardiovascular Exam: regular rate/rhythm, normal heart sounds, No murmur Extremity Exam: other (ankle and foot with tr edema bilat.) Skin Exam: normal color, warm, dry, No rash Final Diagnosis/Problem List - Final Discharge Diagnosis/Problem (1) Multifocal pneumonia Current Visit: Yes Status: Acute Assessment & Plan: Has finished 5d of antibiotics. Will not send home on abx or steroids. Code(s): J18.9 - PNEUMONIA, UNSPECIFIED ORGANISM (2) Urinary retention Current Visit: Yes Status: Acute Code(s): R33.9 - RETENTION OF URINE, UNSPECIFIED (3) Leg edema Current Visit: Yes Status: Acute Assessment & Plan: possible steroid reaction, vs chf. Echo is pending. Will give 1 more dose IV lasix and send home on po lasix 20mg/d. Code(s): R60.0 - LOCALIZED EDEMA (4) COPD with exacerbation Current Visit: Yes Status: Acute Code(s): J44.1 - CHRONIC OBSTRUCTIVE PULMONARY DISEASE W (ACUTE) EXACERBATION (5) Anemia Current Visit: No Status: Chronic Assessment & Plan: Pt does not want any more venofer, feels he reacted to it. He was being seen by Dr. Jiménez but does not want to return to [place] for that. I would like him to f/u with Dr. Maldonado Aviles once more outpatient to see if he would benefit from repeat EGD/colonoscopy (last done Oct 2020). Explained if under 7 hgb he will need transfusion. Code(s): D64.9 - ANEMIA, UNSPECIFIED (6) Hypertension Current Visit: No Status: Chronic Code(s): I10 - ESSENTIAL (PRIMARY) HYPERT ENSION (7) Constipation Current Visit: Yes Status: Resolved Code(s): K59.00 - CONSTIPATION, UNSPECIFIED - Discharge Disposition: Home, Self-Care Condition: Stable Prescriptions: New Furosemide 20 mg [Lasix 20 mg] 20 mg PO DAILY #30 tablet Potassium Chloride 10 meq PO DAILY #30 tablet Continue Albuterol Sulfate [Albuterol Sulfate Hfa] 8.5 gm IH Q6H PRN 7 Days #1 inh PRN Reason: Cough Finasteride [Proscar] 5 mg PO DAILY Discontinued Dexamethasone [Decadron] 6 mg PO DAILY #5 tablet Levofloxacin [Levaquin 500 MG Tablet] 500 mg PO DAILY #7 tablet Follow up with: LORRIE AVILES [ACTIVE STAFF] - JONATHAN GOMEZ [Primary Care Provider] -
[2021-11-24 12:09] VITALS: BP 125/74; PULSE 84; O2SAT 91
== END 2021-11-24 12:26 | disposition home or self-care (01) | DRG 194 ==
LOC: ED 20:54 → MED SURG 11-20 02:10 → UNDOADMOB 11-20 02:10 → MED SURG 11-20 02:17 → MERGE 11-20 02:17 → OBSVTOIN 11-20 07:54
PROVIDERS: ADMIT Family Medicine; ATTEND Family Medicine
DX: J18.9 Pneumonia, unspecified organism (principal); J44.1 Chronic obstructive pulmonary disease with (acute) exacerbation; R33.9 Retention of urine, unspecified; R60.0 Localized edema; D64.9 Anemia, unspecified; I10 Essential (primary) hypertension; K59.00 Constipation, unspecified; Z79.899 Other long term (current) drug therapy; Z20.828 Contact with and (suspected) exposure to other viral communicable diseases; Z87.891 Personal history of nicotine dependence; Z85.46 Personal history of malignant neoplasm of prostate
CPT/HCPCS: 0241U; 36000; 36415; 71046; 71260; 80048; 80053; 81015; 82607; 82728; 82746; 83540; 83605; 83735; 83880; 84145; 84439; 84443; 84480; 84484; 85025; 85045; 85046; 87040; 87070; 93005; 93306; 94640; 94667; 94668; 94760; 96365; 96374; 99285; G0328; G0378; 82274; J0456; J1756; J1940; J2920; J2930; A9270-GY

== ENCOUNTER 2021-11-25 06:09 | Emergency (ER) | payer MEDICARE ==
[2021-11-25 06:29] VITALS: BP 182/117; PULSE 76; O2SAT 97
--- NOTE | 2021-11-25 06:40 | ERPHSYRPT ---
- History of Present Illness Time Seen by Provider: 11/25/21 06:34 Source: patient Exam Limitations: no limitations Patient Subjective Stated Complaint: pt states "I was discharged from here yesterday and went home with cath. My dogs pulled it out. I haven't urinated since." Triage Nursing Assessment: pt ambulated into the er; pt is axo x4; c/o urinary retention; pt states 10/10 to lower abd; distention present to lower abd; abd flat, tender; active bowel sounds in all quads; hypertension Physician History: 70-year-old male with history of tobacco abuse, COPD, BPH was recently admitted for difficulty breathing and Partida catheter was placed and because of his difficulty urination, was discharged yesterday and accidentally his dog jumped on it and pulled it out and since then he is unable to urinate. Reports there was minimal bleeding when he pulled out but no bleeding currently. Reports 10/10 intensity sharp pain with lower abdominal distention. Minimal movements and palpation of lower abdomen cause worsening of pain. Patient wants catheter to be placed back in. Timing/Duration: yesterday, constant, gradual onset, worse Quality: sharpness Onset Location: suprapubic Severity of Pain-Max: severe Severity of Pain-Current: severe Modifying Factors: Worsens With: movement, palpation Associated Symptoms: lower back pain Sexual intercourse history: non-contributory Allergies/Adverse Reactions: No Known Drug Allergies Allergy (Verified 11/25/21 06:16) Home Medications: Finasteride [Proscar] 5 mg PO DAILY 11/19/21 [History] Hx Tetanus, Diphtheria Vaccination/Date Given: Yes Hx Influenza Vaccination/Date Given: No Hx Pneumococcal Vaccination/Date Given: No Travel Risk - International Travel Have you traveled outside of the country in past 3 weeks: No - Coronavirus Screening Are you exhibiting any of the following symptoms?: No Close contact with a COVID-19 positive Pt in past 14-21 Days: No - Vaccine Status Have you recieved a Covid-19 vaccination: No - Past Medical History Pertinent Past Medical History: Yes Neurological History: No Pertinent History ENT History: Macular Degeneration Cardiac History: Other Respiratory History: No Pertinent History, COPD Endocrine Medical History: No Pertinent History Musculoskeletal History: Arthritis GI Medical History: Diverticulosis, Diverticulitis, Hemorrhoids History: No Pertinent History, Other Psycho-Social History: No Pertinent History Male Reproductive Disorders: Prostate Problems, Prostate Cancer Other Medical History: kidney stone, mitral valve prolapse, heart starting to enlarge possibly from a bleed, anemia - Past Surgical History Past Surgical History: Yes Neuro Surgical History: No Pertinent History Cardiac: No Pertinent History Respiratory: No Pertinent History Gastrointestinal: Bowel Surgery Genitourinary: No Pertinent History Musculoskeletal: Orthopedic Surgery, Amputation Male Surgical History: No Pertinent History Other Surgical History: CYSTOSCOPY TO REMOVE KIDNEY STONE. RIGHT BELOW ELBOW AMPUTEE. RIGHT LEG SURGERY. portion of bowel and stomach removed - Social History Smoking Status: Current every day smoker How long have you smoked: 50 yrs Exposure to second hand smoke: Yes Alcohol Use: Socially Drug Use: none Patient Lives Alone: No Significant Family History: no pertinent family hx - Review of Systems Constitutional: No Symptoms Ears, Nose, & Throat: No Symptoms Respiratory: Cough, Dyspnea Cardiac: No Symptoms Abdominal/Gastrointestinal: Abdominal Pain Genitourinary Symptoms: Urinary Retention Musculoskeletal: Back Pain, Deformity Skin: No Symptoms Neurological: No Symptoms Psychological: No Symptoms Endocrine: No Symptoms Hematologic/Lymphatic: No Symptoms - Nursing Vital Signs Nursing Vital Signs: Initial Vital Signs Temperature 98.7 F 11/25/21 06:18 Pulse Rate 76 11/25/21 06:18 Respiratory Rate 18 11/25/21 06:18 Blood Pressure 182/117 11/25/21 06:18 O2 Sat by Pulse Oximetry 97 11/25/21 06:18 Pain Scale Pain Intensity 10 - Physical Exam General Appearance: mild distress, alert Eye Exam: PERRL/EOMI Ears, Nose, Throat Exam: normal ENT inspection, pharynx normal Neck Exam: normal inspection, full range of motion Respiratory Exam: rhonchi, wheezing, No accessory muscle use Cardiovascular Exam: regular rate/rhythm, normal heart sounds Gastrointestinal/Abdomen Exam: soft, normal bowel sounds, tenderness (Suprapubic distention, tenderness.) Male Genital Exam: normal genitalia, No erythema, No scrotum tenderness (R), No scrotum tenderness (L) Back Exam: normal inspection Extremity Exam: normal inspection, normal range of motion, other (Right forearm amputation) Neurologic Exam: alert, oriented x 3, cooperative Skin Exam: normal color SpO2 Interpretation: normal SpO2: 97 O2 Delivery: Room Air - Progress Progress Note: 11/25/21 06:39 Partida catheter is placed in with relieve of distention. Outpatient urology follow-up recommended. Counseled pt/family regarding: diagnosis - Departure Departure Disposition: Home Clinical Impression: Urinary retention Condition: Stable Critical Care Time: No Referrals: JONATHAN GOMEZ [Primary Care Provider] - Follow up/PCP as directed (1-2 days for elevation) Instructions: Urinary Retention (DC) Additional Instructions: Keep appointment with your urologist at 11 AM today for reevaluation.
[2021-11-25 06:53] LABS: Appearance CLEAR (CLEAR); Bilirubin NEGATIVE (NEGATIVE); Dipstick done @ ? MAIN LAB; Glucose NEGATIVE (NEGATIVE); Ketones NEGATIVE (NEGATIVE); Nitrite NEGATIVE (NEGATIVE); Protein,Urine Dip NEGATIVE (Negative); RBC MODERATE Ery/ul (0-5); Urobilinogen 0.2 mg/dL (0-1)
[2021-11-25 07:03] LABS: Bacteria NONE SEEN /HPF (NEGATIVE); Epithelial Cells RARE /HPF (FEW); RBC 26-50 /HPF (0-2); Urine Cultured Indicated? YES; WBC 0-2 /HPF (0-5)
== END 2021-11-25 07:15 | disposition home or self-care (01) ==
LOC: ED 06:09
DX: R33.9 Retention of urine, unspecified (principal); R10.2 Pelvic and perineal pain; J44.9 Chronic obstructive pulmonary disease, unspecified; Z72.0 Tobacco use; Z79.899 Other long term (current) drug therapy; Z28.310 Unvaccinated for COVID-19
CPT/HCPCS: 51701; 51702; 81015; 87086; 99283